=== PATIENT | male | born 1950 | race Caucasian/White ===

== ENCOUNTER 2017-12-26 22:13 | Emergency (ER) | payer MEDICARE, MEDICAID ==
[~2017-12-26] VITALS: Ht 188 cm; Wt 92.1 kg
[2017-12-26 22:31] VITALS: BP 95/52
[2017-12-26 22:44] LABS: HEMATOCRIT 37.2 % (42.0-52.0); HEMOGLOBIN 12.4 G/DL (14.2-18.0); MEAN CORPUSCULAR VOLUME 93 FL (80-99); PLATELET COUNT 95 K/UL (150-450); RED CELL DISTRIBUTION WIDTH 12.3 % (11.6-14.8); WHITE BLOOD COUNT 3.2 K/UL (4.8-10.8)
--- NOTE | 2017-12-26 22:47 | Emergency Room Report ---
History of Present Illness General Chief Complaint: Fever Source: Patient, Medical Record Present Illness HPI 67-year-old male sent from halfway for episode of fever today, was given Tylenol prior to arrival. Patient himself denies complaints Endorses 2 days of diarrhea, twice a day, last episode was 5 hours ago. no Blood in diarrhea, no recent antibiotic use No history of diverticulitis or colitis. No prior surgical history. Also endorses dry cough intermittent for one week, no history of asthma or COPD. Allergies: Coded Allergies: No Known Allergies (Unverified , 12/26/17) Patient History Past Medical History: DM, HTN Past Surgical History: none Pertinent Family History: none Social History: Denies: smoking, alcohol use, drug use Immunizations: UTD Reviewed Nursing Documentation: PMH: Agreed, PSxH: Agreed Nursing Documentation-PMH Past Medical History: No History, Except For Hx Hypertension: Yes Hx COPD: Yes Hx Diabetes: Yes - dm2 Hx Seizures: Yes - epilepsy Review of Systems All Other Systems: negative except mentioned in HPI Physical Exam Vital Signs Date Time Temp Pulse Resp B/P (MAP) Pulse Ox O2 Delivery O2 Flow Rate FiO2 12/26/17 22:04 99.3 90 16 84/50 96 Room Air Sp02 EP Interpretation: reviewed, normal General Appearance: normal inspection, well appearing, no apparent distress, alert, GCS 15, non-toxic, other - Very well-appearing, reading Bible in stretcher Head: normocephalic, atraumatic Eyes: bilateral eye PERRL, bilateral eye EOMI ENT: normal ENT inspection, hearing grossly normal, normal pharynx, no angioedema, normal voice, TMs + canals normal, uvula midline, moist mucus membranes Neck: normal inspection, full range of motion, supple, thyroid normal, no meningismus, no bony tend Respiratory: normal inspection, lungs clear, normal breath sounds, no rhonchi, no respiratory distress, no retraction, no accessory muscle use, no wheezing, speaking full sentences Cardiovascular #1: regular rate, rhythm, no edema, no JVD, normal capillary refill Gastrointestinal: normal inspection, normal bowel sounds, non tender, soft, no mass, no peritonitis, non-distended, no guarding, no hernia, no pulsatile mass Genitourinary: no CVA tenderness Musculoskeletal: normal inspection, back normal, normal range of motion, no calf tenderness, pelvis stable, Starla's Sign negative Neurologic: normal inspection, alert, oriented x3, responsive, armhole sewer III-XII nml as tested, motor strength/tone normal, cerebellar normal, normal gait, speech normal Psychiatric: normal inspection, judgement/insight normal, mood/affect normal, no suicidal/homicidal ideation, no delusions Skin: normal inspection, normal color, no rash Lymphatic: normal inspection, no adenopathy Medical Decision Making ER Course VSS, very well appearing Influenza negative Chest x-ray negative for pneumonia labs unremarkable No additional episodes of diarrhea in the ER No abdominal pain, nonfocal abdomen on serial exam urinalysis also negative for infection Will discharge back to [facility] ER course: Patient has remained stable during ED stay. Disposition: Patient is to be discharged to home. Patient is instructed to follow up with their primary care doctor within 1-2 days. Strict return precautions discussed with patient such as fever, chills, worsening/severe pain, nausea, vomiting, which may indicate severe illness. Patient verbalizes understanding and agrees with plan. Please note that this Emergency Department Report was dictated using [employer] technology software, occasionally this can lead to erroneous entry secondary to interpretation by the dictation equipment Rhythm Strip Diag. Results EP Interpretation: yes Rate: 77 Rhythm: NSR, no PVC's, no ectopy Chest X-Ray Diagnostic Results Chest X-Ray Diagnostic Results : Chest X-Ray Ordered: Yes # of Views/Limited/Complete: 1 View Indication: Other - cough EP Interpretation: Yes Interpretation: no consolidation, no effusion, no pneumothorax, no acute cardiopulmonary disease Impression: No acute disease Electronically Signed by: Dr Yesenia Brand MD Last Vital Signs Date Time Temp Pulse Resp B/P (MAP) Pulse Ox O2 Delivery O2 Flow Rate FiO2 12/26/17 22:31 98.4 78 16 95/52 96 Room Air Status: improved Disposition: [facility] YESENIA BRAND M.D. Dec 26, 2017 22:46
[2017-12-26 22:55] LABS: ANION GAP 7 mmol/L (5-15); BLOOD UREA NITROGEN 29 mg/dL (7-18); CARBON DIOXIDE 28 MMOL/L (21-32); CHLORIDE 106 MMOL/L (98-107); CREATININE 1.3 MG/DL (0.55-1.30); POTASSIUM 3.5 MMOL/L (3.5-5.1); SODIUM 141 MMOL/L (136-145)
[2017-12-26 22:59] LABS: ALANINE AMINOTRANSFERASE 27 U/L (12-78); ALBUMIN 3.1 G/DL (3.4-5.0); ALKALINE PHOSPHATASE 49 U/L (46-116); ASPARTATE AMINO TRANSFERASE 26 U/L (15-37); BILIRUBIN,TOTAL 0.5 MG/DL (0.2-1.0)
[2017-12-26 23:20] LABS: APPEARANCE,URINE CLEAR; BILIRUBIN, URINE NEGATIVE (NEGATIVE); GLUCOSE, URINE (UA) NEGATIVE (NEGATIVE); KETONES,URINE 1+ (NEGATIVE); LEUKOCYTE ESTERASE ,URINE 1+ (NEGATIVE); NITRITE,URINE NEGATIVE (NEGATIVE); PH,URINE 5 (4.5-8.0); PROTEIN,URINE 1+ (NEGATIVE); UROBILINOGEN,URINE NORMAL MG/DL (0.0-1.0)
[2017-12-26 23:21] LABS: COLOR,URINE YELLOW
[2017-12-26 23:56] VITALS: BP 95/49
[2017-12-27 01:00] VITALS: BP 99/57
--- NOTE | 2017-12-27 10:02 | Diagnostic Imaging Report ---
Indication: Dyspnea Technique: XRAY Chest 1v Comparison: None Findings: Heart size and mediastinal contours are within normal limits given technique. There is no focal consolidation, pneumothorax or pleural effusion. Osseous structures demonstrate no acute abnormality. Impression: No radiographic evidence of acute cardiopulmonary disease.
== END 2017-12-27 01:00 | disposition home or self-care (01) ==
LOC: EDBD 22:13 → EMR 22:23
DX: R50.9 Fever, unspecified (principal); R19.7 Diarrhea, unspecified; E11.9 Type 2 diabetes mellitus without complications; I10 Essential (primary) hypertension; J44.9 Chronic obstructive pulmonary disease, unspecified; G40.909 Epilepsy, unspecified, not intractable, without status epilepticus
CPT/HCPCS: 36415; 71045; 80053; 81003; 85007; 85025; 86710; 99283

== ENCOUNTER 2018-10-04 09:16 | Inpatient (IN) | payer MEDICARE, OTHER ==
[~2018-10-04] VITALS: Ht 188 cm; Wt 92.5 kg
[~2018-10-04 09:16] MED LIST: ACETAMINOPHEN325 M1 ORAL; AMBIEN5 MG ORAL; AMLODIPINE BESYL5 MG ORAL; ASCORBIC ACID500 MG ORAL; ASPIRIN325 MG ORAL; ATIVAN1 MG ORAL; COLACE100 MG ORAL; DEPAKOTE ER500 MG ORAL; ESCITALOPRAM OX20 MG ORAL; GEODON20 MG ORAL; JANUVIA100 MG ORAL; LEVETIRACETAM750 M1 ORAL; LITHIUM CARBON300 MG ORAL; LOSARTAN POTASS50 MG ORAL; METFORMIN HCL500 M1 ORAL; MIRALAX17 G2 ORAL; MYLANTA30 M1 ORAL; NOVOLOG100 UNIT/5; OMEPRAZOLE40 M1 ORAL; PROPRANOLOL HCL10 MG ORAL; PROSCAR5 MG ORAL; QUETIAPINE FUMA50 MG ORAL; SENNA8.6 M2 PO; TAMSULOSIN HCL0.4 MG ORAL
[2018-10-04] MEDS ORDERED: JANUVIA25 MG ORAL (09:24)
[2018-10-04] MEDS ORDERED: QUETIAPINE FUMA50 MG ORAL (09:24)
[2018-10-04] MEDS ORDERED: Isovue-300 100ml vial INJ PRN (10:00)
[2018-10-04] MEDS ORDERED: Morphine Sulfate 4mg/ml Inj (IV/IM USE ONLY) IVP ONE (10:00)
[2018-10-04 10:09] LABS: HEMATOCRIT 41.8 % (42.0-52.0); HEMOGLOBIN 14.8 G/DL (14.2-18.0); MEAN CORPUSCULAR VOLUME 89 FL (80-99); PLATELET COUNT 159 K/UL (150-450); RED BLOOD COUNT 4.69 M/UL (4.70-6.10); WHITE BLOOD COUNT 7.8 K/UL (4.8-10.8)
[2018-10-04 10:13] VITALS: BP 159/70
--- NOTE | 2018-10-04 10:25 | Emergency Room Report ---
History of Present Illness General Chief Complaint: Abdominal Pain Source: Patient, Medical Record, EMS Present Illness HPI Patient presents with vomiting and abdominal pain. This is been worsening over the last 3 days. He now points to his right lower quadrant with pain is worse right now he rates it 7/10 and achy pressure. He's been vomiting dark material also and having difficulty keeping anything down. The patient's been moving his bowels without difficulty. He denies any melena. The patient has a history of either Parkinson's or neuropathy in the back of his brain with atrophy and tremors from taking psychiatric medication. He has chronic weakness. H/O seizures. H/O diabetes. H/O bipolar disorder No cough, sore throat, rashes, joint pain, headache, anxiety. Allergies: Coded Allergies: No Known Allergies (Unverified , 12/26/17) Patient History Past Medical History: see triage record Social History: Denies: smoking - former Social History Narrative assisted living Reviewed Nursing Documentation: PMH: Agreed; PSxH: Agreed Nursing Documentation-PMH Past Medical History: No History, Except For Hx Hypertension: Yes Hx COPD: Yes Hx Diabetes: Yes Hx Cancer: No Hx Gastrointestinal Problems: No - gerd Hx Neurological Problems: Yes - PARKINSONS Hx Seizures: Yes Review of Systems All Other Systems: negative except mentioned in HPI Physical Exam Vital Signs Date Time Temp Pulse Resp B/P (MAP) Pulse Ox O2 Delivery O2 Flow Rate FiO2 10/04/18 09:16 98.2 73 22 162/70 97 Room Air Sp02 EP Interpretation: reviewed, normal General Appearance: well appearing, no apparent distress, GCS 15 Head: normocephalic Eyes: bilateral eye normal inspection, bilateral eye PERRL ENT: moist mucus membranes Neck: supple Respiratory: lungs clear, normal breath sounds Cardiovascular #1: regular rate, rhythm Cardiovascular #2: 2+ radial (R) Gastrointestinal: normal inspection, normal bowel sounds, no mass, non- distended, no guarding, no rebound, tenderness - RLQ Rectal: other - vomit Heme + Musculoskeletal: back normal, gait/station normal, normal range of motion Neurologic: alert, oriented x3, security sergeant III-XII nml as tested, motor strength/tone normal, DTRs symmetric, sensory intact, speech normal, other - tremor, thenar atrophy Skin: normal inspection, warm/dry Medical Decision Making Diagnostic Impression: Primary Impression: Abdominal pain Qualified Codes: R10.31 - Right lower quadrant pain Additional Impressions: UGI bleed Elevated LFTs ER Course Patient presents with 3 days of abdominal pain and vomiting. His vomiting guaiac Positive material. Differential includes gastritis, gastroenteritis appendicitis pancreatitis, peptic ulcer disease amongst others. Evaluation will be with EKG, labs and CT the abdomen. The patient will be treated with IV hydration, Pepcid, Zofran and morphine. EKG with normal sinus rhythm normal EKG rate of 75 normal intervals. WBC normal but L shift. CMP with elevated LFTs. UA with pyuria. Antibiotics begun. CT with possible cholecystitis. Physical exam against cholecystitis at this time. Pain free after analgesia. Still needs admission for further work up. Admit med Dr. Sanabria. Laboratory Tests Test 10/04/18 09:57 10/04/18 10:50 10/05/18 05:55 White Blood Count 7.8 K/UL (4.8-10.8) 7.8 K/UL (4.8-10.8) Red Blood Count 4.69 M/UL (4.70-6.10) L 4.27 M/UL (4.70-6.10) L Hemoglobin 14.8 G/DL (14.2-18.0) 13.2 G/DL (14.2-18.0) L Hematocrit 41.8 % (42.0-52.0) L 38.3 % (42.0-52.0) L Mean Corpuscular Volume 89 FL (80-99) 90 FL (80-99) Mean Corpuscular Hemoglobin 31.5 PG (27.0-31.0) H 30.9 PG (27.0-31.0) Mean Corpuscular Hemoglobin Concent 35.4 G/DL (32.0-36.0) 34.3 G/DL (32.0-36.0) Red Cell Distribution Width 11.0 % (11.6-14.8) L 11.4 % (11.6-14.8) L Platelet Count 159 K/UL (150-450) 129 K/UL (150-450) L Mean Platelet Volume 6.5 FL (6.5-10.1) 5.8 FL (6.5-10.1) L Neutrophils (%) (Auto) % (45.0-75.0) 76.7 % (45.0-75.0) H Lymphocytes (%) (Auto) % (20.0-45.0) 9.9 % (20.0-45.0) L Monocytes (%) (Auto) % (1.0-10.0) 12.1 % (1.0-10.0) H Eosinophils (%) (Auto) % (0.0-3.0) 0.6 % (0.0-3.0) Basophils (%) (Auto) % (0.0-2.0) 0.7 % (0.0-2.0) Differential Total Cells Counted 100 Neutrophils % (Manual) 92 % (45-75) H Lymphocytes % (Manual) 2 % (20-45) L Monocytes % (Manual) 6 % (1-10) Eosinophils % (Manual) 0 % (0-3) Basophils % (Manual) 0 % (0-2) Band Neutrophils 0 % (0-8) Platelet Estimate Adequate Platelet Morphology Normal Anisocytosis 1+ Prothrombin Time 10.1 SEC (9.30-11.50) 10.1 SEC (9.30-11.50) Prothrombin Time INR 1.0 (0.9-1.1) 1.0 (0.9-1.1) PTT 25 SEC (23-33) 26 SEC (23-33) Sodium Level 141 MMOL/L (136-145) 140 MMOL/L (136-145) Potassium Level 4.1 MMOL/L (3.5-5.1) 4.1 MMOL/L (3.5-5.1) Chloride Level 103 MMOL/L (98-107) 108 MMOL/L (98-107) H Carbon Dioxide Level 26 MMOL/L (21-32) 29 MMOL/L (21-32) Anion Gap 13 mmol/L (5-15) 3 mmol/L (5-15) L Blood Urea Nitrogen 21 mg/dL (7-18) H 16 mg/dL (7-18) Creatinine 1.2 MG/DL (0.55-1.30) 0.9 MG/DL (0.55-1.30) Estimate Glomerular Filtration Rate > 60 mL/min (>60) > 60 mL/min (>60) Glucose Level 189 MG/DL (74-106) H 161 MG/DL (74-106) H Calcium Level 9.6 MG/DL (8.5-10.1) 8.4 MG/DL (8.5-10.1) L Total Bilirubin 0.6 MG/DL (0.2-1.0) 0.5 MG/DL (0.2-1.0) Aspartate Amino Transferase (AST) 202 U/L (15-37) H 68 U/L (15-37) H Alanine Aminotransferase (ALT) 465 U/L (12-78) H 248 U/L (12-78) H Alkaline Phosphatase 159 U/L (46-116) H 112 U/L (46-116) Total Creatine Kinase 142 U/L (26-308) Troponin I 0.003 ng/mL (0.000-0.056) Total Protein 8.0 G/DL (6.4-8.2) 6.9 G/DL (6.4-8.2) Albumin 3.9 G/DL (3.4-5.0) 3.1 G/DL (3.4-5.0) L Globulin 4.1 g/dL 3.8 g/dL Albumin/Globulin Ratio 1.0 (1.0-2.7) 0.8 (1.0-2.7) L Lipase 109 U/L (73-393) 75 U/L (73-393) Urine Color Pale yellow Urine Appearance Clear Urine pH 9 (4.5-8.0) Urine Specific [place] 1.015 (1.005-1.035) Urine Protein 2+ (NEGATIVE) H Urine Glucose (UA) 1+ (NEGATIVE) H Urine Ketones 3+ (NEGATIVE) H Urine Blood 1+ (NEGATIVE) H Urine Nitrite Negative (NEGATIVE) Urine Bilirubin Negative (NEGATIVE) Urine Urobilinogen Normal MG/DL (0.0-1.0) Urine Leukocyte Esterase Negative (NEGATIVE) Urine RBC 2-4 /HPF (0 - 0) H Urine WBC 0-2 /HPF (0 - 0) Urine Squamous Epithelial Cells Occasional /LPF Urine Amorphous Sediment Few /LPF (NONE) H Urine Bacteria Occasional /HPF (NONE) Amylase Level 45 U/L (25-115) Hepatitis A IgM Antibody Pending Hepatitis B Surface Antigen Pending Hepatitis B Core IgM Antibody Pending Hepatitis C Antibody Pending EKG Diagnostic Results Rate: normal Rhythm: NSR ST Segments: no acute changes Rhythm Strip Diag. Results EP Interpretation: yes Rhythm: NSR, no PVC's, no ectopy Chest X-Ray Diagnostic Results Chest X-Ray Diagnostic Results : Chest X-Ray Ordered: Yes Indication: Other EP Interpretation: Yes Interpretation: no consolidation, no effusion, no pneumothorax Impression: No acute disease Electronically Signed by: Marco Shepard MD CT/MRI/US Diagnostic Results CT/MRI/US Diagnostic Results : Imaging Test Ordered: abd pelvis Impression Cholelithiasis. Cholecystitis not excluded. Correlate clinically Mild perinephric stranding nonspecific. Atherosclerotic disease. Calcification within the liver near the dome nonspecific in nature. Small right inguinal hernia containing fat. L4 spondylolysis. Grade 1 spondylolisthesis L4 on 5. Last Vital Signs Date Time Temp Pulse Resp B/P (MAP) Pulse Ox O2 Delivery O2 Flow Rate FiO2 10/04/18 10:13 98.0 72 15 159/70 100 Room Air Status: improved Disposition: ADMITTED INPATIENT Condition: Serious Referrals: Sharif Sanabria DO (PCP) Marco Shepard MD Oct 04, 2018 10:25
[2018-10-04 10:33] LABS: ANION GAP 13 mmol/L (5-15); BLOOD UREA NITROGEN 21 mg/dL (7-18); CALCIUM 9.6 MG/DL (8.5-10.1); CARBON DIOXIDE 26 MMOL/L (21-32); CHLORIDE 103 MMOL/L (98-107); CREATININE 1.2 MG/DL (0.55-1.30); POTASSIUM 4.1 MMOL/L (3.5-5.1); SODIUM 141 MMOL/L (136-145)
[2018-10-04 10:43] LABS: ALANINE AMINOTRANSFERASE 465 U/L (12-78); ALBUMIN 3.9 G/DL (3.4-5.0); ALKALINE PHOSPHATASE 159 U/L (46-116); ASPARTATE AMINO TRANSFERASE 202 U/L (15-37); BILIRUBIN,TOTAL 0.6 MG/DL (0.2-1.0); CREATINE KINASE 142 U/L (26-308)
--- NOTE | 2018-10-04 10:54 | Diagnostic Imaging Report ---
Indication: Dyspnea Comparison: 12/26/2017 A single view chest radiograph was obtained. Findings: Cardiomediastinal appearance is within normal limits for age. The lungs are clear. Pulmonary vascularity is appropriate. The diaphragmatic contour is smooth and costophrenic angles are sharp. No pleural effusions are identified. Degenerative changes of the thoracic spine noted. Impression: No acute findings
[2018-10-04 11:22] LABS: APPEARANCE,URINE CLEAR; BILIRUBIN, URINE NEGATIVE (NEGATIVE); COLOR,URINE PALE YELLOW; GLUCOSE, URINE (UA) 1+ (NEGATIVE); KETONES,URINE 3+ (NEGATIVE); LEUKOCYTE ESTERASE ,URINE NEGATIVE (NEGATIVE); NITRITE,URINE NEGATIVE (NEGATIVE); PH,URINE 9 (4.5-8.0); PROTEIN,URINE 2+ (NEGATIVE); UROBILINOGEN,URINE NORMAL MG/DL (0.0-1.0)
[2018-10-04 12:05] VITALS: BP 147/57
--- NOTE | 2018-10-04 12:50 | Diagnostic Imaging Report ---
Indication: Abdominal pain Technique: Continuous helical transaxial imaging of the abdomen and pelvis was obtained from the lung bases to the pubic symphysis during intravenous contrast administration. Coronal 2-D reformats were also obtained. Study obtained in a Siemens sensation [address] Automatic Exposure Control was utilized. Total Dose length Product (DLP): 920.[address] Dose Index Volume (CTDIvol): 16.14 mGy Comparison: None Findings: Lung bases are clear. Prominent gallstone demonstrated. There may be mild gallbladder wall thickening. Correlate clinically for cholecystitis. Biliary ducts are unremarkable. The pancreas, spleen and adrenal glands are unremarkable. There is a peripheral focus of calcification within the liver which is otherwise unremarkable. Perinephric stranding noted mild in degree nonspecific. Moderate aortoiliac calcifications are present. No free fluid or free air identified. Urinary bladder is mildly distended. There is a small right inguinal hernia containing fat. There is narrowing of intervertebral discs and accompanying endplate osteophyte formation. Hypertrophied facet joints also demonstrated.. Mild anterolisthesis demonstrated at L4-5. Bilateral pars interarticularis defects are demonstrated at L4. IMPRESSION: Cholelithiasis. Cholecystitis not excluded. Correlate clinically Mild perinephric stranding nonspecific. Atherosclerotic disease. Calcification within the liver near the dome nonspecific in nature. Small right inguinal hernia containing fat. L4 spondylolysis. Grade 1 spondylolisthesis L4 on 5. The CT scanner at [facility] is accredited by the [employer] and the scans are performed using dose optimization techniques as appropriate to a performed exam including Automatic Exposure control.
[2018-10-04] MEDS ORDERED: Morphine Sulfate 2mg/ml Inj IVP PRN (13:00)
[2018-10-04] MEDS ORDERED: Miralax 17gm pkt ORAL PRN (13:00)
[2018-10-04] MEDS ORDERED: Mylanta II UD 30ml ORAL PRN (13:00)
[2018-10-04] MEDS ORDERED: Nitroglycerin Subl 0.4mg tab SL PRN (13:00)
--- NOTE | 2018-10-04 13:08 | Consultation ---
History of Present Illness General Date patient seen: Oct 04, 2018 Chief Complaint: Abdominal Pain Present Illness HPI 68 year old male with history of CAD, COPD Parkinson's, neuropathy, DM and psychosis presented to ER with vomiting and abdominal pain over the last 3 days. He's been vomiting dark material also and having difficulty keeping anything down. Allergies: Coded Allergies: No Known Allergies (Unverified , 12/26/17) Medication History Scheduled Amlodipine Besylate* (Amlodipine Besylate*), 5 MG ORAL DAILY, (Reported) Divalproex Sodium* (Depakote Er*), 500 MG ORAL EVERY 12 HOURS, (Reported) Finasteride* (Proscar*), 5 MG ORAL DAILY, (Reported) Losartan Potassium* (Losartan Potassium*), 50 MG ORAL DAILY, (Reported) Quetiapine Fumarate* (Quetiapine Fumarate*), 50 MG ORAL BID, (Reported) Sitagliptin* (Januvia*), 100 MG ORAL DAILY, (Reported) Tamsulosin Hcl (Tamsulosin Hcl*), 0.4 MG ORAL BEDTIME, (Reported) Ziprasidone Hcl* (Geodon*), 20 MG ORAL TWICE A DAY, (Reported) Scheduled PRN Al Hydroxide/mg Hydroxide (Mag-Al Liquid), 30 ML ORAL Q6HR PRN for INDIGESTION, (Reported) Discontinued Medications Acetaminophen* (Acetaminophen 325MG Tablet*), 650 MG ORAL Q4H PRN for Mild Pain/ Temp > 100.5, (Reported) Discontinued Reason: Therapy completed Ascorbic Acid* (Ascorbic Acid*), 500 MG ORAL DAILY, (Reported) Discontinued Reason: Therapy completed Aspirin* (Aspirin*), 325 MG ORAL DAILY, (Reported) Discontinued Reason: Therapy completed Docusate Sodium* (Colace*), 250 MG ORAL BEDTIME, (Reported) Discontinued Reason: Therapy completed Escitalopram Oxalate (Escitalopram Oxalate*), 20 MG ORAL DAILY, (Reported) Discontinued Reason: Therapy completed Insulin Aspart (Novolog), AC+HS, (Reported) Discontinued Reason: Therapy completed Levetiracetam (Levetiracetam), 750 MG ORAL BID, (Reported) Discontinued Reason: Therapy completed Riverbend Carbonate* (Riverbend*), 300 MG ORAL EVERY 8 HOURS, (Reported) Discontinued Reason: Therapy completed Lorazepam* (Ativan*), 1 MG ORAL BID PRN for For Anxiety, (Reported) Discontinued Reason: Therapy completed Metformin Hcl* (Metformin Hcl*), 500 MG ORAL TWICE A DAY, (Reported) Discontinued Reason: Therapy completed Omeprazole (Omeprazole), 40 MG ORAL DAILY, (Reported) Discontinued Reason: Therapy completed Polyethylene Glycol 3350* (Miralax*), 17 GM ORAL HS PRN for Constipation, ( Reported) Discontinued Reason: Therapy completed Propranolol Hcl* (Inderal*), 10 MG ORAL THREE TIMES A DAY, (Reported) Discontinued Reason: Therapy completed Quetiapine Fumarate* (Quetiapine Fumarate*), 50 MG ORAL BID, (Reported) Discontinued Reason: Therapy completed Sennosides (Senna), 8.6 MG PO BEDTIME, (Reported) Discontinued Reason: Therapy completed Sitagliptin (Januvia), 100 MG ORAL DAILY, (Reported) Discontinued Reason: Therapy completed Zolpidem Tartrate* (Ambien*), 5 MG ORAL BEDTIME PRN for Insomnia, (Reported) Discontinued Reason: Therapy completed Patient History Healthcare decision maker Resuscitation status Advanced Directive on File Past Medical/Surgical History Past Medical/Surgical History: (1) Parkinson disease (2) Psychiatric disorder (3) CAD (coronary artery disease) (4) COPD (chronic obstructive pulmonary disease) Review of Systems All Other Systems: negative except mentioned in HPI Physical Exam General Appearance: WD/WN Lines, tubes and drains: peripheral HEENT: normocephalic, atraumatic Neck: non-tender, normal alignment Respiratory/Chest: chest wall non-tender, lungs clear Breasts: no masses Cardiovascular/Chest: normal peripheral pulses Abdomen: normal bowel sounds, non tender Genitourinary/Rectal: normal genital exam, normal rectal exam Extremities: normal range of motion Skin Exam: normal pigmentation Neurologic: clarity developer II-XII grossly normal Last 24 Hour Vital Signs Date Time Temp Pulse Resp B/P (MAP) Pulse Ox O2 Delivery O2 Flow Rate FiO2 10/04/18 12:05 98.2 75 17 147/57 98 Room Air 10/04/18 10:13 98.0 72 15 159/70 100 Room Air 10/04/18 10:13 72 15 Room Air 10/04/18 09:16 98.2 73 22 162/70 97 Room Air Laboratory Tests Test 10/04/18 09:57 10/04/18 10:50 White Blood Count 7.8 K/UL (4.8-10.8) Red Blood Count 4.69 M/UL (4.70-6.10) L Hemoglobin 14.8 G/DL (14.2-18.0) Hematocrit 41.8 % (42.0-52.0) L Mean Corpuscular Volume 89 FL (80-99) Mean Corpuscular Hemoglobin 31.5 PG (27.0-31.0) H Mean Corpuscular Hemoglobin Concent 35.4 G/DL (32.0-36.0) Red Cell Distribution Width 11.0 % (11.6-14.8) L Platelet Count 159 K/UL (150-450) Mean Platelet Volume 6.5 FL (6.5-10.1) Neutrophils (%) (Auto) % (45.0-75.0) Lymphocytes (%) (Auto) % (20.0-45.0) Monocytes (%) (Auto) % (1.0-10.0) Eosinophils (%) (Auto) % (0.0-3.0) Basophils (%) (Auto) % (0.0-2.0) Differential Total Cells Counted 100 Neutrophils % (Manual) 92 % (45-75) H Lymphocytes % (Manual) 2 % (20-45) L Monocytes % (Manual) 6 % (1-10) Eosinophils % (Manual) 0 % (0-3) Basophils % (Manual) 0 % (0-2) Band Neutrophils 0 % (0-8) Platelet Estimate Adequate Platelet Morphology Normal Anisocytosis 1+ Prothrombin Time 10.1 SEC (9.30-11.50) Prothromb Time International Ratio 1.0 (0.9-1.1) Activated Partial Thromboplast Time 25 SEC (23-33) Sodium Level 141 MMOL/L (136-145) Potassium Level 4.1 MMOL/L (3.5-5.1) Chloride Level 103 MMOL/L (98-107) Carbon Dioxide Level 26 MMOL/L (21-32) Anion Gap 13 mmol/L (5-15) Blood Urea Nitrogen 21 mg/dL (7-18) H Creatinine 1.2 MG/DL (0.55-1.30) Estimat Glomerular Filtration Rate > 60 mL/min (>60) Glucose Level 189 MG/DL (74-106) H Calcium Level 9.6 MG/DL (8.5-10.1) Total Bilirubin 0.6 MG/DL (0.2-1.0) Aspartate Amino Transf (AST/SGOT) 202 U/L (15-37) H Alanine Aminotransferase (ALT/SGPT) 465 U/L (12-78) H Alkaline Phosphatase 159 U/L (46-116) H Total Creatine Kinase 142 U/L (26-308) Troponin I 0.003 ng/mL (0.000-0.056) Total Protein 8.0 G/DL (6.4-8.2) Albumin 3.9 G/DL (3.4-5.0) Globulin 4.1 g/dL Albumin/Globulin Ratio 1.0 (1.0-2.7) Lipase 109 U/L (73-393) Urine Color Pale yellow Urine Appearance Clear Urine pH 9 (4.5-8.0) Urine Specific [place] 1.015 (1.005-1.035) Urine Protein 2+ (NEGATIVE) H Urine Glucose (UA) 1+ (NEGATIVE) H Urine Ketones 3+ (NEGATIVE) H Urine Blood 1+ (NEGATIVE) H Urine Nitrite Negative (NEGATIVE) Urine Bilirubin Negative (NEGATIVE) Urine Urobilinogen Normal MG/DL (0.0-1.0) Urine Leukocyte Esterase Negative (NEGATIVE) Urine RBC 2-4 /HPF (0 - 0) H Urine WBC 0-2 /HPF (0 - 0) Urine Squamous Epithelial Cells Occasional /LPF Urine Amorphous Sediment Few /LPF (NONE) H Urine Bacteria Occasional /HPF (NONE) Microbiology Date/Time Source Procedure Growth Status 10/04/18 10:52 Rectum Received Height (Feet): 6 Height (Inches): 2.00 Weight (Pounds): 192 Medications Current Medications Medications (Trade) Dose Ordered Sig/Deon Route PRN Reason Start Time Stop Time Status Last Admin Dose Admin Barium Sulfate (Readi-Cat 2) 450 ml NOW PRN ORAL Radiology Procedure 10/04/18 10:00 10/06/18 09:47 Iopamidol (Isovue-300 100ml) 100 ml NOW PRN INJ Radiology Procedure 10/04/18 10:00 Sodium Chloride 1,000 ml @ 300 mls/hr Q3H20M IV 10/04/18 10:00 11/03/18 09:59 10/04/18 10:00 Assessment/Plan Problem List: (1) UGI bleed ICD Codes: K92.2 - Gastrointestinal hemorrhage, unspecified SNOMED: 45372258 (2) Abdominal pain ICD Codes: R10.9 - Unspecified abdominal pain SNOMED: 23023796 (3) COPD (chronic obstructive pulmonary disease) ICD Codes: J44.9 - Chronic obstructive pulmonary disease, unspecified SNOMED: 18792048 (4) CAD (coronary artery disease) ICD Codes: I25.10 - Atherosclerotic heart disease of [place] coronary artery without angina pectoris SNOMED: 70471314 (5) Psychiatric disorder ICD Codes: F99 - Mental disorder, not otherwise specified SNOMED: 80618590, 839277998 (6) Parkinson disease ICD Codes: G20 - Parkinson's disease SNOMED: 09306434 (7) Failure to thrive SNOMED: 05550072 Assessment/Plan NPO iv fluids check h/h prbc prn GI evaluation sliding scale diabetic diet dvt prophylaxis Ivone Mojica MD Oct 04, 2018 13:08
[2018-10-04] MEDS: D5 1/2NS 1,000 ML IV SCH (15:19)
--- NOTE | 2018-10-04 15:49 | GI Initial Consult Note ---
History of Present Illness General Date patient seen: Oct 04, 2018 Time patient seen: 15:58 Reason for Hospitalization: Abdominal Pain Referring physician: NINA VINSON Reason for Consultation: UGIB Present Illness HPI Patient presents with vomiting and abdominal pain. This is been worsening over the last 3 days. He now points to his right lower quadrant with pain is worse right now he rates it 7/10 and achy pressure. He's been vomiting dark material also and having difficulty keeping anything down. The patient's been moving his bowels without difficulty. He denies any melena. The patient has a history of either Parkinson's or neuropathy in the back of his brain with atrophy and tremors from taking psychiatric medication. GI consulted for reported of UGIB. Pt seen, awake A&Ox4 NAD with no active s/ sx of N/V/D or constipation at this time. Pt reported severe vomiting and nausea last night reported dark contents. The patient has no history of endoscopy nor colonoscopy. He has been a diabetic for over 20 years. Presents today with no anemia, however noted with transaminitis with elevated alkaline phosphatase. Home Meds Reported Medications Quetiapine Fumarate* (QUETIAPINE FUMARATE*) 50 Mg Tablet, 50 MG ORAL BID, TAB 10/04/18 Sitagliptin* (JANUVIA*) 25 Mg Tablet, 100 MG ORAL DAILY, TAB 10/04/18 Al Hydroxide/mg Hydroxide (Mag-Al Liquid) 30 Ml Oral.susp, 30 ML ORAL Q6HR PRN for INDIGESTION, ML 06/16/18 Ziprasidone Hcl* (GEODON*) 20 Mg Capsule, 20 MG ORAL TWICE A DAY, CAP 0 Refills 06/13/18 Tamsulosin Hcl (TAMSULOSIN HCL*) 0.4 Mg Cap.er.24h, 0.4 MG ORAL BEDTIME, CAP 06/13/18 Losartan Potassium* (LOSARTAN POTASSIUM*) 50 Mg Tablet, 50 MG ORAL DAILY, TAB 06/13/18 Finasteride* (PROSCAR*) 5 Mg Tablet, 5 MG ORAL DAILY, TAB 0 Refills 06/13/18 Divalproex Sodium* (DEPAKOTE ER*) 500 Mg Tab.er.24h, 500 MG ORAL EVERY 12 HOURS , TAB 06/13/18 Amlodipine Besylate* (AMLODIPINE BESYLATE*) 5 Mg Tablet, 5 MG ORAL DAILY, TAB 06/13/18 Discontinued Reported Medications Zolpidem Tartrate* (AMBIEN*) 5 Mg Tablet, 5 MG ORAL BEDTIME PRN for Insomnia, TAB 06/16/18 Polyethylene Glycol 3350* (MIRALAX*) 17 Gm Powd.pack, 17 GM ORAL HS PRN for Constipation, PACKET 06/16/18 Lorazepam* (ATIVAN*) 1 Mg Tablet, 1 MG ORAL BID PRN for For Anxiety, TAB 06/16/18 Insulin Aspart (NOVOLOG) 100 Unit/1 Ml Vial, AC+HS 06/16/18 Acetaminophen* (ACETAMINOPHEN 325MG TABLET*) 325 Mg Tablet, 650 MG ORAL Q4H PRN for Mild Pain/Temp > 100.5, TAB 06/16/18 Propranolol Hcl* (INDERAL*) 10 Mg Tablet, 10 MG ORAL THREE TIMES A DAY, TAB 0 Refills 06/13/18 Sennosides (SENNA) 8.6 Mg Tablet, 8.6 MG PO BEDTIME, TAB 06/13/18 Ascorbic Acid* (ASCORBIC ACID*) 500 Mg Tablet, 500 MG ORAL DAILY, TAB 06/13/18 Sitagliptin (Januvia) 100 Mg Tablet, 100 MG ORAL DAILY, TAB 06/13/18 Quetiapine Fumarate* (QUETIAPINE FUMARATE*) 50 Mg Tablet, 50 MG ORAL BID, TAB 06/13/18 Omeprazole (OMEPRAZOLE) 40 Mg Capsule.dr, 40 MG ORAL DAILY, CAP 06/13/18 Metformin Hcl* (METFORMIN HCL*) 500 Mg Tablet, 500 MG ORAL TWICE A DAY, TAB 06/13/18 [place] Carbonate* (LITHIUM*) 300 Mg Capsule, 300 MG ORAL EVERY 8 HOURS, CAP 0 Refills 06/13/18 Levetiracetam (LEVETIRACETAM) 750 Mg Tab.er.24h, 750 MG ORAL BID, TAB 0 Refills 06/13/18 Escitalopram Oxalate (ESCITALOPRAM OXALATE*) 20 Mg Tablet, 20 MG ORAL DAILY, TAB 0 Refills 06/13/18 Docusate Sodium* (COLACE*) 100 Mg Capsule, 250 MG ORAL BEDTIME, CAP 06/13/18 Aspirin* (ASPIRIN*) 325 Mg Tablet, 325 MG ORAL DAILY, TAB 06/13/18 Med list reviewed/reconciled: Yes Allergies: Coded Allergies: No Known Allergies (Unverified , 12/26/17) Patient History History Provided By: Patient, Medical Record PMH Narrative Past Medical History: No History, Except For Hx Hypertension: Yes Hx COPD: Yes Hx Diabetes: Yes Hx Cancer: No Hx Gastrointestinal Problems: No - gerd Hx Neurological Problems: Yes - PARKINSON Hx Seizures: Yes Pertinent Family History: none Social History: Denies: smoking, alcohol use, drug use, other Review of Systems All Other Systems: negative except mentioned in HPI Physical Exam Vital Signs Date Time Temp Pulse Resp B/P (MAP) Pulse Ox O2 Delivery O2 Flow Rate FiO2 10/04/18 09:16 98.2 73 22 162/70 97 Room Air Sp02 EP Interpretation: reviewed, normal Labs Laboratory Tests Test 10/04/18 09:57 10/04/18 10:50 White Blood Count 7.8 K/UL (4.8-10.8) Red Blood Count 4.69 M/UL (4.70-6.10) L Hemoglobin 14.8 G/DL (14.2-18.0) Hematocrit 41.8 % (42.0-52.0) L Mean Corpuscular Volume 89 FL (80-99) Mean Corpuscular Hemoglobin 31.5 PG (27.0-31.0) H Mean Corpuscular Hemoglobin Concent 35.4 G/DL (32.0-36.0) Red Cell Distribution Width 11.0 % (11.6-14.8) L Platelet Count 159 K/UL (150-450) Mean Platelet Volume 6.5 FL (6.5-10.1) Neutrophils (%) (Auto) % (45.0-75.0) Lymphocytes (%) (Auto) % (20.0-45.0) Monocytes (%) (Auto) % (1.0-10.0) Eosinophils (%) (Auto) % (0.0-3.0) Basophils (%) (Auto) % (0.0-2.0) Differential Total Cells Counted 100 Neutrophils % (Manual) 92 % (45-75) H Lymphocytes % (Manual) 2 % (20-45) L Monocytes % (Manual) 6 % (1-10) Eosinophils % (Manual) 0 % (0-3) Basophils % (Manual) 0 % (0-2) Band Neutrophils 0 % (0-8) Platelet Estimate Adequate Platelet Morphology Normal Anisocytosis 1+ Prothrombin Time 10.1 SEC (9.30-11.50) Prothromb Time International Ratio 1.0 (0.9-1.1) Activated Partial Thromboplast Time 25 SEC (23-33) Sodium Level 141 MMOL/L (136-145) Potassium Level 4.1 MMOL/L (3.5-5.1) Chloride Level 103 MMOL/L (98-107) Carbon Dioxide Level 26 MMOL/L (21-32) Anion Gap 13 mmol/L (5-15) Blood Urea Nitrogen 21 mg/dL (7-18) H Creatinine 1.2 MG/DL (0.55-1.30) Estimat Glomerular Filtration Rate > 60 mL/min (>60) Glucose Level 189 MG/DL (74-106) H Calcium Level 9.6 MG/DL (8.5-10.1) Total Bilirubin 0.6 MG/DL (0.2-1.0) Aspartate Amino Transf (AST/SGOT) 202 U/L (15-37) H Alanine Aminotransferase (ALT/SGPT) 465 U/L (12-78) H Alkaline Phosphatase 159 U/L (46-116) H Total Creatine Kinase 142 U/L (26-308) Troponin I 0.003 ng/mL (0.000-0.056) Total Protein 8.0 G/DL (6.4-8.2) Albumin 3.9 G/DL (3.4-5.0) Globulin 4.1 g/dL Albumin/Globulin Ratio 1.0 (1.0-2.7) Lipase 109 U/L (73-393) Urine Color Pale yellow Urine Appearance Clear Urine pH 9 (4.5-8.0) Urine Specific [place] 1.015 (1.005-1.035) Urine Protein 2+ (NEGATIVE) H Urine Glucose (UA) 1+ (NEGATIVE) H Urine Ketones 3+ (NEGATIVE) H Urine Blood 1+ (NEGATIVE) H Urine Nitrite Negative (NEGATIVE) Urine Bilirubin Negative (NEGATIVE) Urine Urobilinogen Normal MG/DL (0.0-1.0) Urine Leukocyte Esterase Negative (NEGATIVE) Urine RBC 2-4 /HPF (0 - 0) H Urine WBC 0-2 /HPF (0 - 0) Urine Squamous Epithelial Cells Occasional /LPF Urine Amorphous Sediment Few /LPF (NONE) H Urine Bacteria Occasional /HPF (NONE) General Appearance: well appearing, no apparent distress, alert Head: normocephalic EENT: PERRL/EOMI, normal ENT inspection Neck: supple Respiratory: normal breath sounds, no respiratory distress Cardiovascular: normal rate Gastrointestinal: normal inspection, non tender, soft, normal bowel sounds, non -distended Rectal: deferred Genitourinary: deferred Musculoskeletal: normal inspection, back normal Neurologic: normal inspection, alert, oriented x3, responsive Psychiatric: normal inspection, judgement/insight normal, memory normal Skin: normal inspection, normal color, no rash, warm/dry, palpation normal, well hydrated Lymphatic: normal inspection, no adenopathy Current Medications Current Medications Medications (Trade) Dose Ordered Sig/Deon Route PRN Reason Start Time Stop Time Status Last Admin Dose Admin Acetaminophen (Tylenol) 650 mg Q4H PRN ORAL fever 10/04/18 13:00 11/03/18 12:59 Al Hydroxide/Mg Hydroxide (Mylanta II) 30 ml Q6H PRN ORAL dyspepsia 10/04/18 13:00 11/03/18 12:59 Amlodipine Besylate (Norvasc) 5 mg DAILY ORAL 10/05/18 09:00 11/04/18 08:59 Barium Sulfate (Readi-Cat 2) 450 ml NOW PRN ORAL Radiology Procedure 10/04/18 10:00 10/06/18 09:47 Dextrose (Dextrose 50%) 25 ml Q30M PRN IV Hypoglycemia 10/04/18 13:15 11/03/18 13:06 Dextrose (Dextrose 50%) 50 ml Q30M PRN IV hypoglycemia 10/04/18 13:15 11/03/18 13:14 Dextrose/Sodium Chloride 1,000 ml @ 75 mls/hr [id number] IV 10/04/18 13:04 11/03/18 13:03 10/04/18 15:19 Diphenhydramine HCl (Benadryl) 25 mg Q6H PRN ORAL Itching/Pruritis 10/04/18 13:00 11/03/18 12:59 Divalproex Sodium (Depakote ER) 500 mg EVERY 12 HOURS ORAL 10/04/18 21:00 11/03/18 20:59 Finasteride (Proscar) 5 mg DAILY ORAL 10/05/18 09:00 11/04/18 08:59 Insulin Aspart (NovoLOG) BEFORE MEALS AND HS SUBQ 10/04/18 16:30 11/03/18 16:29 Iopamidol (Isovue-300 100ml) 100 ml NOW PRN INJ Radiology Procedure 10/04/18 10:00 Losartan Potassium (Cozaar) 50 mg DAILY ORAL 10/05/18 09:00 11/04/18 08:59 Morphine Sulfate (Morphine Sulfate) 2 mg Q4H PRN IVP severe Pain (Pain Scale 7-10) 10/04/18 13:00 10/11/18 12:59 Nitroglycerin (Ntg) 0.4 mg Q5M X 3 DOSES PRN SL Prn Chest Pain 10/04/18 13:00 11/03/18 12:59 Ondansetron HCl (Zofran) 4 mg Q6H PRN IVP Nausea & Vomiting 10/04/18 13:00 11/03/18 12:59 Polyethylene Glycol (Miralax) 17 gm HSPRN PRN ORAL Constipation 10/04/18 13:00 11/03/18 12:59 Quetiapine Fumarate (SEROquel) 50 mg BID ORAL 10/04/18 18:00 11/03/18 17:59 Sitagliptin Phosphate (Januvia) 100 mg DAILY ORAL 10/05/18 09:00 11/04/18 08:59 Temazepam (Restoril) 15 mg HSPRN PRN ORAL Insomnia 10/04/18 13:00 10/11/18 12:59 Ziprasidone (Geodon) 20 mg TWICE A DAY ORAL 10/04/18 18:00 11/03/18 17:59 GI: Plan Problems: (1) UGI bleed (2) Abdominal pain (3) Failure to thrive (4) Weak Plan EGD scheduled tomorrow. - NPO @ SD. - hold all blood thinners prn transfusions ppi will follow with additional recs post procedure. fu labs needs outpatient colonoscopy Discussed with Dr. Valdez. Thank you for this patient referral, we will follow. The patient was seen and examined at bedside and all new and available data was reviewed in the patients chart. I agree with the above findings, impression and plan. (Patient seen earlier today. Signature stamp does not reflect patient encounter time.). - MD Ada MurphyCaromont [facility] Centeroi NURSE HEALTHCARE MANAGER Oct 04, 2018 15:49
[2018-10-04 16:00] VITALS: BP 139/75
--- NOTE | 2018-10-04 16:01 | Diagnostic Imaging Report ---
Indication:Abdominal pain Technique: Grayscale and duplex Doppler imaging of the abdomen performed. Comparison: None Findings: The liver is unremarkable. Shadowing focus calcification noted in the dome of the liver. The gallbladder stone demonstrated. Sonographic Bonilla's sign is negative per technologist. CBD measures approximately 7 mm. The demonstrated part of the pancreas, aorta and IVC show no abnormalities. Both kidneys appear unremarkable. The spleen is normal in size. There is no biliary ductal dilatation identified. Doppler evaluation of the main portal vein shows patency. There is no ascites. No hydronephrosis seen. Impression: Cholelithiasis. Liver calcification. Left renal cyst
[2018-10-04] MEDS: Ziprasidone 20mg cap ORAL SCH (17:10)
[2018-10-04] MEDS: NovoLOG Insulin Flexpen SUBQ SCH ×2 (17:15→20:29)
[2018-10-04 20:00] VITALS: BP 124/62
[2018-10-04] MEDS: Tamsulosin 0.4mg cap ORAL SCH (20:27)
[2018-10-04] MEDS: Depakote ER 500mg tab ORAL SCH (20:27)
--- NOTE | 2018-10-04 21:00 | History and Physical Report ---
DATE OF ADMISSION: 10/04/2018 TIME SEEN: On 10/04/2018 at 1 p.m. CONSULTANTS: 1. Ivone Mojica M.D. 2. Goran Valdez M.D. 3. Shiraz Angel M.D. CHIEF COMPLAINT: Abdominal pain and GI bleed. BRIEF HISTORY: This is a 68-year-old male from [place], who presents with abdominal pain and vomiting blood. He came to [facility], diagnosed with GI bleed, admitted to medical floor for further treatment. Currently, calm in bed, slightly confused, no complaint. REVIEW OF SYSTEMS: No chest pain. No shortness of breath. Slight nausea. Slight vomiting. No diarrhea. PAST MEDICAL HISTORY: Diabetes, schizoaffective disorder, COPD, weakness, Parkinson's, failure to thrive. PAST SURGICAL HISTORY: Left arm. ALLERGIES: Denies. MEDICATIONS: Include Norvasc, Proscar, Cozaar, Januvia, Seroquel, Geodon, NovoLog, morphine, temazepam, and diphenhydramine. SOCIAL HISTORY: No smoking. No alcohol. No intravenous drug abuse. FAMILY HISTORY: Noncontributory. PHYSICAL EXAMINATION: GENERAL: Calm in bed, oriented x2, in no acute distress. VITAL SIGNS: Temperature is 98 degrees, pulse 75, respirations 17, blood pressure 147/57. CARDIOVASCULAR: No murmur. LUNGS: Distant and clear. ABDOMEN: Bowel sounds positive. Nontender. Nondistended. EXTREMITIES: No cyanosis or edema. NEUROLOGIC: The patient moves all extremities, slightly weak. LABORATORY AND DIAGNOSTIC DATA: Labs at this time show CBC is normal. BMP shows BUN 21, glucose 189, AST 202, ALT 465, alkaline phosphatase 159. Troponin 0.003. INR is 1.0, PTT is 25. Urinalysis, 1+ blood, 3+ ketone, otherwise normal. ASSESSMENT: GI bleed, abdominal pain, hypertension, diabetes, COPD, weakness, Parkinson's, schizoaffective, and failure to thrive. PLAN: NPO. IV fluid. OT, PT, dietary evaluation. Resume home medications. CBC and BMP in the morning. Blood pressure and blood sugar control. Sharif Sanabria D.O. DR: [place] JOB#: [id number] CC:
[2018-10-05] VITALS (13 sets, daily range): BP systolic 125–152; BP diastolic 58–80
[2018-10-05] MEDS: D5 1/2NS 1,000 ML IV SCH ×2 (05:51→15:44)
[2018-10-05] MEDS: NovoLOG Insulin Flexpen SUBQ SCH ×4 (05:53→20:24)
[2018-10-05 06:41] LABS: BASOPHILS % (AUTO) 0.7 % (0.0-2.0); EOSINOPHILS % (AUTO) 0.6 % (0.0-3.0); HEMATOCRIT 38.3 % (42.0-52.0); HEMOGLOBIN 13.2 G/DL (14.2-18.0); LYMPHOCYTES % (AUTO) 9.9 % (20.0-45.0); MEAN CORPUSCULAR VOLUME 90 FL (80-99); MONOCYTES % (AUTO) 12.1 % (1.0-10.0); NEUTROPHILS % (AUTO) 76.7 % (45.0-75.0); PLATELET COUNT 129 K/UL (150-450); RED BLOOD COUNT 4.27 M/UL (4.70-6.10); RED CELL DISTRIBUTION WIDTH 11.4 % (11.6-14.8); WHITE BLOOD COUNT 7.8 K/UL (4.8-10.8)
[2018-10-05 06:56] LABS: ALANINE AMINOTRANSFERASE 248 U/L (12-78); ALBUMIN 3.1 G/DL (3.4-5.0); ALBUMIN/GLOBULIN RATIO 0.8 (1.0-2.7); ALKALINE PHOSPHATASE 112 U/L (46-116); AMYLASE 45 U/L (25-115); ANION GAP 3 mmol/L (5-15); ASPARTATE AMINO TRANSFERASE 68 U/L (15-37); BILIRUBIN,TOTAL 0.5 MG/DL (0.2-1.0); BLOOD UREA NITROGEN 16 mg/dL (7-18); CALCIUM 8.4 MG/DL (8.5-10.1); CARBON DIOXIDE 29 MMOL/L (21-32); CHLORIDE 108 MMOL/L (98-107); CREATININE 0.9 MG/DL (0.55-1.30); POTASSIUM 4.1 MMOL/L (3.5-5.1); SODIUM 140 MMOL/L (136-145)
[2018-10-05] MEDS: Depakote ER 500mg tab ORAL SCH ×2 (08:50→20:23)
[2018-10-05] MEDS: Losartan 50mg tab ORAL SCH (08:50)
[2018-10-05] MEDS: Ziprasidone 20mg cap ORAL SCH ×2 (08:50→17:42)
--- NOTE | 2018-10-05 10:31 | Pulmonology Progress Note ---
Assessment/Plan Problems: (1) UGI bleed (2) Abdominal pain (3) COPD (chronic obstructive pulmonary disease) (4) CAD (coronary artery disease) (5) Psychiatric disorder (6) Parkinson disease (7) Failure to thrive Assessment/Plan NPO endoscopy scheduled iv fluids check electrolytes symptomatic treatment respiratory treatment Subjective ROS Limited/Unobtainable: No Interval Events: no new complains Constitutional: Reports: no symptoms HEENT: Repors: no symptoms Respiratory: Reports: no symptoms Allergies: Coded Allergies: No Known Allergies (Unverified , 12/26/17) Objective Last 24 Hour Vital Signs Date Time Temp Pulse Resp B/P (MAP) Pulse Ox O2 Delivery O2 Flow Rate FiO2 10/05/18 09:00 Room Air 10/05/18 08:00 97.9 83 18 147/80 (102) 98 10/05/18 04:00 98.4 72 21 131/68 (89) 95 10/05/18 00:00 98.6 75 20 143/70 (94) 98 10/04/18 21:00 Room Air 10/04/18 20:00 98.7 85 19 124/62 (82) 96 10/04/18 16:00 99.7 75 20 139/75 (96) 97 10/04/18 13:11 Room Air 10/04/18 12:20 98.2 75 17 147/57 98 Room Air 10/04/18 12:05 98.2 75 17 147/57 98 Room Air Intake and Output 10/04/18 10/05/18 19:00 07:00 Intake Total 900 ml Output Total 0 ml Balance 0 ml 900 ml Intake IV Total 900 ml Output Urine Total 0 ml General Appearance: WD/WN HEENT: normocephalic, atraumatic Respiratory/Chest: chest wall non-tender, lungs clear Abdomen: normal bowel sounds, no organomegaly Extremities: no cyanosis Skin: no lesions, no ulcers Microbiology Date/Time Source Procedure Growth Status 10/04/18 10:52 Rectum - Preliminary Resulted 10/04/18 10:52 Rectum Received Laboratory Tests 10/04/18 10:50: Urine Color Pale yellow, Urine Appearance Clear, Urine pH 9, Urine Specific [place] 1.015, Urine Protein 2+H, Urine Glucose (UA) 1+H, Urine Ketones 3+H, Urine Blood 1+H, Urine Nitrite Negative, Urine Bilirubin Negative, Urine Urobilinogen Normal, Urine Leukocyte Esterase Negative, Urine RBC 2-4H, Urine WBC 0-2, Urine Squamous Epithelial Cells Occasional, Urine Amorphous Sediment FewH, Urine Bacteria Occasional 10/05/18 05:55: White Blood Count 7.8, Red Blood Count 4.27L, Hemoglobin 13.2L, Hematocrit 38.3L , Mean Corpuscular Volume 90, Mean Corpuscular Hemoglobin 30.9, Mean Corpuscular Hemoglobin Concent 34.3, Red Cell Distribution Width 11.4L, Platelet Count 129L, Mean Platelet Volume 5.8L, Neutrophils (%) (Auto) 76.7H, Lymphocytes (%) (Auto) 9.9L, Monocytes (%) (Auto) 12.1H, Eosinophils (%) (Auto) 0.6, Basophils (%) (Auto) 0.7, Prothrombin Time 10.1, Prothromb Time International Ratio 1.0, Activated Partial Thromboplast Time 26, Sodium Level 140, Potassium Level 4.1, Chloride Level 108H, Carbon Dioxide Level 29, Anion Gap 3L, Blood Urea Nitrogen 16, Creatinine 0.9, Estimat Glomerular Filtration Rate > 60, Glucose Level 161H, Calcium Level 8.4L, Total Bilirubin 0.5, Aspartate Amino Transf (AST/SGOT) 68H, Alanine Aminotransferase (ALT/SGPT) 248H , Alkaline Phosphatase 112, Total Protein 6.9, Albumin 3.1L, Globulin 3.8, Albumin/Globulin Ratio 0.8L, Amylase Level 45, Lipase 75, Hepatitis A IgM Antibody [Pending], Hepatitis B Surface Antigen [Pending], Hepatitis B Core IgM Antibody [Pending], Hepatitis C Antibody [Pending] Current Medications Medications (Trade) Dose Ordered Sig/Deon Route PRN Reason Start Time Stop Time Status Last Admin Dose Admin Acetaminophen (Tylenol) 650 mg Q4H PRN ORAL fever 10/04/18 13:00 11/03/18 12:59 Al Hydroxide/Mg Hydroxide (Mylanta II) 30 ml Q6H PRN ORAL dyspepsia 10/04/18 13:00 11/03/18 12:59 Amlodipine Besylate (Norvasc) 5 mg DAILY ORAL 10/05/18 09:00 11/04/18 08:59 Dextrose (Dextrose 50%) 25 ml Q30M PRN IV Hypoglycemia 10/04/18 13:15 11/03/18 13:06 Dextrose (Dextrose 50%) 50 ml Q30M PRN IV hypoglycemia 10/04/18 13:15 11/03/18 13:14 Dextrose/Sodium Chloride 1,000 ml @ 75 mls/hr [id number] IV 10/04/18 13:04 11/03/18 13:03 10/05/18 05:51 Diphenhydramine HCl (Benadryl) 25 mg Q6H PRN ORAL Itching/Pruritis 10/04/18 13:00 11/03/18 12:59 Divalproex Sodium (Depakote ER) 500 mg EVERY 12 HOURS ORAL 10/04/18 21:00 11/03/18 20:59 10/04/18 20:27 Finasteride (Proscar) 5 mg DAILY ORAL 10/05/18 09:00 11/04/18 08:59 Insulin Aspart (NovoLOG) BEFORE MEALS AND HS SUBQ 10/04/18 16:30 11/03/18 16:29 10/05/18 05:53 Losartan Potassium (Cozaar) 50 mg DAILY ORAL 10/05/18 09:00 11/04/18 08:59 Morphine Sulfate (Morphine Sulfate) 2 mg Q4H PRN IVP severe Pain (Pain Scale 7-10) 10/04/18 13:00 10/11/18 12:59 Nitroglycerin (Ntg) 0.4 mg Q5M X 3 DOSES PRN SL Prn Chest Pain 10/04/18 13:00 11/03/18 12:59 Ondansetron HCl (Zofran) 4 mg Q6H PRN IVP Nausea & Vomiting 10/04/18 13:00 11/03/18 12:59 Polyethylene Glycol (Miralax) 17 gm HSPRN PRN ORAL Constipation 10/04/18 13:00 11/03/18 12:59 Quetiapine Fumarate (SEROquel) 50 mg BID ORAL 10/04/18 18:00 11/03/18 17:59 10/04/18 17:11 Sitagliptin Phosphate (Januvia) 100 mg DAILY ORAL 10/05/18 09:00 11/04/18 08:59 Tamsulosin HCl (Flomax) 0.4 mg BEDTIME ORAL 10/04/18 21:00 11/03/18 20:59 10/04/18 20:27 Temazepam (Restoril) 15 mg HSPRN PRN ORAL Insomnia 10/04/18 13:00 10/11/18 12:59 Ziprasidone (Geodon) 20 mg TWICE A DAY ORAL 10/04/18 18:00 11/03/18 17:59 10/04/18 17:10 Ivone Mojica MD Oct 05, 2018 10:31
[2018-10-05] MEDS ORDERED: NS 500ML IVPB ONE (12:05)
--- NOTE | 2018-10-05 12:10 | Pre-Procedure Note/Attestation ---
Pre-Procedure Note/Attestation Complete Prior to Procedure Planned Procedure: not applicable Procedure Narrative: egd Indications for Procedure Pre-Operative Diagnosis: gib Attestation I attest that I discussed the nature of the procedure; its benefits; risks and complications; and alternatives (and the risks and benefits of such alternatives ), prior to the procedure, with the patient (or the patient's legal employer relations representative). I attest that, if there was a reasonable possibility of needing a blood transfusion, the patient (or the patient's legal employer relations representative) was given the [facility] standardized written summary, pursuant to the Maximilian Liz Blood Safety Act ([place] Health and Safety Code # 1645, as amended). I attest that I re-evaluated the patient just prior to the surgery and that there has been no change in the patient's H&P, except as documented below: Goran Valdez MD Oct 05, 2018 12:10
[2018-10-05] MEDS ORDERED: Midazolam 2mg/2ml Inj ONE (12:23)
--- NOTE | 2018-10-05 12:29 | Endoscopy Procedure Note ---
Endoscopy Procedure Note General Indication for Procedure: gib Procedures Performed: EGD Operative Findings/Diagnosis: gastritis Specimen: yes Pt Tolerated Procedure Well: Yes Estimated Blood Loss: none Anesthesia Anesthesiologist: brannon Anesthesia: MAC Inserted Devices Implant(s) used?: No GI Core Measures 50 yrs or older w/o bx or poly: Not Applicable 10yrs. F/U not recommended: Not Applicable Goran Valdez MD Oct 05, 2018 12:29
--- NOTE | 2018-10-05 12:43 | General Progress Note ---
Assessment/Plan Problem List: (1) HTN (hypertension) ICD Codes: I10 - Essential (primary) hypertension SNOMED: 34921314 (2) Diabetes ICD Codes: E11.9 - Type 2 diabetes mellitus without complications SNOMED: 46483126 (3) COPD (chronic obstructive pulmonary disease) ICD Codes: J44.9 - Chronic obstructive pulmonary disease, unspecified SNOMED: 34128478 (4) Psychiatric disorder ICD Codes: F99 - Mental disorder, not otherwise specified SNOMED: 26379849, 553335063 (5) Parkinson disease ICD Codes: G20 - Parkinson's disease SNOMED: 89287216 (6) UGI bleed ICD Codes: K92.2 - Gastrointestinal hemorrhage, unspecified SNOMED: 35536010 (7) Weak ICD Codes: R53.1 - Weakness SNOMED: 87097143 (8) Abdominal pain ICD Codes: R10.9 - Unspecified abdominal pain SNOMED: 65159266 Status: unchanged Assessment/Plan ot pt diet gi f/u cbc bmp am Subjective Constitutional: Reports: weakness Allergies: Coded Allergies: No Known Allergies (Unverified , 12/26/17) All Systems: reviewed and negative except above Subjective calm in bed awating egd Objective Last 24 Hour Vital Signs Date Time Temp Pulse Resp B/P (MAP) Pulse Ox O2 Delivery O2 Flow Rate FiO2 10/05/18 09:00 Room Air 10/05/18 08:00 97.9 83 18 147/80 (102) 98 10/05/18 04:00 98.4 72 21 131/68 (89) 95 10/05/18 00:00 98.6 75 20 143/70 (94) 98 10/04/18 21:00 Room Air 10/04/18 20:00 98.7 85 19 124/62 (82) 96 10/04/18 16:00 99.7 75 20 139/75 (96) 97 10/04/18 13:11 Room Air Intake and Output 10/04/18 10/05/18 19:00 07:00 Intake Total 900 ml Output Total 0 ml Balance 0 ml 900 ml Intake IV Total 900 ml Output Urine Total 0 ml Laboratory Tests 10/05/18 05:55: White Blood Count 7.8, Red Blood Count 4.27L, Hemoglobin 13.2L, Hematocrit 38.3L , Mean Corpuscular Volume 90, Mean Corpuscular Hemoglobin 30.9, Mean Corpuscular Hemoglobin Concent 34.3, Red Cell Distribution Width 11.4L, Platelet Count 129L, Mean Platelet Volume 5.8L, Neutrophils (%) (Auto) 76.7H, Lymphocytes (%) (Auto) 9.9L, Monocytes (%) (Auto) 12.1H, Eosinophils (%) (Auto) 0.6, Basophils (%) (Auto) 0.7, Prothrombin Time 10.1, Prothromb Time International Ratio 1.0, Activated Partial Thromboplast Time 26, Sodium Level 140, Potassium Level 4.1, Chloride Level 108H, Carbon Dioxide Level 29, Anion Gap 3L, Blood Urea Nitrogen 16, Creatinine 0.9, Estimat Glomerular Filtration Rate > 60, Glucose Level 161H, Calcium Level 8.4L, Total Bilirubin 0.5, Aspartate Amino Transf (AST/SGOT) 68H, Alanine Aminotransferase (ALT/SGPT) 248H , Alkaline Phosphatase 112, Total Protein 6.9, Albumin 3.1L, Globulin 3.8, Albumin/Globulin Ratio 0.8L, Amylase Level 45, Lipase 75, Hepatitis A IgM Antibody [Pending], Hepatitis B Surface Antigen [Pending], Hepatitis B Core IgM Antibody [Pending], Hepatitis C Antibody [Pending] Height (Feet): 6 Height (Inches): 2.00 Weight (Pounds): 192 General Appearance: lethargic EENT: normal ENT inspection Neck: normal alignment Cardiovascular: normal peripheral pulses, normal rate, regular rhythm Respiratory/Chest: chest wall non-tender, lungs clear, normal breath sounds Abdomen: normal bowel sounds, non tender, soft Extremities: normal inspection Edema: no edema noted Arm (L), no edema noted Arm (R), no edema noted Leg (L), no edema noted Leg (R), no edema noted Pedal (L), no edema noted Pedal (R), no edema noted Generalized Neurologic: motor weakness Skin: normal pigmentation, warm/dry Sharif Sanabria DO Oct 05, 2018 12:43
--- NOTE | 2018-10-05 12:52 | Anethesia Preoperative Eval ---
Anesthesia Pre-op PMH/ROS General Date of Evaluation: Oct 05, 2018 Time of Evaluation: 12:14 Anesthesiologist: Whitney ASA Score: ASA 3 Mallampati Score Class I : Soft palate, uvula, fauces, pillars visible Class II: Soft palate, uvula, fauces visible Class III: Soft palate, base of uvula visible Class IV: Only hard plate visible Mallampati Classification: Class II Surgeon: José Miguel Diagnosis: Abdominal pain Surgical Procedure: EGD Anesthesia History: none Family History: no anesthesia problems Allergies: Coded Allergies: No Known Allergies (Unverified , 12/26/17) Patient NPO?: Yes Past Medical History Cardiovascular: Reports: HTN; Denies: CAD, NE, valve dz, arrhythmia, other Pulmonary: Reports: COPD; Denies: asthma, MESSI, other Gastrointestinal/Genitourinary: Reports: GERD; Denies: CRI, ESRD, other Neurologic/Psychiatric: Reports: other - Parkinsons, schizophrenia; Denies: dementia, CVA, depression/anxiety, TIA Endocrine: Reports: DM; Denies: hypothyroidism, steroids, other HEENT: Denies: cataract (L), cataract (R), glaucoma, [facility] (L), [facility] (R), other Hematology/Immune: Denies: anemia, DVT, bleeding disorder, other Musculoskeletal/Integumentary: Denies: OA, RA, DJD, DDD, edema, other PMH Narrative: as above PSxH Narrative: See H&P Anesthesia Pre-op Phys. Exam Physician Exam Last Vital Signs Date Time Temp Pulse Resp B/P (MAP) Pulse Ox O2 Delivery O2 Flow Rate FiO2 10/05/18 09:00 Room Air 10/05/18 08:00 97.9 83 18 147/80 (102) 98 Constitutional: NAD Neurologic: other - unable to obtaine Cardiovascular: RRR, no M/R/G Respiratory: CTA Gastrointestinal: S/NT/ND Airway Exam Mallampati Score: Class II MO: limited Neck: stiff ROM: limited Teeth: missing Dentures: no upper, no lower Anesthesia Pre-op A/P Labs Hematology Test 10/05/18 05:55 White Blood Count 7.8 K/UL (4.8-10.8) Red Blood Count 4.27 M/UL (4.70-6.10) L Hemoglobin 13.2 G/DL (14.2-18.0) L Hematocrit 38.3 % (42.0-52.0) L Mean Corpuscular Volume 90 FL (80-99) Mean Corpuscular Hemoglobin 30.9 PG (27.0-31.0) Mean Corpuscular Hemoglobin Concent 34.3 G/DL (32.0-36.0) Red Cell Distribution Width 11.4 % (11.6-14.8) L Platelet Count 129 K/UL (150-450) L Mean Platelet Volume 5.8 FL (6.5-10.1) L Neutrophils (%) (Auto) 76.7 % (45.0-75.0) H Lymphocytes (%) (Auto) 9.9 % (20.0-45.0) L Monocytes (%) (Auto) 12.1 % (1.0-10.0) H Eosinophils (%) (Auto) 0.6 % (0.0-3.0) Basophils (%) (Auto) 0.7 % (0.0-2.0) Coagulation Test 10/05/18 05:55 Prothrombin Time 10.1 SEC (9.30-11.50) Prothromb Time International Ratio 1.0 (0.9-1.1) Activated Partial Thromboplast Time 26 SEC (23-33) Chemistry Test 10/05/18 05:55 Sodium Level 140 MMOL/L (136-145) Potassium Level 4.1 MMOL/L (3.5-5.1) Chloride Level 108 MMOL/L (98-107) H Carbon Dioxide Level 29 MMOL/L (21-32) Anion Gap 3 mmol/L (5-15) L Blood Urea Nitrogen 16 mg/dL (7-18) Creatinine 0.9 MG/DL (0.55-1.30) Estimat Glomerular Filtration Rate > 60 mL/min (>60) Glucose Level 161 MG/DL (74-106) H Calcium Level 8.4 MG/DL (8.5-10.1) L Total Bilirubin 0.5 MG/DL (0.2-1.0) Aspartate Amino Transf (AST/SGOT) 68 U/L (15-37) H Alanine Aminotransferase (ALT/SGPT) 248 U/L (12-78) H Alkaline Phosphatase 112 U/L (46-116) Total Protein 6.9 G/DL (6.4-8.2) Albumin 3.1 G/DL (3.4-5.0) L Globulin 3.8 g/dL Albumin/Globulin Ratio 0.8 (1.0-2.7) L Amylase Level 45 U/L (25-115) Lipase 75 U/L (73-393) Risk Assessment & Plan Assessment: ASA 3 Plan: MAC Status Change Before Surgery: No Pre-Antibiotics Drug: none Bipin Olson MD Oct 05, 2018 12:52
--- NOTE | 2018-10-05 12:54 | Immediate Post-Op Evaluation ---
Immediate Post-Op Evalulation Immediate Post-Op Evalulation Procedure: EGD with Bx Date of Evaluation: Oct 05, 2018 Time of Evaluation: 12:53 IV Fluids: 200 Blood Products: none Estimated Blood Loss: none Urinary Output: none Blood Pressure Systolic: 140 Blood Pressure Diastolic: 79 Pulse Rate: 76 Respiratory Rate: 20 O2 Sat by Pulse Oximetry: 99 Temperature (Fahrenheit): 98.8 Pain Score (1-10): 1 Nausea: No Vomiting: No Complications none Patient Status: awake, patent, none Hydration Status: adequate Bipin Olson MD Oct 05, 2018 12:53
--- NOTE | 2018-10-05 13:52 | 48 Hour Post Anesthesia Eval ---
Post Anesthesia Evaluation Procedure: EGD with Bx Date of Evaluation: Oct 05, 2018 Time of Evaluation: 13:51 Blood Pressure Systolic: 143 0: 68 Pulse Rate: 74 Respiratory Rate: 20 Temperature (Fahrenheit): 97.6 O2 Sat by Pulse Oximetry: 98 Airway: patent Nausea: No Vomiting: No Pain Intensity: 1 Hydration Status: adequate Cardiopulmonary Status: stable Mental Status/LOC: patient returned to baseline Follow-up Care/Observations: n/a Post-Anesthesia Complications: none Follow-up care needed: N/A Bipin Olson MD Oct 05, 2018 13:52
[2018-10-05] MEDS ORDERED: Morphine Sulfate 2mg/ml Inj IVP SCH (14:00)
[2018-10-05] MEDS ORDERED: D5 1/2NS 1000ml IV ONE (14:10)
--- NOTE | 2018-10-05 15:29 | Consultation ---
History of Present Illness General Date patient seen: Oct 05, 2018 Chief Complaint: Abdominal Pain Referring physician: NINA VINSON Reason for Consultation: Abdominal pain / cholecystitis Present Illness HPI 68 year old male with multiple medical comorbidities presented to ED with complaints of worsening abdominal pain. States 2-3 days ago began to experience upper abdominal discomfort which progressively worsened. Pain associated with nausea and multiple bouts of emesis. Was admitted for care and management. Noted to have elevated LFT's and US with cholelithiasis. concerns for acute cholecystitis. surgery asked to evaluate and assist with care and management. patient seen, chart reviewed, patient examined. states pain resolving now. currently no n/v/f/c. Allergies: Coded Allergies: No Known Allergies (Unverified , 12/26/17) Medication History Scheduled Amlodipine Besylate* (Amlodipine Besylate*), 5 MG ORAL DAILY, (Reported) Divalproex Sodium* (Depakote Er*), 500 MG ORAL EVERY 12 HOURS, (Reported) Finasteride* (Proscar*), 5 MG ORAL DAILY, (Reported) Losartan Potassium* (Losartan Potassium*), 50 MG ORAL DAILY, (Reported) Quetiapine Fumarate* (Quetiapine Fumarate*), 50 MG ORAL BID, (Reported) Sitagliptin* (Januvia*), 100 MG ORAL DAILY, (Reported) Tamsulosin Hcl (Tamsulosin Hcl*), 0.4 MG ORAL BEDTIME, (Reported) Ziprasidone Hcl* (Geodon*), 20 MG ORAL TWICE A DAY, (Reported) Scheduled PRN Al Hydroxide/mg Hydroxide (Mag-Al Liquid), 30 ML ORAL Q6HR PRN for INDIGESTION, (Reported) Discontinued Medications Acetaminophen* (Acetaminophen 325MG Tablet*), 650 MG ORAL Q4H PRN for Mild Pain/ Temp > 100.5, (Reported) Discontinued Reason: Therapy completed Ascorbic Acid* (Ascorbic Acid*), 500 MG ORAL DAILY, (Reported) Discontinued Reason: Therapy completed Aspirin* (Aspirin*), 325 MG ORAL DAILY, (Reported) Discontinued Reason: Therapy completed Docusate Sodium* (Colace*), 250 MG ORAL BEDTIME, (Reported) Discontinued Reason: Therapy completed Escitalopram Oxalate (Escitalopram Oxalate*), 20 MG ORAL DAILY, (Reported) Discontinued Reason: Therapy completed Insulin Aspart (Novolog), AC+HS, (Reported) Discontinued Reason: Therapy completed Levetiracetam (Levetiracetam), 750 MG ORAL BID, (Reported) Discontinued Reason: Therapy completed [place] Carbonate* ([place]*), 300 MG ORAL EVERY 8 HOURS, (Reported) Discontinued Reason: Therapy completed Lorazepam* (Ativan*), 1 MG ORAL BID PRN for For Anxiety, (Reported) Discontinued Reason: Therapy completed Metformin Hcl* (Metformin Hcl*), 500 MG ORAL TWICE A DAY, (Reported) Discontinued Reason: Therapy completed Omeprazole (Omeprazole), 40 MG ORAL DAILY, (Reported) Discontinued Reason: Therapy completed Polyethylene Glycol 3350* (Miralax*), 17 GM ORAL HS PRN for Constipation, ( Reported) Discontinued Reason: Therapy completed Propranolol Hcl* (Inderal*), 10 MG ORAL THREE TIMES A DAY, (Reported) Discontinued Reason: Therapy completed Quetiapine Fumarate* (Quetiapine Fumarate*), 50 MG ORAL BID, (Reported) Discontinued Reason: Therapy completed Sennosides (Senna), 8.6 MG PO BEDTIME, (Reported) Discontinued Reason: Therapy completed Sitagliptin (Januvia), 100 MG ORAL DAILY, (Reported) Discontinued Reason: Therapy completed Zolpidem Tartrate* (Ambien*), 5 MG ORAL BEDTIME PRN for Insomnia, (Reported) Discontinued Reason: Therapy completed Patient History History Provided By: Patient, Medical Record, PMD Healthcare decision maker Resuscitation status Full Code Advanced Directive on File Past Medical/Surgical History Past Medical/Surgical History: (1) Abnormal laboratory test result (2) Pancytopenia (3) COPD (chronic obstructive pulmonary disease) (4) CAD (coronary artery disease) (5) Psychiatric disorder (6) Parkinson disease (7) Failure to thrive (8) Abdominal pain (9) UGI bleed (10) Weak (11) Diabetes (12) HTN (hypertension) Review of Systems All Other Systems: negative except mentioned in HPI Physical Exam General Appearance: no apparent distress, alert Lines, tubes and drains: peripheral HEENT: normocephalic, atraumatic, anicteric, mucous membranes moist Neck: normal inspection Respiratory/Chest: normal breath sounds, no respiratory distress, no accessory muscle use Cardiovascular/Chest: normal rate, regular rhythm Abdomen: normal bowel sounds, non tender, soft, no organomegaly, no mass Extremities: non-tender, normal inspection Skin Exam: warm/dry Neurologic: alert, oriented x 3 Last 24 Hour Vital Signs Date Time Temp Pulse Resp B/P (MAP) Pulse Ox O2 Delivery O2 Flow Rate FiO2 10/05/18 14:10 101.5 10/05/18 13:52 74 20 98 10/05/18 13:30 100.1 80 20 151/79 98 Room Air 10/05/18 13:25 79 20 152/75 99 Room Air 10/05/18 13:10 78 20 149/78 100 Nasal Cannula 1 10/05/18 12:55 77 20 138/80 100 Nasal Cannula 3 10/05/18 12:53 76 20 99 10/05/18 12:50 78 20 140/79 100 Nasal Cannula 3 10/05/18 12:45 99.4 79 20 138/80 99 Nasal Cannula 3 10/05/18 12:00 98.6 75 20 143/70 (94) 98 10/05/18 09:00 Room Air 10/05/18 08:00 97.9 83 18 147/80 (102) 98 10/05/18 04:00 98.4 72 21 131/68 (89) 95 10/05/18 00:00 98.6 75 20 143/70 (94) 98 10/04/18 21:00 Room Air 10/04/18 20:00 98.7 85 19 124/62 (82) 96 10/04/18 16:00 99.7 75 20 139/75 (96) 97 Intake and Output 10/04/18 10/05/18 19:00 07:00 Intake Total 900 ml Output Total 0 ml Balance 0 ml 900 ml Intake IV Total 900 ml Output Urine Total 0 ml Laboratory Tests Test 10/05/18 05:55 White Blood Count 7.8 K/UL (4.8-10.8) Red Blood Count 4.27 M/UL (4.70-6.10) L Hemoglobin 13.2 G/DL (14.2-18.0) L Hematocrit 38.3 % (42.0-52.0) L Mean Corpuscular Volume 90 FL (80-99) Mean Corpuscular Hemoglobin 30.9 PG (27.0-31.0) Mean Corpuscular Hemoglobin Concent 34.3 G/DL (32.0-36.0) Red Cell Distribution Width 11.4 % (11.6-14.8) L Platelet Count 129 K/UL (150-450) L Mean Platelet Volume 5.8 FL (6.5-10.1) L Neutrophils (%) (Auto) 76.7 % (45.0-75.0) H Lymphocytes (%) (Auto) 9.9 % (20.0-45.0) L Monocytes (%) (Auto) 12.1 % (1.0-10.0) H Eosinophils (%) (Auto) 0.6 % (0.0-3.0) Basophils (%) (Auto) 0.7 % (0.0-2.0) Prothrombin Time 10.1 SEC (9.30-11.50) Prothromb Time International Ratio 1.0 (0.9-1.1) Activated Partial Thromboplast Time 26 SEC (23-33) Sodium Level 140 MMOL/L (136-145) Potassium Level 4.1 MMOL/L (3.5-5.1) Chloride Level 108 MMOL/L (98-107) H Carbon Dioxide Level 29 MMOL/L (21-32) Anion Gap 3 mmol/L (5-15) L Blood Urea Nitrogen 16 mg/dL (7-18) Creatinine 0.9 MG/DL (0.55-1.30) Estimat Glomerular Filtration Rate > 60 mL/min (>60) Glucose Level 161 MG/DL (74-106) H Calcium Level 8.4 MG/DL (8.5-10.1) L Total Bilirubin 0.5 MG/DL (0.2-1.0) Aspartate Amino Transf (AST/SGOT) 68 U/L (15-37) H Alanine Aminotransferase (ALT/SGPT) 248 U/L (12-78) H Alkaline Phosphatase 112 U/L (46-116) Total Protein 6.9 G/DL (6.4-8.2) Albumin 3.1 G/DL (3.4-5.0) L Globulin 3.8 g/dL Albumin/Globulin Ratio 0.8 (1.0-2.7) L Amylase Level 45 U/L (25-115) Lipase 75 U/L (73-393) Hepatitis A IgM Antibody Pending Hepatitis B Surface Antigen Pending Hepatitis B Core IgM Antibody Pending Hepatitis C Antibody Pending Height (Feet): 6 Height (Inches): 2.00 Weight (Pounds): 192 Medications Current Medications Medications (Trade) Dose Ordered Sig/Deon Route PRN Reason Start Time Stop Time Status Last Admin Dose Admin Acetaminophen (Tylenol) 650 mg Q4H PRN ORAL fever 10/04/18 13:00 11/03/18 12:59 10/05/18 13:15 Al Hydroxide/Mg Hydroxide (Mylanta II) 30 ml Q6H PRN ORAL dyspepsia 10/04/18 13:00 11/03/18 12:59 Amlodipine Besylate (Norvasc) 5 mg DAILY ORAL 10/05/18 09:00 11/04/18 08:59 Dextrose (Dextrose 50%) 25 ml Q30M PRN IV Hypoglycemia 10/04/18 13:15 11/03/18 13:06 Dextrose (Dextrose 50%) 50 ml Q30M PRN IV hypoglycemia 10/04/18 13:15 11/03/18 13:14 Dextrose/Sodium Chloride 1,000 ml @ 75 mls/hr [id number] IV 10/04/18 13:04 11/03/18 13:03 10/05/18 05:51 Diphenhydramine HCl (Benadryl) 25 mg Q6H PRN ORAL Itching/Pruritis 10/04/18 13:00 11/03/18 12:59 Divalproex Sodium (Depakote ER) 500 mg EVERY 12 HOURS ORAL 10/04/18 21:00 11/03/18 20:59 10/04/18 20:27 Finasteride (Proscar) 5 mg DAILY ORAL 10/05/18 09:00 11/04/18 08:59 Insulin Aspart (NovoLOG) BEFORE MEALS AND HS SUBQ 10/04/18 16:30 11/03/18 16:29 10/05/18 05:53 Losartan Potassium (Cozaar) 50 mg DAILY ORAL 10/05/18 09:00 11/04/18 08:59 Morphine Sulfate (Morphine Sulfate) 2 mg ONCE PRN IVP prior to HIDA 10/06/18 09:00 10/06/18 18:00 Morphine Sulfate (Morphine Sulfate) 2 mg Q4H PRN IVP severe Pain (Pain Scale 7-10) 10/04/18 13:00 10/11/18 12:59 Nitroglycerin (Ntg) 0.4 mg Q5M X 3 DOSES PRN SL Prn Chest Pain 10/04/18 13:00 11/03/18 12:59 Ondansetron HCl (Zofran) 4 mg Q6H PRN IVP Nausea & Vomiting 10/04/18 13:00 11/03/18 12:59 Polyethylene Glycol (Miralax) 17 gm HSPRN PRN ORAL Constipation 10/04/18 13:00 11/03/18 12:59 Quetiapine Fumarate (SEROquel) 50 mg BID ORAL 10/04/18 18:00 11/03/18 17:59 10/04/18 17:11 Sitagliptin Phosphate (Januvia) 100 mg DAILY ORAL 10/05/18 09:00 11/04/18 08:59 Tamsulosin HCl (Flomax) 0.4 mg BEDTIME ORAL 10/04/18 21:00 11/03/18 20:59 10/04/18 20:27 Temazepam (Restoril) 15 mg HSPRN PRN ORAL Insomnia 10/04/18 13:00 10/11/18 12:59 Ziprasidone (Geodon) 20 mg TWICE A DAY ORAL 10/04/18 18:00 11/03/18 17:59 10/04/18 17:10 Assessment/Plan Problem List: (1) Abdominal pain Assessment & Plan: abdominal pain. generalized but mainly upper and to the right. +N/V since resolving now no leukocytosis. abnormal LFT's US with stones CT reviewed -HIDA ordered to ensure patent cystic duct and functional gallbladder as symptoms are that of acute cholecystitis. -okay for diet if tolerating -trend labs -will follow with recs thank you for this consultation ICD Codes: R10.9 - Unspecified abdominal pain SNOMED: 53398672 Qualifiers: Qualified Codes: R10.84 - Generalized abdominal pain Status: stable Shola Alaniz Oct 05, 2018 15:29
[2018-10-05] MEDS ORDERED: metroNIDAZOLE 500mg tab ORAL SCH (15:45)
[2018-10-05] MEDS ORDERED: cefTRIAXone 1 GM in D5W 55 ML IVPB SCH (15:45)
--- NOTE | 2018-10-05 16:42 | Cardiology Report ---
APPROVED REPORT EKG Measurement Heart [id number] ICl140 Normal sinus rhythm Normal ECG
--- NOTE | 2018-10-05 17:00 | Procedure Note ---
DATE OF PROCEDURE: 10/05/2018 SURGEON: Goran Valdez M.D. ANESTHESIOLOGIST: Dr. Olson. PROCEDURE: Upper endoscopy with biopsy. ANESTHESIA: Per Dr. Olson. INSTRUMENT: Olympus adult flexible upper endoscope. INDICATION: Upper GI bleeding. The procedure, risks, benefits, and possible consequences, including hemorrhage, aspiration, perforation and infection, and alternative treatments, were explained to the patient/legal guardian by Dr. Goran Valdez and the patient/legal guardian understood and accepted these risks. DESCRIPTION OF PROCEDURE: After informed consent was obtained and the patient was adequately sedated, Olympus upper endoscope was advanced from the mouth into the second portion of duodenum and retroflexion was performed in the stomach. The patient had some irregular Z-line without any obvious significant esophageal ulceration. There was evidence of a small hiatal hernia. In the stomach, there was diffuse gastritis. Random biopsies from antrum and body was obtained to rule out H. pylori infection. The rest of upper endoscopic examination grossly looked within normal limits. The patient tolerated the procedure very well without any complication. SUMMARY OF FINDINGS: 1. Irregular Z-line. 2. Small hiatal hernia. 3. Gastritis, status post biopsy. RECOMMENDATIONS: 1. Follow up biopsy results and treat accordingly. 2. The patient will need outpatient colonoscopy. Goran Valdez M.D. DR: Donald JOB#: [id number] CC:
[2018-10-05] MEDS: Piperacillin/Tazobactam 3.375 GM in D5W 110 ML IVPB SCH (17:42)
[2018-10-05] MEDS: Tamsulosin 0.4mg cap ORAL SCH (20:23)
[2018-10-06] VITALS: BP 130/69
[2018-10-06] MEDS: D5 1/2NS 1,000 ML IV SCH ×2 (00:27→17:17)
[2018-10-06 04:00] VITALS: BP 110/53
[2018-10-06] MEDS: Piperacillin/Tazobactam 3.375 GM in D5W 110 ML IVPB SCH ×3 (06:23→21:51)
[2018-10-06] MEDS: NovoLOG Insulin Flexpen SUBQ SCH ×4 (06:31→20:30)
[2018-10-06 06:32] LABS: BASOPHILS % (AUTO) 0.9 % (0.0-2.0); EOSINOPHILS % (AUTO) 0.7 % (0.0-3.0); HEMATOCRIT 35.5 % (42.0-52.0); HEMOGLOBIN 12.6 G/DL (14.2-18.0); INR 0.9 (0.9-1.1); LYMPHOCYTES % (AUTO) 12.4 % (20.0-45.0); MEAN CORPUSCULAR VOLUME 90 FL (80-99); MONOCYTES % (AUTO) 12.2 % (1.0-10.0); NEUTROPHILS % (AUTO) 73.8 % (45.0-75.0); PLATELET COUNT 121 K/UL (150-450); RED BLOOD COUNT 3.96 M/UL (4.70-6.10); RED CELL DISTRIBUTION WIDTH 11.2 % (11.6-14.8); WHITE BLOOD COUNT 8.3 K/UL (4.8-10.8)
[2018-10-06 07:13] LABS: ALANINE AMINOTRANSFERASE 162 U/L (12-78); ALBUMIN 2.7 G/DL (3.4-5.0); ALBUMIN/GLOBULIN RATIO 0.7 (1.0-2.7); ALKALINE PHOSPHATASE 94 U/L (46-116); ANION GAP 8 mmol/L (5-15); ASPARTATE AMINO TRANSFERASE 32 U/L (15-37); BILIRUBIN,TOTAL 0.5 MG/DL (0.2-1.0); BLOOD UREA NITROGEN 13 mg/dL (7-18); CALCIUM 8.5 MG/DL (8.5-10.1); CARBON DIOXIDE 27 MMOL/L (21-32); CHLORIDE 107 MMOL/L (98-107); CREATININE 0.9 MG/DL (0.55-1.30); PHOSPHORUS 2.2 MG/DL (2.5-4.9); POTASSIUM 3.9 MMOL/L (3.5-5.1); SODIUM 142 MMOL/L (136-145)
[2018-10-06 08:00] VITALS: BP 135/63
[2018-10-06] MEDS ORDERED: Morphine Sulfate 2mg/ml Inj IVP PRN (09:00)
[2018-10-06] MEDS: Depakote ER 500mg tab ORAL SCH ×2 (09:00→20:28)
[2018-10-06] MEDS: Losartan 50mg tab ORAL SCH (09:00)
[2018-10-06] MEDS: Ziprasidone 20mg cap ORAL SCH ×2 (09:00→17:16)
[2018-10-06 12:00] VITALS: BP 136/66
--- NOTE | 2018-10-06 12:06 | Diagnostic Imaging Report ---
Indication: Dyspnea Comparison: 10/04/2018 A single view chest radiograph was obtained. Findings: Cardiomediastinal appearance is within normal limits for age. The lungs are clear. Pulmonary vascularity is appropriate. The diaphragmatic contour is smooth and costophrenic angles are sharp. No pleural effusions are identified. Impression: No acute findings. No change
--- NOTE | 2018-10-06 12:16 | Diagnostic Imaging Report ---
Indication: Abdominal Pain COMPARISON: Ultrasound 10/04/2018 Technique: 5.5 mCi of technetium 99 m-Choletec was injected intravenously. Planar imaging of the abdomen was then performed every 5 minutes up to 30 minutes and every 10 minutes up to one hour. Oblique views were also obtained. 2 mg morphine given at 60 minutes. Findings: There is prompt uptake within the liver with good washout of radiotracer from the liver on subsequent imaging. There is excretion into the biliary ducts. There is no gallbladder activity during earlier dynamic imaging nor on the delayed images. Findings consistent with cystic duct obstruction and acute cholecystitis given presence of gallstones on recent ultrasound 10/04/2018. Bowel activity is demonstrated in a timely fashion indicating patency of the common bile duct. Impression: Cystic duct obstruction. Findings consistent with acute cholecystitis
--- NOTE | 2018-10-06 12:31 | GI Progress Note ---
Assessment/Plan Problems: (1) Cholecystitis ICD Codes: K81.9 - Cholecystitis, unspecified SNOMED: 77691505 (2) Abdominal pain ICD Codes: R10.9 - Unspecified abdominal pain SNOMED: 72126122 Qualifiers: Qualified Codes: R10.31 - Right lower quadrant pain (3) Elevated LFTs ICD Codes: R94.5 - Abnormal results of liver function studies SNOMED: 912267526, 813685413 (4) Fever ICD Codes: R50.9 - Fever, unspecified SNOMED: 170158492 (5) Pancytopenia ICD Codes: D61.818 - Other pancytopenia SNOMED: 028677785 (6) Failure to thrive SNOMED: 80731181 Status: stable Status Narrative s/p EGD SUMMARY OF FINDINGS: 1. Irregular Z-line. 2. Small hiatal hernia. 3. Gastritis, status post biopsy. HIDA reviewed >> findings consistent with acute cholecystitis RECOMMENDATIONS: follow up surgical recommendations Follow up biopsy results and treat accordingly. The patient will need outpatient colonoscopy. The patient was seen and examined at bedside and all new and available data was reviewed in the patients chart. I agree with the above findings, impression and plan. (Patient seen earlier today. Signature stamp does not reflect patient encounter time.). - Goran Valdez MD Subjective Gastrointestinal/Abdominal: Reports: abdominal pain Objective Last 24 Hour Vital Signs Date Time Temp Pulse Resp B/P (MAP) Pulse Ox O2 Delivery O2 Flow Rate FiO2 10/06/18 09:56 100.3 10/06/18 09:00 Room Air 10/06/18 08:00 100.3 78 20 135/63 (87) 10/06/18 04:00 99.2 76 18 110/53 (72) 10/06/18 00:00 98.0 79 19 130/69 (89) 98 10/05/18 21:00 Room Air 10/05/18 20:00 97.8 69 18 128/72 (90) 97 10/05/18 18:13 98.8 10/05/18 16:00 100.2 84 18 128/58 (81) 99 10/05/18 14:10 101.5 10/05/18 14:00 101.5 78 18 125/70 (88) 96 10/05/18 13:52 74 20 98 10/05/18 13:30 100.1 80 20 151/79 98 Room Air 10/05/18 13:25 79 20 152/75 99 Room Air 10/05/18 13:10 78 20 149/78 100 Nasal Cannula 1 10/05/18 12:55 77 20 138/80 100 Nasal Cannula 3 10/05/18 12:53 76 20 99 10/05/18 12:50 78 20 140/79 100 Nasal Cannula 3 10/05/18 12:45 99.4 79 20 138/80 99 Nasal Cannula 3 Intake and Output 10/05/18 10/06/18 19:00 07:00 Intake Total 1212.5 ml Output Total 300 ml 800 ml Balance 912.5 ml -800 ml Intake Oral 360 ml IV Total 852.5 ml Output Urine Total 300 ml 800 ml # Voids 1 Laboratory Tests Test 10/06/18 05:30 White Blood Count 8.3 K/UL (4.8-10.8) Red Blood Count 3.96 M/UL (4.70-6.10) L Hemoglobin 12.6 G/DL (14.2-18.0) L Hematocrit 35.5 % (42.0-52.0) L Mean Corpuscular Volume 90 FL (80-99) Mean Corpuscular Hemoglobin 31.8 PG (27.0-31.0) H Mean Corpuscular Hemoglobin Concent 35.4 G/DL (32.0-36.0) Red Cell Distribution Width 11.2 % (11.6-14.8) L Platelet Count 121 K/UL (150-450) L Mean Platelet Volume 6.1 FL (6.5-10.1) L Neutrophils (%) (Auto) 73.8 % (45.0-75.0) Lymphocytes (%) (Auto) 12.4 % (20.0-45.0) L Monocytes (%) (Auto) 12.2 % (1.0-10.0) H Eosinophils (%) (Auto) 0.7 % (0.0-3.0) Basophils (%) (Auto) 0.9 % (0.0-2.0) Prothrombin Time 10.0 SEC (9.30-11.50) Prothromb Time International Ratio 0.9 (0.9-1.1) Activated Partial Thromboplast Time 28 SEC (23-33) Sodium Level 142 MMOL/L (136-145) Potassium Level 3.9 MMOL/L (3.5-5.1) Chloride Level 107 MMOL/L (98-107) Carbon Dioxide Level 27 MMOL/L (21-32) Anion Gap 8 mmol/L (5-15) Blood Urea Nitrogen 13 mg/dL (7-18) Creatinine 0.9 MG/DL (0.55-1.30) Estimat Glomerular Filtration Rate > 60 mL/min (>60) Glucose Level 164 MG/DL (74-106) H Calcium Level 8.5 MG/DL (8.5-10.1) Phosphorus Level 2.2 MG/DL (2.5-4.9) L Magnesium Level 1.9 MG/DL (1.8-2.4) Total Bilirubin 0.5 MG/DL (0.2-1.0) Aspartate Amino Transf (AST/SGOT) 32 U/L (15-37) Alanine Aminotransferase (ALT/SGPT) 162 U/L (12-78) H Alkaline Phosphatase 94 U/L (46-116) Total Protein 6.7 G/DL (6.4-8.2) Albumin 2.7 G/DL (3.4-5.0) L Globulin 4.0 g/dL Albumin/Globulin Ratio 0.7 (1.0-2.7) L Microbiology Date/Time Source Procedure Growth Status 10/05/18 17:30 Urine,Clean Catch Urine Culture - Preliminary NO GROWTH Resulted Height (Feet): 6 Height (Inches): 2.00 Weight (Pounds): 204 General Appearance: WD/WN, no apparent distress, alert Cardiovascular: normal rate Respiratory/Chest: normal breath sounds, no respiratory distress Abdominal Exam: normal bowel sounds, non tender, soft Extremities: normal range of motion, non-tender Luis Caballero SEQUENCING MACHINE OPERATOR Oct 06, 2018 12:31
--- NOTE | 2018-10-06 12:33 | Diagnostic Imaging Report ---
APPROVED REPORT CPT Code: 25705 Present Symptoms Comments: Pain BILATERAL: Imaging reveals a patent deep venous system bilaterally. There is no evidence of thrombus within the femoral, popliteal or tibial segments. The greater saphenous veins are also within normal limits. Doppler indicates normal spontaneous flow within these segments.
--- NOTE | 2018-10-06 13:28 | General Progress Note ---
Assessment/Plan Problem List: (1) HTN (hypertension) ICD Codes: I10 - Essential (primary) hypertension SNOMED: 01403485 (2) Diabetes ICD Codes: E11.9 - Type 2 diabetes mellitus without complications SNOMED: 92529473 (3) COPD (chronic obstructive pulmonary disease) ICD Codes: J44.9 - Chronic obstructive pulmonary disease, unspecified SNOMED: 02743338 (4) Psychiatric disorder ICD Codes: F99 - Mental disorder, not otherwise specified SNOMED: 45741370, 383967696 (5) Parkinson disease ICD Codes: G20 - Parkinson's disease SNOMED: 11110623 (6) UGI bleed ICD Codes: K92.2 - Gastrointestinal hemorrhage, unspecified SNOMED: 46456611 (7) Weak ICD Codes: R53.1 - Weakness SNOMED: 16160451 (8) Abdominal pain ICD Codes: R10.9 - Unspecified abdominal pain SNOMED: 82106230 Qualifiers: Qualified Codes: R10.31 - Right lower quadrant pain Status: stable, progressing Assessment/Plan ot pt diet gi f/u dc if clear Subjective Constitutional: Reports: weakness Allergies: Coded Allergies: No Known Allergies (Unverified , 12/26/17) All Systems: reviewed and negative except above Subjective calm in bed eating Objective Last 24 Hour Vital Signs Date Time Temp Pulse Resp B/P (MAP) Pulse Ox O2 Delivery O2 Flow Rate FiO2 10/06/18 12:00 97.9 72 20 136/66 (89) 10/06/18 09:56 100.3 10/06/18 09:00 Room Air 10/06/18 08:00 100.3 78 20 135/63 (87) 10/06/18 04:00 99.2 76 18 110/53 (72) 10/06/18 00:00 98.0 79 19 130/69 (89) 98 10/05/18 21:00 Room Air 10/05/18 20:00 97.8 69 18 128/72 (90) 97 10/05/18 18:13 98.8 10/05/18 16:00 100.2 84 18 128/58 (81) 99 10/05/18 14:10 101.5 10/05/18 14:00 101.5 78 18 125/70 (88) 96 10/05/18 13:52 74 20 98 10/05/18 13:30 100.1 80 20 151/79 98 Room Air Intake and Output 10/05/18 10/06/18 19:00 07:00 Intake Total 1212.5 ml Output Total 300 ml 800 ml Balance 912.5 ml -800 ml Intake Oral 360 ml IV Total 852.5 ml Output Urine Total 300 ml 800 ml # Voids 1 Laboratory Tests 10/06/18 05:30: White Blood Count 8.3, Red Blood Count 3.96L, Hemoglobin 12.6L, Hematocrit 35.5L , Mean Corpuscular Volume 90, Mean Corpuscular Hemoglobin 31.8H, Mean Corpuscular Hemoglobin Concent 35.4, Red Cell Distribution Width 11.2L, Platelet Count 121L, Mean Platelet Volume 6.1L, Neutrophils (%) (Auto) 73.8, Lymphocytes (%) (Auto) 12.4L, Monocytes (%) (Auto) 12.2H, Eosinophils (%) (Auto ) 0.7, Basophils (%) (Auto) 0.9, Prothrombin Time 10.0, Prothromb Time International Ratio 0.9, Activated Partial Thromboplast Time 28, Sodium Level 142, Potassium Level 3.9, Chloride Level 107, Carbon Dioxide Level 27, Anion Gap 8, Blood Urea Nitrogen 13, Creatinine 0.9, Estimat Glomerular Filtration Rate > 60, Glucose Level 164H, Calcium Level 8.5, Phosphorus Level 2.2L, Magnesium Level 1.9, Total Bilirubin 0.5, Aspartate Amino Transf (AST/SGOT) 32, Alanine Aminotransferase (ALT/SGPT) 162H, Alkaline Phosphatase 94, Total Protein 6.7, Albumin 2.7L, Globulin 4.0, Albumin/Globulin Ratio 0.7L Height (Feet): 6 Height (Inches): 2.00 Weight (Pounds): 204 General Appearance: lethargic EENT: normal ENT inspection Neck: normal alignment Cardiovascular: normal peripheral pulses, normal rate, regular rhythm Respiratory/Chest: chest wall non-tender, lungs clear, normal breath sounds Abdomen: normal bowel sounds, non tender, soft Extremities: normal inspection Edema: no edema noted Arm (L), no edema noted Arm (R), no edema noted Leg (L), no edema noted Leg (R), no edema noted Pedal (L), no edema noted Pedal (R), no edema noted Generalized Neurologic: responsive, motor weakness Skin: normal pigmentation, warm/dry Sharif Sanabria DO Oct 06, 2018 13:28
--- NOTE | 2018-10-06 14:29 | Pulmonology Progress Note ---
Assessment/Plan Problems: (1) UGI bleed (2) Abdominal pain (3) COPD (chronic obstructive pulmonary disease) (4) CAD (coronary artery disease) (5) Psychiatric disorder (6) Parkinson disease (7) Failure to thrive Assessment/Plan no new complains all reviewed iv fluids check electrolytes symptomatic treatment respiratory treatment dc planning Subjective ROS Limited/Unobtainable: No Constitutional: Reports: no symptoms HEENT: Repors: no symptoms Respiratory: Reports: no symptoms Allergies: Coded Allergies: No Known Allergies (Unverified , 12/26/17) Objective Last 24 Hour Vital Signs Date Time Temp Pulse Resp B/P (MAP) Pulse Ox O2 Delivery O2 Flow Rate FiO2 10/06/18 12:00 97.9 72 20 136/66 (89) 10/06/18 09:56 100.3 10/06/18 09:00 Room Air 10/06/18 08:00 100.3 78 20 135/63 (87) 10/06/18 04:00 99.2 76 18 110/53 (72) 10/06/18 00:00 98.0 79 19 130/69 (89) 98 10/05/18 21:00 Room Air 10/05/18 20:00 97.8 69 18 128/72 (90) 97 10/05/18 18:13 98.8 10/05/18 16:00 100.2 84 18 128/58 (81) 99 Intake and Output 10/05/18 10/06/18 19:00 07:00 Intake Total 1212.5 ml Output Total 300 ml 800 ml Balance 912.5 ml -800 ml Intake Oral 360 ml IV Total 852.5 ml Output Urine Total 300 ml 800 ml # Voids 1 General Appearance: WD/WN HEENT: normocephalic, atraumatic Respiratory/Chest: chest wall non-tender, lungs clear Cardiovascular: normal peripheral pulses, normal rate Abdomen: normal bowel sounds, soft, non tender Genitourinary: normal external genitalia Extremities: no clubbing 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 Complete 10/05/18 17:30 Urine,Clean Catch Urine Culture - Preliminary NO GROWTH Resulted 10/04/18 10:52 Rectum - Final NO CARBAPENEM-RESISTANT ENTEROBACTERI... Complete 10/04/18 10:52 Rectum VRE Culture - Final NO VANCOMYCIN RESISTANT ENTEROCOCCUS ... Complete Laboratory Tests 10/06/18 05:30: White Blood Count 8.3, Red Blood Count 3.96L, Hemoglobin 12.6L, Hematocrit 35.5L , Mean Corpuscular Volume 90, Mean Corpuscular Hemoglobin 31.8H, Mean Corpuscular Hemoglobin Concent 35.4, Red Cell Distribution Width 11.2L, Platelet Count 121L, Mean Platelet Volume 6.1L, Neutrophils (%) (Auto) 73.8, Lymphocytes (%) (Auto) 12.4L, Monocytes (%) (Auto) 12.2H, Eosinophils (%) (Auto ) 0.7, Basophils (%) (Auto) 0.9, Prothrombin Time 10.0, Prothromb Time International Ratio 0.9, Activated Partial Thromboplast Time 28, Sodium Level 142, Potassium Level 3.9, Chloride Level 107, Carbon Dioxide Level 27, Anion Gap 8, Blood Urea Nitrogen 13, Creatinine 0.9, Estimat Glomerular Filtration Rate > 60, Glucose Level 164H, Calcium Level 8.5, Phosphorus Level 2.2L, Magnesium Level 1.9, Total Bilirubin 0.5, Aspartate Amino Transf (AST/SGOT) 32, Alanine Aminotransferase (ALT/SGPT) 162H, Alkaline Phosphatase 94, Total Protein 6.7, Albumin 2.7L, Globulin 4.0, Albumin/Globulin Ratio 0.7L Current Medications Medications (Trade) Dose Ordered Sig/Deon Route PRN Reason Start Time Stop Time Status Last Admin Dose Admin Acetaminophen (Tylenol) 650 mg Q4H PRN ORAL fever 10/04/18 13:00 11/03/18 12:59 10/05/18 13:15 Al Hydroxide/Mg Hydroxide (Mylanta II) 30 ml Q6H PRN ORAL dyspepsia 10/04/18 13:00 11/03/18 12:59 Amlodipine Besylate (Norvasc) 5 mg DAILY ORAL 10/05/18 09:00 11/04/18 08:59 Dextrose (Dextrose 50%) 25 ml Q30M PRN IV Hypoglycemia 10/04/18 13:15 11/03/18 13:06 Dextrose (Dextrose 50%) 50 ml Q30M PRN IV hypoglycemia 10/04/18 13:15 11/03/18 13:14 Dextrose/Sodium Chloride 1,000 ml @ 75 mls/hr [id number] IV 10/04/18 13:04 11/03/18 13:03 10/06/18 00:27 Diphenhydramine HCl (Benadryl) 25 mg Q6H PRN ORAL Itching/Pruritis 10/04/18 13:00 11/03/18 12:59 Divalproex Sodium (Depakote ER) 500 mg EVERY 12 HOURS ORAL 10/04/18 21:00 11/03/18 20:59 10/05/18 20:23 Finasteride (Proscar) 5 mg DAILY ORAL 10/05/18 09:00 11/04/18 08:59 Insulin Aspart (NovoLOG) BEFORE MEALS AND HS SUBQ 10/04/18 16:30 11/03/18 16:29 10/06/18 12:38 Losartan Potassium (Cozaar) 50 mg DAILY ORAL 10/05/18 09:00 11/04/18 08:59 Morphine Sulfate (Morphine Sulfate) 2 mg ONCE PRN IVP prior to HIDA 10/06/18 09:00 10/06/18 18:00 10/06/18 09:26 Morphine Sulfate (Morphine Sulfate) 2 mg Q4H PRN IVP severe Pain (Pain Scale 7-10) 10/04/18 13:00 10/11/18 12:59 Nitroglycerin (Ntg) 0.4 mg Q5M X 3 DOSES PRN SL Prn Chest Pain 10/04/18 13:00 11/03/18 12:59 Ondansetron HCl (Zofran) 4 mg Q6H PRN IVP Nausea & Vomiting 10/04/18 13:00 11/03/18 12:59 Piperacillin Sod/ Tazobactam Sod 3.375 gm/Dextrose 110 ml @ 27.5 mls/hr EVERY 8 HOURS IVPB 10/05/18 17:00 10/10/18 16:59 10/06/18 06:23 Polyethylene Glycol (Miralax) 17 gm HSPRN PRN ORAL Constipation 10/04/18 13:00 11/03/18 12:59 Quetiapine Fumarate (SEROquel) 50 mg BID ORAL 10/04/18 18:00 11/03/18 17:59 10/05/18 17:42 Sitagliptin Phosphate (Januvia) 100 mg DAILY ORAL 10/05/18 09:00 11/04/18 08:59 Tamsulosin HCl (Flomax) 0.4 mg BEDTIME ORAL 10/04/18 21:00 11/03/18 20:59 10/05/18 20:23 Temazepam (Restoril) 15 mg HSPRN PRN ORAL Insomnia 10/04/18 13:00 10/11/18 12:59 Ziprasidone (Geodon) 20 mg TWICE A DAY ORAL 10/04/18 18:00 11/03/18 17:59 10/05/18 17:42 Ivone Mojica MD Oct 06, 2018 14:29
[2018-10-06] MEDS ORDERED: MIRALAX17 GM ORAL (14:30)
[2018-10-06] MEDS ORDERED: D5 1/2NS 1000ml IV ONE (15:38)
[2018-10-06 16:00] VITALS: BP 136/66
--- NOTE | 2018-10-06 16:15 | Consultation ---
Vern Vaughn MD Oct 06, 2018 16:15
--- NOTE | 2018-10-06 17:10 | General Surgery Progress Note ---
General Surgery-Progress Note Subjective Additional Comments doing well. HIDA positive Objective Last 24 Hour Vital Signs Date Time Temp Pulse Resp B/P (MAP) Pulse Ox O2 Delivery O2 Flow Rate FiO2 10/06/18 16:00 98.8 77 20 136/66 (89) 96 10/06/18 12:00 97.9 72 20 136/66 (89) 97 10/06/18 09:56 100.3 10/06/18 09:00 Room Air 10/06/18 08:00 100.3 78 20 135/63 (87) 10/06/18 04:00 99.2 76 18 110/53 (72) 10/06/18 00:00 98.0 79 19 130/69 (89) 98 10/05/18 21:00 Room Air 10/05/18 20:00 97.8 69 18 128/72 (90) 97 10/05/18 18:13 98.8 I&O Intake and Output 10/05/18 10/06/18 19:00 07:00 Intake Total 1212.5 ml Output Total 300 ml 800 ml Balance 912.5 ml -800 ml Intake Oral 360 ml IV Total 852.5 ml Output Urine Total 300 ml 800 ml # Voids 1 Drains: none Cardiovascular: RSR Respiratory: clear Abdomen: soft, flat, non-tender, present bowel sounds Extremities: no cyanosis Laboratory Tests Test 10/06/18 05:30 White Blood Count 8.3 K/UL (4.8-10.8) Red Blood Count 3.96 M/UL (4.70-6.10) L Hemoglobin 12.6 G/DL (14.2-18.0) L Hematocrit 35.5 % (42.0-52.0) L Mean Corpuscular Volume 90 FL (80-99) Mean Corpuscular Hemoglobin 31.8 PG (27.0-31.0) H Mean Corpuscular Hemoglobin Concent 35.4 G/DL (32.0-36.0) Red Cell Distribution Width 11.2 % (11.6-14.8) L Platelet Count 121 K/UL (150-450) L Mean Platelet Volume 6.1 FL (6.5-10.1) L Neutrophils (%) (Auto) 73.8 % (45.0-75.0) Lymphocytes (%) (Auto) 12.4 % (20.0-45.0) L Monocytes (%) (Auto) 12.2 % (1.0-10.0) H Eosinophils (%) (Auto) 0.7 % (0.0-3.0) Basophils (%) (Auto) 0.9 % (0.0-2.0) Prothrombin Time 10.0 SEC (9.30-11.50) Prothromb Time International Ratio 0.9 (0.9-1.1) Activated Partial Thromboplast Time 28 SEC (23-33) Sodium Level 142 MMOL/L (136-145) Potassium Level 3.9 MMOL/L (3.5-5.1) Chloride Level 107 MMOL/L (98-107) Carbon Dioxide Level 27 MMOL/L (21-32) Anion Gap 8 mmol/L (5-15) Blood Urea Nitrogen 13 mg/dL (7-18) Creatinine 0.9 MG/DL (0.55-1.30) Estimat Glomerular Filtration Rate > 60 mL/min (>60) Glucose Level 164 MG/DL (74-106) H Calcium Level 8.5 MG/DL (8.5-10.1) Phosphorus Level 2.2 MG/DL (2.5-4.9) L Magnesium Level 1.9 MG/DL (1.8-2.4) Total Bilirubin 0.5 MG/DL (0.2-1.0) Aspartate Amino Transf (AST/SGOT) 32 U/L (15-37) Alanine Aminotransferase (ALT/SGPT) 162 U/L (12-78) H Alkaline Phosphatase 94 U/L (46-116) Total Protein 6.7 G/DL (6.4-8.2) Albumin 2.7 G/DL (3.4-5.0) L Globulin 4.0 g/dL Albumin/Globulin Ratio 0.7 (1.0-2.7) L Plan Problems: (1) Abdominal pain Assessment & Plan: abdominal pain. generalized but mainly upper and to the right. +N/V since resolving now no leukocytosis. abnormal LFT's US with stones CT reviewed HIDA positive discussed findings with patient. offered lap melissa vs non surgical management. patient expressed that he would prefer surgery after all risks, benefits, and alternatives discussed npo p mn iv fluids iv abx consent OR tomorrow for lap vs open melissa -will follow with recs thank you for this consultation Shola Alaniz Oct 06, 2018 17:10
--- NOTE | 2018-10-06 17:11 | Pre-Procedure Note/Attestation ---
Pre-Procedure Note/Attestation Complete Prior to Procedure Planned Procedure: not applicable Procedure Narrative: laparoscopic cholecystectomy; possible open Indications for Procedure Pre-Operative Diagnosis: acute cholecystitis Attestation I attest that I discussed the nature of the procedure; its benefits; risks and complications; and alternatives (and the risks and benefits of such alternatives ), prior to the procedure, with the patient (or the patient's legal technical support representative). I attest that, if there was a reasonable possibility of needing a blood transfusion, the patient (or the patient's legal technical support representative) was given the [facility] standardized written summary, pursuant to the Maximilian Norton Blood Safety Act ([place] Health and Safety Code # 1645, as amended). I attest that I re-evaluated the patient just prior to the surgery and that there has been no change in the patient's H&P, except as documented below: Shola Alaniz Oct 06, 2018 17:11
--- NOTE | 2018-10-06 17:25 | Consultation ---
Consult Note Consult Note [id number] Vern Vaughn MD Oct 06, 2018 17:25
[2018-10-06 20:00] VITALS: BP 114/50
[2018-10-06] MEDS: Tamsulosin 0.4mg cap ORAL SCH (20:28)
[2018-10-07] VITALS (14 sets, daily range): BP systolic 123–167; BP diastolic 54–92
--- NOTE | 2018-10-07 01:17 | Consultation ---
DATE OF CONSULTATION: 10/06/2018 INFECTIOUS DISEASE CONSULTATION CONSULTING PHYSICIAN: Vern Vaughn M.D. REQUESTING PHYSICIAN: Ivone Mojica M.D. REASON FOR CONSULTATION: Evaluation of the patient for cholecystitis. HISTORY OF PRESENT ILLNESS: The patient is a 68-year-old male, who was transferred from [facility] to this medical center with a chief complaint of abdominal pain and vomiting. The patient's workup included HIDA scan suggestive of cholecystitis. Infectious Disease consultation has been requested for further evaluation of the patient and antibiotic management. PAST MEDICAL HISTORY: 1. Diabetes. 2. Schizoaffective disorder. 3. COPD. 4. Parkinson disease. 5. Failure to thrive. 6. History of left arm surgery. ALLERGIES: No known drug allergies. SOCIAL HISTORY: As mentioned above. No history of alcohol or drug abuse. FAMILY HISTORY: Not contributing. REVIEW OF SYSTEMS: HEENT: No recent change in vision or hearing. PULMONARY: No cough. CARDIOVASCULAR: No chest pain or palpitation. GASTROINTESTINAL/ABDOMEN: As mentioned above, no diarrhea. GENITOURINARY: No dysuria. NEUROLOGIC: No seizure. PHYSICAL EXAMINATION: VITAL SIGNS: Temperature 100.3 degrees, T-max 101 degrees, and blood pressure 136/66. HEENT: No pale conjunctivae. No icterus. NECK: No lymphadenopathy. CHEST: Clear. HEART: S1 and S2. ABDOMEN: Soft. At the time of exam, no tenderness. EXTREMITIES: No cyanosis at this time. NEUROLOGIC: Awake. LABORATORY AND DIAGNOSTIC DATA: Labs, white blood cells 8.3, hemoglobin 12, and platelets 121,000. UA is unremarkable. BUN 13 and creatinine 0.9. AST 32, ALT is 162, and alkaline phosphatase is 94. At the time of admission, the patient had elevated AST, ALT, and alkaline phosphatase. Hepatitis panel unremarkable. HIDA scan suggestive of cystic duct obstruction, suggestive of acute cholecystitis. Ultrasound of the abdomen showed cholelithiasis and calcification. ASSESSMENT: The patient is a 68-year-old male with: 1. Acute cholecystitis. 2. Transaminitis, improving. 3. Fever. 4. Abnormal white blood cells. 5. Rule out probable bacteremia. PLAN: 1. We will continue the patient on IV Zosyn day #2. 2. Monitor CBC. 3. Monitor BMP. 4. Monitor liver function tests. 5. Monitor cultures (blood, urine). 6. Surgical followup for cholecystectomy. 7. GI followup for recent gastritis endoscopy 10/05/2018. Vern Vaughn M.D. DR: LONG JOB#: [id number] CC:
[2018-10-07] MEDS ORDERED: LORazepam 1mg tab ORAL PRN (03:45)
[2018-10-07] MEDS: Piperacillin/Tazobactam 3.375 GM in D5W 110 ML IVPB SCH ×3 (05:59→21:59)
[2018-10-07] MEDS: NovoLOG Insulin Flexpen SUBQ SCH ×4 (06:00→20:53)
[2018-10-07] MEDS: D5 1/2NS 1,000 ML IV SCH ×2 (06:10→23:15)
[2018-10-07 06:30] LABS: BASOPHILS % (AUTO) 0.9 % (0.0-2.0); EOSINOPHILS % (AUTO) 1.3 % (0.0-3.0); HEMATOCRIT 35.7 % (42.0-52.0); HEMOGLOBIN 12.3 G/DL (14.2-18.0); LYMPHOCYTES % (AUTO) 12.3 % (20.0-45.0); MEAN CORPUSCULAR VOLUME 90 FL (80-99); MONOCYTES % (AUTO) 12.3 % (1.0-10.0); NEUTROPHILS % (AUTO) 73.2 % (45.0-75.0); PLATELET COUNT 125 K/UL (150-450); RED BLOOD COUNT 3.95 M/UL (4.70-6.10); RED CELL DISTRIBUTION WIDTH 11.3 % (11.6-14.8)
--- NOTE | 2018-10-07 06:37 | Anethesia Preoperative Eval ---
Anesthesia Pre-op PMH/ROS General Date of Evaluation: Oct 07, 2018 Time of Evaluation: 05:56 Anesthesiologist: Sugar ASA Score: ASA 3 Mallampati Score Class I : Soft palate, uvula, fauces, pillars visible Class II: Soft palate, uvula, fauces visible Class III: Soft palate, base of uvula visible Class IV: Only hard plate visible Mallampati Classification: Class II Surgeon: Katty Diagnosis: Abd Pain Surgical Procedure: Laparoscopic Cholecystectomy Anesthesia History: none Social History: smoking Family History: no anesthesia problems Allergies: Coded Allergies: No Known Allergies (Unverified , 12/26/17) Medications: see eMAR Patient NPO?: Yes Past Medical History Cardiovascular: Reports: HTN Pulmonary: Reports: COPD Gastrointestinal/Genitourinary: Reports: GERD Neurologic/Psychiatric: Reports: other - Seizures, Parkinsons Endocrine: Reports: DM Anesthesia Pre-op Phys. Exam Physician Exam Last Vital Signs Date Time Temp Pulse Resp B/P (MAP) Pulse Ox O2 Delivery O2 Flow Rate FiO2 10/07/18 04:00 97.7 66 19 123/62 (82) 95 10/06/18 21:00 Room Air 10/05/18 13:10 1 Constitutional: NAD Neurologic: CN 2-12 intact Cardiovascular: RRR Respiratory: CTA Gastrointestinal: S/NT/ND Airway Exam Mallampati Score: Class II MO: limited ROM: limited Teeth: missing, intact Anesthesia Pre-op A/P Labs Hematology Test 10/07/18 05:50 White Blood Count Pending Red Blood Count Pending Hemoglobin Pending Hematocrit Pending Mean Corpuscular Volume Pending Mean Corpuscular Hemoglobin Pending Mean Corpuscular Hemoglobin Concent Pending Red Cell Distribution Width Pending Platelet Count Pending Mean Platelet Volume Pending Neutrophils (%) (Auto) Pending Lymphocytes (%) (Auto) Pending Monocytes (%) (Auto) Pending Eosinophils (%) (Auto) Pending Basophils (%) (Auto) Pending Coagulation Test 10/07/18 05:50 Prothrombin Time Pending Prothromb Time International Ratio Pending Activated Partial Thromboplast Time Pending Chemistry Test 10/07/18 05:50 Sodium Level Pending Potassium Level Pending Chloride Level Pending Carbon Dioxide Level Pending Blood Urea Nitrogen Pending Creatinine Pending Estimat Glomerular Filtration Rate Pending Glucose Level Pending Calcium Level Pending Risk Assessment & Plan Assessment: ASA 3 Plan: GA Status Change Before Surgery: No Pre-Antibiotics Drug: Earl Pierce MD Oct 07, 2018 06:37
[2018-10-07 07:02] LABS: ANION GAP 6 mmol/L (5-15); BLOOD UREA NITROGEN 14 mg/dL (7-18); CALCIUM 8.2 MG/DL (8.5-10.1); CARBON DIOXIDE 29 MMOL/L (21-32); CHLORIDE 108 MMOL/L (98-107); CREATININE 1.1 MG/DL (0.55-1.30); POTASSIUM 4.3 MMOL/L (3.5-5.1); SODIUM 143 MMOL/L (136-145)
[2018-10-07] MEDS: Losartan 50mg tab ORAL SCH (09:00)
[2018-10-07] MEDS: Depakote ER 500mg tab ORAL SCH ×2 (09:00→20:42)
[2018-10-07] MEDS: Ziprasidone 20mg cap ORAL SCH ×2 (09:00→17:26)
--- NOTE | 2018-10-07 10:17 | Anethesia Preoperative Eval ---
Anesthesia Pre-op PMH/ROS General Date of Evaluation: Oct 07, 2018 Time of Evaluation: 10:14 Anesthesiologist: Anne-Marie Holbrook CRNA ASA Score: ASA 3 Mallampati Score Class I : Soft palate, uvula, fauces, pillars visible Class II: Soft palate, uvula, fauces visible Class III: Soft palate, base of uvula visible Class IV: Only hard plate visible Mallampati Classification: Class II Surgeon: Fausto Diagnosis: Acute cholecystitis Surgical Procedure: Laparoscopic cholecystectomy Anesthesia History: none Social History: smoking Family History: no anesthesia problems Allergies: Coded Allergies: No Known Allergies (Unverified , 12/26/17) Medications: see eMAR Patient NPO?: Yes NPO Date: Oct 07, 2018 NPO Time: 00:00 Past Medical History Cardiovascular: Reports: HTN, CAD; Denies: NE, valve dz, arrhythmia, other Pulmonary: Reports: COPD; Denies: asthma, MESSI, other Gastrointestinal/Genitourinary: Reports: GERD, other - BPH; Denies: CRI, ESRD Neurologic/Psychiatric: Reports: dementia, other - Schizoaffective disorder, Parkinsons; Denies: CVA, depression/anxiety, TIA Endocrine: Reports: DM; Denies: hypothyroidism, steroids, other HEENT: Reports: cataract (L), cataract (R); Denies: glaucoma, [place] (L), [place] (R), other Hematology/Immune: Reports: anemia, other - Pancytopenia; Denies: DVT, bleeding disorder Musculoskeletal/Integumentary: Denies: OA, RA, DJD, DDD, edema, other PMH Narrative: as above PSxH Narrative: LEFT arm surgery Anesthesia Pre-op Phys. Exam Physician Exam Last Vital Signs Date Time Temp Pulse Resp B/P (MAP) Pulse Ox O2 Delivery O2 Flow Rate FiO2 10/07/18 08:00 97.7 74 19 123/91 (102) 97 10/06/18 21:00 Room Air 10/05/18 13:10 1 Constitutional: NAD, other - Alert & oriented x 3 Neurologic: CN 2-12 intact Cardiovascular: RRR Respiratory: CTA Gastrointestinal: S/NT/ND Airway Exam Mallampati Score: Class II MO: full Neck: FROM TMD: > 3 FB ROM: full Teeth: missing, intact, broken Dentures: no upper, no lower Anesthesia Pre-op A/P Labs Hematology Test 10/07/18 05:50 White Blood Count 7.0 K/UL (4.8-10.8) Red Blood Count 3.95 M/UL (4.70-6.10) L Hemoglobin 12.3 G/DL (14.2-18.0) L Hematocrit 35.7 % (42.0-52.0) L Mean Corpuscular Volume 90 FL (80-99) Mean Corpuscular Hemoglobin 31.1 PG (27.0-31.0) H Mean Corpuscular Hemoglobin Concent 34.4 G/DL (32.0-36.0) Red Cell Distribution Width 11.3 % (11.6-14.8) L Platelet Count 125 K/UL (150-450) L Mean Platelet Volume 6.7 FL (6.5-10.1) Neutrophils (%) (Auto) 73.2 % (45.0-75.0) Lymphocytes (%) (Auto) 12.3 % (20.0-45.0) L Monocytes (%) (Auto) 12.3 % (1.0-10.0) H Eosinophils (%) (Auto) 1.3 % (0.0-3.0) Basophils (%) (Auto) 0.9 % (0.0-2.0) Coagulation Test 10/07/18 05:50 Prothrombin Time 10.1 SEC (9.30-11.50) Prothromb Time International Ratio 1.0 (0.9-1.1) Activated Partial Thromboplast Time 27 SEC (23-33) Chemistry Test 10/07/18 05:50 Sodium Level 143 MMOL/L (136-145) Potassium Level 4.3 MMOL/L (3.5-5.1) Chloride Level 108 MMOL/L (98-107) H Carbon Dioxide Level 29 MMOL/L (21-32) Anion Gap 6 mmol/L (5-15) Blood Urea Nitrogen 14 mg/dL (7-18) Creatinine 1.1 MG/DL (0.55-1.30) Estimat Glomerular Filtration Rate > 60 mL/min (>60) Glucose Level 158 MG/DL (74-106) H Calcium Level 8.2 MG/DL (8.5-10.1) L Accucheck 142 @ 0630 Studies Pre-op Studies: EKG - NS HR 75, CXR - no acute changes Risk Assessment & Plan Assessment: ASA 3, ok to proceed Plan: GETA Status Change Before Surgery: No Pre-Antibiotics Drug: TBA Anne-Marie Holbrook CRNA Oct 07, 2018 10:17
[2018-10-07] MEDS ORDERED: Iothalamate Meglumine 60% 30ML INJ ONE (10:18)
[2018-10-07] MEDS ORDERED: Bupivacaine w/Epi 0.25% 30ml Vial INJ ONE (10:18)
[2018-10-07] MEDS ORDERED: Propofol 200mg/20ml IV ONE (10:22)
[2018-10-07] MEDS ORDERED: fentaNYL 100 mcg/2 mL IV ONE ×2 (10:22→10:31)
[2018-10-07] MEDS ORDERED: Midazolam 2mg/2ml Inj ONE (10:22)
[2018-10-07] MEDS ORDERED: Lidocaine 1% MPF 10mg/ml 5ml ONE (10:23)
[2018-10-07] MEDS ORDERED: ePHEDrine 50mg/ml Inj ONE (10:35)
[2018-10-07] MEDS ORDERED: Succinylcholine 20mg/ml 10ml vial ONE (10:35)
[2018-10-07] MEDS ORDERED: Zemuron 50mg/5ml Inj IV ONE (10:35)
--- NOTE | 2018-10-07 11:09 | GI Progress Note ---
Assessment/Plan Problems: (1) Cholecystitis ICD Codes: K81.9 - Cholecystitis, unspecified SNOMED: 47310788 (2) Abdominal pain ICD Codes: R10.9 - Unspecified abdominal pain SNOMED: 19136751 Qualifiers: Qualified Codes: R10.31 - Right lower quadrant pain (3) Elevated LFTs ICD Codes: R94.5 - Abnormal results of liver function studies SNOMED: 383187362, 035701075 (4) Fever ICD Codes: R50.9 - Fever, unspecified SNOMED: 727673321 (5) Pancytopenia ICD Codes: D61.818 - Other pancytopenia SNOMED: 153822675 (6) Failure to thrive SNOMED: 99977550 Status: unchanged Status Narrative Discussed with Dr. Valdez. Assessment/Plan patient for cholecystectomy today fu surgical recs pain mgmt zofran prn will follow with addition recs post procedure. The patient was seen and examined at bedside and all new and available data was reviewed in the patients chart. I agree with the above findings, impression and plan. (Patient seen earlier today. Signature stamp does not reflect patient encounter time.). - Goran Valdez MD Subjective Gastrointestinal/Abdominal: Reports: abdominal pain Objective Last 24 Hour Vital Signs Date Time Temp Pulse Resp B/P (MAP) Pulse Ox O2 Delivery O2 Flow Rate FiO2 10/07/18 08:00 97.7 74 19 123/91 (102) 97 10/07/18 04:00 97.7 66 19 123/62 (82) 95 10/07/18 00:00 99.1 68 19 129/62 (84) 96 10/06/18 21:00 Room Air 10/06/18 20:00 98.8 75 19 114/50 (71) 96 10/06/18 16:00 98.8 77 20 136/66 (89) 96 10/06/18 12:00 97.9 72 20 136/66 (89) 97 Intake and Output 10/06/18 10/07/18 19:00 07:00 Intake Total 1275 ml Output Total 700 ml 600 ml Balance 575 ml -600 ml Intake Oral 600 ml IV Total 675 ml Output Urine Total 700 ml 600 ml Laboratory Tests Test 10/07/18 05:50 White Blood Count 7.0 K/UL (4.8-10.8) Red Blood Count 3.95 M/UL (4.70-6.10) L Hemoglobin 12.3 G/DL (14.2-18.0) L Hematocrit 35.7 % (42.0-52.0) L Mean Corpuscular Volume 90 FL (80-99) Mean Corpuscular Hemoglobin 31.1 PG (27.0-31.0) H Mean Corpuscular Hemoglobin Concent 34.4 G/DL (32.0-36.0) Red Cell Distribution Width 11.3 % (11.6-14.8) L Platelet Count 125 K/UL (150-450) L Mean Platelet Volume 6.7 FL (6.5-10.1) Neutrophils (%) (Auto) 73.2 % (45.0-75.0) Lymphocytes (%) (Auto) 12.3 % (20.0-45.0) L Monocytes (%) (Auto) 12.3 % (1.0-10.0) H Eosinophils (%) (Auto) 1.3 % (0.0-3.0) Basophils (%) (Auto) 0.9 % (0.0-2.0) Prothrombin Time 10.1 SEC (9.30-11.50) Prothromb Time International Ratio 1.0 (0.9-1.1) Activated Partial Thromboplast Time 27 SEC (23-33) Sodium Level 143 MMOL/L (136-145) Potassium Level 4.3 MMOL/L (3.5-5.1) Chloride Level 108 MMOL/L (98-107) H Carbon Dioxide Level 29 MMOL/L (21-32) Anion Gap 6 mmol/L (5-15) Blood Urea Nitrogen 14 mg/dL (7-18) Creatinine 1.1 MG/DL (0.55-1.30) Estimat Glomerular Filtration Rate > 60 mL/min (>60) Glucose Level 158 MG/DL (74-106) H Calcium Level 8.2 MG/DL (8.5-10.1) L Height (Feet): 6 Height (Inches): 2.00 Weight (Pounds): 204 General Appearance: WD/WN, no apparent distress, alert Cardiovascular: normal rate Respiratory/Chest: normal breath sounds, no respiratory distress Abdominal Exam: normal bowel sounds, non tender, soft Extremities: normal range of motion, non-tender Luis Caballero NP Oct 07, 2018 11:09
[2018-10-07] MEDS ORDERED: Hydromorphone 0.5mg/0.5ml inj IVP PRN (11:15)
[2018-10-07] MEDS ORDERED: DiphenhydrAMINE 50mg/ml Inj IVP PRN (11:15)
--- NOTE | 2018-10-07 12:02 | Pulmonology Progress Note ---
Assessment/Plan Problems: (1) Abdominal pain (2) COPD (chronic obstructive pulmonary disease) (3) CAD (coronary artery disease) (4) Psychiatric disorder (5) Parkinson disease (6) Failure to thrive Assessment/Plan ate better no new complains all reviewed iv fluids check electrolytes symptomatic treatment respiratory treatment Subjective ROS Limited/Unobtainable: No Constitutional: Reports: no symptoms HEENT: Repors: no symptoms Respiratory: Reports: no symptoms Allergies: Coded Allergies: No Known Allergies (Unverified , 12/26/17) Objective Last 24 Hour Vital Signs Date Time Temp Pulse Resp B/P (MAP) Pulse Ox O2 Delivery O2 Flow Rate FiO2 10/07/18 09:00 Room Air 10/07/18 08:00 97.7 74 19 123/91 (102) 97 10/07/18 04:00 97.7 66 19 123/62 (82) 95 10/07/18 00:00 99.1 68 19 129/62 (84) 96 10/06/18 21:00 Room Air 10/06/18 20:00 98.8 75 19 114/50 (71) 96 10/06/18 16:00 98.8 77 20 136/66 (89) 96 Intake and Output 10/06/18 10/07/18 19:00 07:00 Intake Total 1275 ml Output Total 700 ml 600 ml Balance 575 ml -600 ml Intake Oral 600 ml IV Total 675 ml Output Urine Total 700 ml 600 ml General Appearance: WD/WN HEENT: normocephalic Respiratory/Chest: chest wall non-tender, lungs clear Cardiovascular: normal peripheral pulses, normal rate Genitourinary: normal external genitalia Extremities: no clubbing Skin: no rash Microbiology Date/Time Source Procedure Growth Status 10/05/18 17:25 Blood Blood Culture - Preliminary NO GROWTH AFTER 24 HOURS Resulted 10/05/18 17:10 Blood Blood Culture - Preliminary NO GROWTH AFTER 24 HOURS Resulted 10/05/18 17:30 Urine,Clean Catch Urine Culture - Preliminary Mixed Gram Positive Organism Resulted Laboratory Tests 10/07/18 05:50: White Blood Count 7.0, Red Blood Count 3.95L, Hemoglobin 12.3L, Hematocrit 35.7L , Mean Corpuscular Volume 90, Mean Corpuscular Hemoglobin 31.1H, Mean Corpuscular Hemoglobin Concent 34.4, Red Cell Distribution Width 11.3L, Platelet Count 125L, Mean Platelet Volume 6.7, Neutrophils (%) (Auto) 73.2, Lymphocytes (%) (Auto) 12.3L, Monocytes (%) (Auto) 12.3H, Eosinophils (%) (Auto ) 1.3, Basophils (%) (Auto) 0.9, Prothrombin Time 10.1, Prothromb Time International Ratio 1.0, Activated Partial Thromboplast Time 27, Sodium Level 143, Potassium Level 4.3, Chloride Level 108H, Carbon Dioxide Level 29, Anion Gap 6, Blood Urea Nitrogen 14, Creatinine 1.1, Estimat Glomerular Filtration Rate > 60, Glucose Level 158H, Calcium Level 8.2L Current Medications Medications (Trade) Dose Ordered Sig/Deon Route PRN Reason Start Time Stop Time Status Last Admin Dose Admin Acetaminophen (Tylenol) 650 mg Q4H PRN ORAL fever 10/04/18 13:00 11/03/18 12:59 10/05/18 13:15 Al Hydroxide/Mg Hydroxide (Mylanta II) 30 ml Q6H PRN ORAL dyspepsia 10/04/18 13:00 11/03/18 12:59 Amlodipine Besylate (Norvasc) 5 mg DAILY ORAL 10/05/18 09:00 11/04/18 08:59 Dextrose (Dextrose 50%) 25 ml Q30M PRN IV Hypoglycemia 10/04/18 13:15 11/03/18 13:06 Dextrose (Dextrose 50%) 50 ml Q30M PRN IV hypoglycemia 10/04/18 13:15 11/03/18 13:14 Dextrose/Sodium Chloride 1,000 ml @ 75 mls/hr [id number] IV 10/04/18 13:04 11/03/18 13:03 10/07/18 06:10 Diphenhydramine HCl (Benadryl) 25 mg Q15M PRN IVP Itching 10/07/18 11:15 10/07/18 18:00 Diphenhydramine HCl (Benadryl) 25 mg Q6H PRN ORAL Itching/Pruritis 10/04/18 13:00 11/03/18 12:59 Divalproex Sodium (Depakote ER) 500 mg EVERY 12 HOURS ORAL 10/04/18 21:00 11/03/18 20:59 10/06/18 20:28 Finasteride (Proscar) 5 mg DAILY ORAL 10/05/18 09:00 11/04/18 08:59 Hydralazine HCl (Apresoline) 5 mg Q30M PRN IV SBP>160 OR___/DBP>90 OR___ 10/07/18 11:15 10/07/18 18:00 Hydromorphone HCl (Dilaudid) 0.5 mg Q15M PRN IVP Severe Pain (Pain Scale 7-10) 10/07/18 11:15 10/07/18 18:00 Insulin Aspart (NovoLOG) BEFORE MEALS AND HS SUBQ 10/04/18 16:30 11/03/18 16:29 10/07/18 06:00 Lorazepam (Ativan) 1 mg Q6H PRN ORAL For Anxiety 10/07/18 03:45 10/14/18 03:44 Losartan Potassium (Cozaar) 50 mg DAILY ORAL 10/05/18 09:00 11/04/18 08:59 Morphine Sulfate (Morphine Sulfate) 2 mg Q4H PRN IVP severe Pain (Pain Scale 7-10) 10/04/18 13:00 10/11/18 12:59 Nitroglycerin (Ntg) 0.4 mg Q5M X 3 DOSES PRN SL Prn Chest Pain 10/04/18 13:00 11/03/18 12:59 Ondansetron HCl (Zofran) 4 mg Q6H PRN IVP Nausea & Vomiting 10/04/18 13:00 11/03/18 12:59 Piperacillin Sod/ Tazobactam Sod 3.375 gm/Dextrose 110 ml @ 27.5 mls/hr EVERY 8 HOURS IVPB 10/05/18 17:00 10/10/18 16:59 10/07/18 05:59 Polyethylene Glycol (Miralax) 17 gm HSPRN PRN ORAL Constipation 10/04/18 13:00 11/03/18 12:59 Quetiapine Fumarate (SEROquel) 50 mg BID ORAL 10/04/18 18:00 11/03/18 17:59 10/06/18 17:17 Sitagliptin Phosphate (Januvia) 100 mg DAILY ORAL 10/05/18 09:00 11/04/18 08:59 Tamsulosin HCl (Flomax) 0.4 mg BEDTIME ORAL 10/04/18 21:00 11/03/18 20:59 10/06/18 20:28 Temazepam (Restoril) 15 mg HSPRN PRN ORAL Insomnia 10/04/18 13:00 10/11/18 12:59 Ziprasidone (Geodon) 20 mg TWICE A DAY ORAL 10/04/18 18:00 11/03/18 17:59 10/06/18 17:16 Ivone Mojica MD Oct 07, 2018 12:02
[2018-10-07] MEDS ORDERED: NS Irrig 1000ml IRRIG ONE (12:04)
[2018-10-07] MEDS ORDERED: Glycopyrrolate 0.2mg/ml 1ml Vial ONE (12:12)
[2018-10-07] MEDS ORDERED: Metoclopramide 10mg/2ml Inj ONE (12:12)
[2018-10-07] MEDS ORDERED: Neostigmine 1mg/ml 10ml Inj ONE (12:12)
--- NOTE | 2018-10-07 12:45 | Consultation ---
DATE OF CONSULTATION: 10/07/2018 INITIAL PSYCHIATRIC EVALUATION AND CONSULTATION CONSULTING PHYSICIAN: Shiraz Angel M.D. REFERRING PHYSICIAN: Sharif Sanabria D.O. HISTORY OF PRESENT ILLNESS: This is a 68-year-old male patient who was admitted to the hospital secondary to abnormal labs and GI bleeding and he also has abdominal pain with GI bleeding. He also has overlying diagnosis of schizoaffective, bipolar type. His mood lability has worsened secondary to stress of his medical illness. That is why his attending physician has requested daily psychiatric consultation for this patient. I saw and assessed in his room. He said he still is slightly anxious, but working relatively well to help stabilize his mood, but anxiety has been a main problem for him and he would like to get something for that on as needed basis. MEDICAL HISTORY: He has GI bleeding, he has abdominal pain, he also has a history of diabetes, hypertension. He also has a history of COPD, weakness, Parkinson's, and failure to thrive. ALLERGIES: No known drug allergies. PSYCHOTROPIC MEDICATIONS ON ADMISSION: He is on Geodon 20 mg twice a day, Seroquel 50 twice a day, and Depakote 500 twice a day. SUBSTANCE ABUSE HISTORY: Denies drug and alcohol use. FAMILY PSYCHIATRIC HISTORY: Denies. PAIN ASSESSMENT: 0/10. DEVELOPMENTAL PROBLEMS: Denies. SOCIAL HISTORY: He is currently living in [facility]. He is financially supported by [employer] and Medicare. STRENGTHS: He is motivated to get better and he has a place to live. WEAKNESSES AND LIABILITIES: He is impulsive and has minimal support system for finances. MENTAL STATUS EXAMINATION: A 68-year-old male. His appearance is disheveled. Attitude, irritable and agitated. Affect is guarded and restricted. Intellect is poor because he does not know current events. Does not know . Mood is depressed and anxious. Motor activity, psychomotor agitation. Attention span is poor because he cannot spell world backwards or do serial 7's. Orientation x2, oriented to person and place, not to time or situation. Speech is normal volume, but slightly slurred and low volume. Thought process is disorganized and logical. Thought content, auditory hallucinations and paranoid delusions. Perception is poor because he has perceptual disturbances such as auditory hallucinations. Abstract reasoning is poor because he only has cognitive thinking. He does not understand proverbs. As far as his suicidality, he denies homicidality. Insight is poor because he does not recognize his psychiatric disorder. Judgment is poor because he does not take responsibility for his actions. Short-term memory, 3/3 word recall after 5 minutes delay with good short-term memory. Long-term is intact based on his knowledge of long-term events in his life such as high school that he went to. DIAGNOSES: 1. Schizoaffective, bipolar type. 2. Medical, diabetes, COPD, weakness, Parkinson's, failure to thrive, GI bleeding, and GI abdominal pain. 3. Psychosocial stressors, financial function impairment, severe. PLAN: I am going to add Ativan 1 mg every six hours p.r.n. anxiety and agitation, but also continue Geodon 20 mg twice a day, and Seroquel 50 mg twice a day, Depakote 500 mg twice a day and also provide 20 minutes of cognitive behavior therapy to help this patient identify automatic negative thoughts and help him convert those negative thoughts to more positive thoughts to reduce depression, anxiety, and suicidality. Shiraz Angel M.D. DR: HAYDEE JOB#: [id number] CC:
[2018-10-07] MEDS ORDERED: Ketorolac 30mg Inj ONE (12:47)
--- NOTE | 2018-10-07 12:49 | Infectious Diseases Prog Note ---
Assessment/Plan Assessment/Plan ASSESSMENT: The patient is a 68-year-old male with: Fever, Sp Normal white blood cells. Acute cholecystitis. Transaminitis, improving. Hepatitis panel: unremarkable HIDA scan Cystic duct: obstruction, suggestive of acute cholecystitis Ultrasound of the abdomen : Cholelithiasis EGD : Gastritis 10/05/2018. Diabetes. Schizoaffective disorder. COPD. Parkinson disease. Failure to thrive. History of left arm surgery PLAN: continue the patient on IV Zosyn day #2. Monitor CBC. Monitor BMP. Monitor liver function tests Monitor cultures (blood, urine) Surgical followup for cholecystectomy. GI followup Subjective Constitutional: Denies: no symptoms, fever, chills, fatigue, anorexia, drenching sweats, other Allergies: Coded Allergies: No Known Allergies (Unverified , 12/26/17) Objective Vital Signs Last 24 Hour Vital Signs Date Time Temp Pulse Resp B/P (MAP) Pulse Ox O2 Delivery O2 Flow Rate FiO2 10/07/18 09:00 Room Air 10/07/18 08:00 97.7 74 19 123/91 (102) 97 10/07/18 04:00 97.7 66 19 123/62 (82) 95 10/07/18 00:00 99.1 68 19 129/62 (84) 96 10/06/18 21:00 Room Air 10/06/18 20:00 98.8 75 19 114/50 (71) 96 10/06/18 16:00 98.8 77 20 136/66 (89) 96 Height (Feet): 6 Height (Inches): 2.00 Weight (Pounds): 204 HEENT: anicteric Respiratory/Chest: no respiratory distress Cardiovascular: regularly irregular Abdomen: no organomegaly Microbiology Date/Time Source Procedure Growth Status 10/05/18 17:25 Blood Blood Culture - Preliminary NO GROWTH AFTER 24 HOURS Resulted 10/05/18 17:10 Blood Blood Culture - Preliminary NO GROWTH AFTER 24 HOURS Resulted 10/05/18 17:30 Urine,Clean Catch Urine Culture - Preliminary Mixed Gram Positive Organism Resulted Laboratory Tests Test 10/07/18 05:50 White Blood Count 7.0 K/UL (4.8-10.8) Red Blood Count 3.95 M/UL (4.70-6.10) L Hemoglobin 12.3 G/DL (14.2-18.0) L Hematocrit 35.7 % (42.0-52.0) L Mean Corpuscular Volume 90 FL (80-99) Mean Corpuscular Hemoglobin 31.1 PG (27.0-31.0) H Mean Corpuscular Hemoglobin Concent 34.4 G/DL (32.0-36.0) Red Cell Distribution Width 11.3 % (11.6-14.8) L Platelet Count 125 K/UL (150-450) L Mean Platelet Volume 6.7 FL (6.5-10.1) Neutrophils (%) (Auto) 73.2 % (45.0-75.0) Lymphocytes (%) (Auto) 12.3 % (20.0-45.0) L Monocytes (%) (Auto) 12.3 % (1.0-10.0) H Eosinophils (%) (Auto) 1.3 % (0.0-3.0) Basophils (%) (Auto) 0.9 % (0.0-2.0) Prothrombin Time 10.1 SEC (9.30-11.50) Prothromb Time International Ratio 1.0 (0.9-1.1) Activated Partial Thromboplast Time 27 SEC (23-33) Sodium Level 143 MMOL/L (136-145) Potassium Level 4.3 MMOL/L (3.5-5.1) Chloride Level 108 MMOL/L (98-107) H Carbon Dioxide Level 29 MMOL/L (21-32) Anion Gap 6 mmol/L (5-15) Blood Urea Nitrogen 14 mg/dL (7-18) Creatinine 1.1 MG/DL (0.55-1.30) Estimat Glomerular Filtration Rate > 60 mL/min (>60) Glucose Level 158 MG/DL (74-106) H Calcium Level 8.2 MG/DL (8.5-10.1) L Current Medications Medications (Trade) Dose Ordered Sig/Deon Route PRN Reason Start Time Stop Time Status Last Admin Dose Admin Acetaminophen (Tylenol) 650 mg Q4H PRN ORAL fever 10/04/18 13:00 11/03/18 12:59 10/05/18 13:15 Al Hydroxide/Mg Hydroxide (Mylanta II) 30 ml Q6H PRN ORAL dyspepsia 10/04/18 13:00 11/03/18 12:59 Amlodipine Besylate (Norvasc) 5 mg DAILY ORAL 10/05/18 09:00 11/04/18 08:59 Dextrose (Dextrose 50%) 25 ml Q30M PRN IV Hypoglycemia 10/04/18 13:15 11/03/18 13:06 Dextrose (Dextrose 50%) 50 ml Q30M PRN IV hypoglycemia 10/04/18 13:15 11/03/18 13:14 Dextrose/Sodium Chloride 1,000 ml @ 75 mls/hr [id number] IV 10/04/18 13:04 11/03/18 13:03 10/07/18 06:10 Diphenhydramine HCl (Benadryl) 25 mg Q15M PRN IVP Itching 10/07/18 11:15 10/07/18 18:00 Diphenhydramine HCl (Benadryl) 25 mg Q6H PRN ORAL Itching/Pruritis 10/04/18 13:00 11/03/18 12:59 Divalproex Sodium (Depakote ER) 500 mg EVERY 12 HOURS ORAL 10/04/18 21:00 11/03/18 20:59 10/06/18 20:28 Finasteride (Proscar) 5 mg DAILY ORAL 10/05/18 09:00 11/04/18 08:59 Hydralazine HCl (Apresoline) 5 mg Q30M PRN IV SBP>160 OR___/DBP>90 OR___ 10/07/18 11:15 10/07/18 18:00 Hydromorphone HCl (Dilaudid) 0.5 mg Q15M PRN IVP Severe Pain (Pain Scale 7-10) 10/07/18 11:15 10/07/18 18:00 Insulin Aspart (NovoLOG) BEFORE MEALS AND HS SUBQ 10/04/18 16:30 11/03/18 16:29 10/07/18 06:00 Lorazepam (Ativan) 1 mg Q6H PRN ORAL For Anxiety 10/07/18 03:45 10/14/18 03:44 Losartan Potassium (Cozaar) 50 mg DAILY ORAL 10/05/18 09:00 11/04/18 08:59 Morphine Sulfate (Morphine Sulfate) 2 mg Q4H PRN IVP severe Pain (Pain Scale 7-10) 10/04/18 13:00 10/11/18 12:59 Nitroglycerin (Ntg) 0.4 mg Q5M X 3 DOSES PRN SL Prn Chest Pain 10/04/18 13:00 11/03/18 12:59 Ondansetron HCl (Zofran) 4 mg Q6H PRN IVP Nausea & Vomiting 10/04/18 13:00 11/03/18 12:59 Piperacillin Sod/ Tazobactam Sod 3.375 gm/Dextrose 110 ml @ 27.5 mls/hr EVERY 8 HOURS IVPB 10/05/18 17:00 10/10/18 16:59 10/07/18 05:59 Polyethylene Glycol (Miralax) 17 gm HSPRN PRN ORAL Constipation 10/04/18 13:00 11/03/18 12:59 Quetiapine Fumarate (SEROquel) 50 mg BID ORAL 10/04/18 18:00 11/03/18 17:59 10/06/18 17:17 Sitagliptin Phosphate (Januvia) 100 mg DAILY ORAL 10/05/18 09:00 11/04/18 08:59 Tamsulosin HCl (Flomax) 0.4 mg BEDTIME ORAL 10/04/18 21:00 11/03/18 20:59 10/06/18 20:28 Temazepam (Restoril) 15 mg HSPRN PRN ORAL Insomnia 10/04/18 13:00 10/11/18 12:59 Ziprasidone (Geodon) 20 mg TWICE A DAY ORAL 10/04/18 18:00 11/03/18 17:59 10/06/18 17:16 Vern Vaughn MD Oct 07, 2018 12:49
--- NOTE | 2018-10-07 13:05 | General Progress Note ---
Assessment/Plan Problem List: (1) HTN (hypertension) ICD Codes: I10 - Essential (primary) hypertension SNOMED: 05685341 (2) Diabetes ICD Codes: E11.9 - Type 2 diabetes mellitus without complications SNOMED: 98865172 (3) COPD (chronic obstructive pulmonary disease) ICD Codes: J44.9 - Chronic obstructive pulmonary disease, unspecified SNOMED: 56607132 (4) Psychiatric disorder ICD Codes: F99 - Mental disorder, not otherwise specified SNOMED: 07441999, 698002883 (5) Parkinson disease ICD Codes: G20 - Parkinson's disease SNOMED: 32876691 (6) UGI bleed ICD Codes: K92.2 - Gastrointestinal hemorrhage, unspecified SNOMED: 91892038 (7) Weak ICD Codes: R53.1 - Weakness SNOMED: 22800323 (8) Abdominal pain ICD Codes: R10.9 - Unspecified abdominal pain SNOMED: 83304496 Qualifiers: Qualified Codes: R10.31 - Right lower quadrant pain Status: stable, progressing Assessment/Plan ot pt diet gi f/u sx f/u cbc bmp am Subjective Constitutional: Reports: weakness Allergies: Coded Allergies: No Known Allergies (Unverified , 12/26/17) All Systems: reviewed and negative except above Subjective calm in bed awaitng sx Objective Last 24 Hour Vital Signs Date Time Temp Pulse Resp B/P (MAP) Pulse Ox O2 Delivery O2 Flow Rate FiO2 10/07/18 09:00 Room Air 10/07/18 08:00 97.7 74 19 123/91 (102) 97 10/07/18 04:00 97.7 66 19 123/62 (82) 95 10/07/18 00:00 99.1 68 19 129/62 (84) 96 10/06/18 21:00 Room Air 10/06/18 20:00 98.8 75 19 114/50 (71) 96 10/06/18 16:00 98.8 77 20 136/66 (89) 96 Intake and Output 10/06/18 10/07/18 19:00 07:00 Intake Total 1275 ml Output Total 700 ml 600 ml Balance 575 ml -600 ml Intake Oral 600 ml IV Total 675 ml Output Urine Total 700 ml 600 ml Laboratory Tests 10/07/18 05:50: White Blood Count 7.0, Red Blood Count 3.95L, Hemoglobin 12.3L, Hematocrit 35.7L , Mean Corpuscular Volume 90, Mean Corpuscular Hemoglobin 31.1H, Mean Corpuscular Hemoglobin Concent 34.4, Red Cell Distribution Width 11.3L, Platelet Count 125L, Mean Platelet Volume 6.7, Neutrophils (%) (Auto) 73.2, Lymphocytes (%) (Auto) 12.3L, Monocytes (%) (Auto) 12.3H, Eosinophils (%) (Auto ) 1.3, Basophils (%) (Auto) 0.9, Prothrombin Time 10.1, Prothromb Time International Ratio 1.0, Activated Partial Thromboplast Time 27, Sodium Level 143, Potassium Level 4.3, Chloride Level 108H, Carbon Dioxide Level 29, Anion Gap 6, Blood Urea Nitrogen 14, Creatinine 1.1, Estimat Glomerular Filtration Rate > 60, Glucose Level 158H, Calcium Level 8.2L Height (Feet): 6 Height (Inches): 2.00 Weight (Pounds): 204 General Appearance: lethargic EENT: normal ENT inspection Neck: normal alignment Cardiovascular: normal peripheral pulses, normal rate, regular rhythm Respiratory/Chest: chest wall non-tender, lungs clear, normal breath sounds Abdomen: normal bowel sounds, non tender, soft Extremities: normal inspection Edema: no edema noted Arm (L), no edema noted Arm (R), no edema noted Leg (L), no edema noted Leg (R), no edema noted Pedal (L), no edema noted Pedal (R), no edema noted Generalized Neurologic: motor weakness Skin: normal pigmentation, warm/dry Sharif Sanabria DO Oct 07, 2018 13:05
--- NOTE | 2018-10-07 13:49 | Brief Operative Note ---
Immediate Post Operative Note Operative Note Pre-op Diagnosis: acute cholecystitis Procedure: 1. lap melissa 2. umbilical hernia repair Post-op Diagnosis: same as pre-op Surgeon: ton Anesthesiologist: JIMENA Xie Anesthesia: general Specimen: yes Complications: none Condition: stable Fluids: see records Estimated Blood Loss: minimal Drains: none Implant(s) used?: No Shola Alaniz Oct 07, 2018 13:49
[2018-10-07] MEDS ORDERED: Morphine Sulfate 2mg/ml Inj IVP PRN (14:00)
[2018-10-07] MEDS ORDERED: ceFAZolin sod 2 GM in D5W 110 ML IV SCH (14:00)
[2018-10-07] MEDS ORDERED: HYDROcodone/Acetamin 10/325 tab ORAL PRN (14:00)
[2018-10-07] MEDS ORDERED: Ketorolac 30mg Inj IV PRN (14:00)
[2018-10-07] MEDS: Morphine Sulfate 4mg/ml Inj (IV/IM USE ONLY) IVP PRN ×2 (16:03→20:42)
[2018-10-07] MEDS ORDERED: D5 1/2NS 1000ml IV ONE (17:12)
[2018-10-07] MEDS: Docusate 100mg cap ORAL SCH (17:26)
--- NOTE | 2018-10-07 20:30 | Operative Note - Dictated ---
DATE OF OPERATION: 10/07/2018 PREOPERATIVE DIAGNOSES: 1. Acute cholecystitis. POSTOPERATIVE DIAGNOSES: 1. Acute cholecystitis. 2. Umbilical hernia. OPERATION PERFORMED: 1. Laparoscopic cholecystectomy. 2. Umbilical hernia repair. ATTENDING SURGEON: Shola Alaniz M.D. HELP DESK REPRESENTATIVE: None. ANESTHESIOLOGIST: Anne-Marie Holbrook CRNA. ANESTHESIA: General ACCOUNT EXECUTIVE KEY ACCOUNTS. ESTIMATED BLOOD LOSS: Minimal. IV FLUIDS: Please see anesthesia records. COMPLICATIONS: None. DRAINS: None. WOUND CLASSIFICATION: Class III. COUNTS: Sponge and needle count correct x2. IMPLANTS: None. COMPLICATIONS: None. INDICATIONS FOR PROCEDURE: This is a 68-year-old male who presented to the emergency room to the emergency room at [facility] complaining of acute onset of right upper quadrant abdominal pain with associated nausea and emesis. On admission, he was noted to have right upper quadrant tenderness/McBurney's point tenderness with elevated AST, ALT, and alkaline phosphatase of 202, 465, and 159 respectively. Lipase was normal and otherwise the patient was well. The patient was admitted for care and management at which time had a CT scan, which identified cholelithiasis, followed by an ultrasound, which also identified cholelithiasis and subsequently a HIDA scan, which identified cystic duct obstruction consistent with acute cholecystitis. Fortunately with medical therapy, the patient's symptoms improved, but given the imaging findings, cholecystectomy was indicated and recommended. Risks, benefits, alternatives were discussed with the patient in detail, who expressed understanding and consented for surgery. Of note, the patient was noted to have an umbilical hernia, which likely would need to be repaired depending on surgical technique. OPERATIVE NOTE: The patient taken to the operating room and placed on the operating room table in supine position with bilateral arms tucked. All bony prominences well padded. SCDs were placed. Preoperative time-out was taken identifying the patient, procedure, operative staff, and surgical staff. No Grant was inserted given the patient has voided prior to entering the operating room. A 2 g Ancef IV were given one hour prior to cut time. General anesthesia was induced. The patient was intubated. The abdomen was clipped, prepped, and draped in standard surgical fashion. The umbilical hernia was identified. An umbilical incision was made using a #11 scalpel. Omental contents were noted in the hernia and the defect was identified. The umbilical defect was used to enter the abdomen and a 12 mm Michael trocar was inserted and the abdomen was insufflated to 12 to 15 mmHg. Upon entering the laparoscope, there were significant fatty tissues around and no significant visualization could be noted. The laparoscope was then removed and it was identified that likely with the chronicity of the umbilical hernia omental contents had formed the adhesions circumferentially around the umbilicus at the peritoneal lining. Blunt dissection was carried down until a window was made and the trocar was then re-inserted and the abdomen was insufflated. Secondary trocars were then placed under direct visualization beginning with a 12 mm right epigastric subxiphoid port followed by two 5 mm right subcostal ports. The epigastric port site was used for the laparoscope and the umbilical port site was evaluated. Omental adhesions were noted circumferentially around the umbilical hernia defect. Laparoscopic portia/scissors were then used to sharply dissect down the omentum from its adhesions to the peritoneum. Once this was complete, electrocautery was used for hemostasis as necessary. The remainder of the umbilical hernia was identified and left alone. At this time, the omentum was allowed to fall into the back to its anatomical position. The right and left lower quadrants were identified and noted to be normal. The pelvis was identified and noted to be normal. The patient was then placed in reverse Trendelenburg position with left side down. The liver was identified and noted to be healthy, but with some blunted edges. The gallbladder was identified and noted to be severely diseased with acute cholecystitis and it was very distended and with a significant thickened wall. It could not be grasped with graspers and therefore decompression was necessary. A laparoscopic drainage needle was then inserted and the gallbladder was decompressed. Serous fluid was evacuated. It was not bilious in nature, indicative of hydrops of the gallbladder. Once approximately 100 mL was evacuated, the decompressed gallbladder was able to be grasped using most lateral port and retracted over the liver. At the infundibulum, there was a large stone impacted at the infundibulum completely obstructing the cystic duct. The cystic duct was seen with attachments at the infundibulum were taken down and the cystic artery and duct were then identified, visualized and circumferentially dissected out. Once the critical view was obtained, the cystic artery was doubly clipped and divided. The only remaining structure entering into the gallbladder was the cystic duct. The cystic duct was very short, approximately a centimeter in length and the common duct could be easily identified distally. Care was taken to ensure no injury to the common duct. The cystic duct was then doubly clipped and divided. The gallbladder was then taken off its liver attachments using electrocautery. Of note, there was significant thickening of the circumferential gallbladder wall with significant pericholecystic edema at the liver bed. Once this was completed, the gallbladder was placed in an endoscopic retrieval bag. Hemostasis was achieved with electrocautery. The right upper quadrant was irrigated and suctioned. The cystic duct and artery stumps were identified and noted to be intact without leakage of bile or bleeding. A Surgicel was placed in the liver bed. At this time, the gallbladder was to be removed from the abdomen using the umbilical trocar site. Using the endoscopic shaver, initial attempt was made to remove the gallbladder, but given the size of the stone, which was significantly larger, the fascial incision was extended. The gallbladder and stone were then removed and sent to pathology for review. At this time, we began the conclusion of our procedure. Secondary trocars were removed under direct visualization. Local anesthetic was infiltrated throughout the procedure through all proposed incision sites. The fascia of the subxiphoid 12 mm port was closed using a [id number] Vicryl suture. The edges of the umbilical hernia defect were freshened up and following this, the umbilical hernia defect was closed using multiple 0 Prolene [id number] sutures. Once appropriate repair was identified, all wounds were cleansed and skin incisions were closed using 4-0 Monocryl subcuticular interrupted sutures. Skin glue and dressings were applied. The patient tolerated the procedure well, was taken to postanesthetic care unit in stable condition. No immediate postoperative complications noted. Shola Alaniz M.D. DR: LINCOLN JOB#: [id number] CC: HARMONY
[2018-10-07] MEDS: Tamsulosin 0.4mg cap ORAL SCH (20:42)
[2018-10-08] VITALS (7 sets, daily range): BP systolic 126–162; BP diastolic 69–79
[2018-10-08] MEDS: Morphine Sulfate 4mg/ml Inj (IV/IM USE ONLY) IVP PRN ×3 (00:47→22:33)
[2018-10-08] MEDS: Piperacillin/Tazobactam 3.375 GM in D5W 110 ML IVPB SCH ×2 (05:44→13:54)
[2018-10-08] MEDS: NovoLOG Insulin Flexpen SUBQ SCH ×4 (05:53→20:14)
[2018-10-08 06:33] LABS: ANION GAP 11 mmol/L (5-15); BLOOD UREA NITROGEN 16 mg/dL (7-18); CALCIUM 8.5 MG/DL (8.5-10.1); CARBON DIOXIDE 27 MMOL/L (21-32); CHLORIDE 102 MMOL/L (98-107); CREATININE 1.3 MG/DL (0.55-1.30); POTASSIUM 3.5 MMOL/L (3.5-5.1); SODIUM 140 MMOL/L (136-145)
[2018-10-08 06:36] LABS: BASOPHILS % (AUTO) 0.4 % (0.0-2.0); HEMATOCRIT 41.7 % (42.0-52.0); HEMOGLOBIN 14.1 G/DL (14.2-18.0); LYMPHOCYTES % (AUTO) 9.5 % (20.0-45.0); MEAN CORPUSCULAR VOLUME 91 FL (80-99); MONOCYTES % (AUTO) 10.7 % (1.0-10.0); NEUTROPHILS % (AUTO) 79.4 % (45.0-75.0); PLATELET COUNT 169 K/UL (150-450); RED CELL DISTRIBUTION WIDTH 11.5 % (11.6-14.8); WHITE BLOOD COUNT 9.3 K/UL (4.8-10.8)
[2018-10-08] MEDS ORDERED: Ketorolac 30mg Inj IV PRN (08:00)
[2018-10-08] MEDS: Losartan 50mg tab ORAL SCH (09:37)
[2018-10-08] MEDS: Ziprasidone 20mg cap ORAL SCH ×2 (09:38→17:26)
[2018-10-08] MEDS: Depakote ER 500mg tab ORAL SCH ×2 (09:38→20:13)
[2018-10-08] MEDS: Docusate 100mg cap ORAL SCH ×2 (09:38→17:26)
--- NOTE | 2018-10-08 10:20 | 48 Hour Post Anesthesia Eval ---
Post Anesthesia Evaluation Procedure: Laparoscopic cholecystectomy Date of Evaluation: Oct 08, 2018 Time of Evaluation: 10:19 Blood Pressure Systolic: 148 0: 74 Pulse Rate: 68 Respiratory Rate: 22 Temperature (Fahrenheit): 97.6 O2 Sat by Pulse Oximetry: 98 Airway: patent Nausea: No Vomiting: No Pain Intensity: 2 Hydration Status: adequate Cardiopulmonary Status: stable Mental Status/LOC: patient returned to baseline Follow-up Care/Observations: n/a Post-Anesthesia Complications: none Follow-up care needed: N/A Bipin Olson MD Oct 08, 2018 10:20
--- NOTE | 2018-10-08 11:29 | General Progress Note ---
Progress Note Progress Note Surgery: no acute events. abdominal pain. no n/v/f/c. ambulatory with PT. abd soft, non distended, incisional tenderness, wounds c/d/i. labs okay s/p lap melissa for acute cholecystitis recovering diet as tolerated cont IV Abx - gb hydrops with thickened wall and lots of edema rx as written incentive spirometry pt/ot Shola Alaniz Oct 08, 2018 11:29
--- NOTE | 2018-10-08 11:55 | General Progress Note ---
Assessment/Plan Problem List: (1) HTN (hypertension) ICD Codes: I10 - Essential (primary) hypertension SNOMED: 51436479 (2) Diabetes ICD Codes: E11.9 - Type 2 diabetes mellitus without complications SNOMED: 17283638 (3) COPD (chronic obstructive pulmonary disease) ICD Codes: J44.9 - Chronic obstructive pulmonary disease, unspecified SNOMED: 08319768 (4) Psychiatric disorder ICD Codes: F99 - Mental disorder, not otherwise specified SNOMED: 15288915, 270448233 (5) Parkinson disease ICD Codes: G20 - Parkinson's disease SNOMED: 77541154 (6) UGI bleed ICD Codes: K92.2 - Gastrointestinal hemorrhage, unspecified SNOMED: 61619361 (7) Weak ICD Codes: R53.1 - Weakness SNOMED: 83229429 (8) Abdominal pain ICD Codes: R10.9 - Unspecified abdominal pain SNOMED: 94731003 Qualifiers: Qualified Codes: R10.31 - Right lower quadrant pain (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0 82 20 150/73 (98) 98 10/08/18 06:24 98.6 10/08/18 04:00 100.0 83 19 146/77 (100) 100 10/08/18 01:00 143/72 (95) 10/08/18 00:00 99.6 82 19 162/79 (106) 98 10/07/18 21:00 Nasal Cannula 3.0 10/07/18 20:00 98.1 79 19 151/71 (97) 97 10/07/18 18:43 100.6 85 19 129/80 (96) 99 10/07/18 17:15 100.6 85 19 123/92 (102) 99 10/07/18 16:00 97.8 76 19 156/83 (107) 96 10/07/18 14:10 99.0 80 19 167/82 (110) 100 10/07/18 13:45 98.2 77 20 152/67 98 Nasal Cannula 3 10/07/18 13:30 79 20 155/67 98 Nasal Cannula 3 10/07/18 13:19 83 20 154/54 98 Nasal Cannula 3 10/07/18 13:11 72 20 148/70 98 Simple Mask 8 10/07/18 13:06 75 20 148/72 98 Simple Mask 8 10/07/18 13:01 98.2 75 20 148/73 98 Simple Mask 8 Intake and Output 10/07/18 10/08/18 19:00 07:00 Intake Total 2065 ml 75 ml Output Total 200 ml Balance 2065 ml -125 ml Intake Oral 240 ml IV Total 1825 ml 75 ml Output Urine Total 200 ml # Voids 1 1 Laboratory Tests 10/08/18 05:00: White Blood Count 9.3, Red Blood Count 4.60L, Hemoglobin 14.1L, Hematocrit 41.7L , Mean Corpuscular Volume 91, Mean Corpuscular Hemoglobin 30.7, Mean Corpuscular Hemoglobin Concent 33.9, Red Cell Distribution Width 11.5L, Platelet Count 169, Mean Platelet Volume 5.4L, Neutrophils (%) (Auto) 79.4H, Lymphocytes (%) (Auto) 9.5L, Monocytes (%) (Auto) 10.7H, Eosinophils (%) (Auto) 0.0, Basophils (%) (Auto) 0.4, Sodium Level 140, Potassium Level 3.5, Chloride Level 102, Carbon Dioxide Level 27, Anion Gap 11, Blood Urea Nitrogen 16, Creatinine 1.3, Estimat Glomerular Filtration Rate 55.2, Glucose Level 167H, Calcium Level 8.5 Height (Feet): 6 Height (Inches): 2.00 Weight (Pounds): 204 General Appearance: lethargic EENT: normal ENT inspection Neck: normal alignment Cardiovascular: normal peripheral pulses, normal rate, regular rhythm Respiratory/Chest: chest wall non-tender, lungs clear, normal breath sounds Abdomen: non tender, soft, hypoactive bowel sounds Extremities: normal inspection Edema: no edema noted Arm (L), no edema noted Arm (R), no edema noted Leg (L), no edema noted Leg (R), no edema noted Pedal (L), no edema noted Pedal (R), no edema noted Generalized Neurologic: responsive, motor weakness Skin: normal pigmentation, warm/dry Sharif Sanabria DO Oct 08, 2018 11:55
--- NOTE | 2018-10-08 12:13 | GI Progress Note ---
Assessment/Plan Problems: (1) Cholecystitis ICD Codes: K81.9 - Cholecystitis, unspecified SNOMED: 32615054 (2) Abdominal pain ICD Codes: R10.9 - Unspecified abdominal pain SNOMED: 81988653 Qualifiers: Qualified Codes: R10.31 - Right lower quadrant pain (3) Elevated LFTs ICD Codes: R94.5 - Abnormal results of liver function studies SNOMED: 940693914, 456674008 (4) Fever ICD Codes: R50.9 - Fever, unspecified SNOMED: 783823118 (5) Pancytopenia ICD Codes: D61.818 - Other pancytopenia SNOMED: 432354331 (6) Failure to thrive SNOMED: 49064016 Status: stable Status Narrative Discussed with Dr. Valdez. Assessment/Plan s/p EGD >> gastritis, bx negative for H. Pylori s/p lap melissa, fu surgical recs pain mgmt zofran prn fu labs The patient was seen and examined at bedside and all new and available data was reviewed in the patients chart. I agree with the above findings, impression and plan. (Patient seen earlier today. Signature stamp does not reflect patient encounter time.). - Goran Valdez MD Subjective Gastrointestinal/Abdominal: Reports: abdominal pain Objective Last 24 Hour Vital Signs Date Time Temp Pulse Resp B/P (MAP) Pulse Ox O2 Delivery O2 Flow Rate FiO2 10/08/18 10:20 68 22 98 10/08/18 10:15 97.6 10/08/18 09:38 82 150/73 10/08/18 09:37 150/73 10/08/18 09:00 Nasal Cannula 3.0 10/08/18 08:00 99.0 82 20 150/73 (98) 98 10/08/18 06:24 98.6 10/08/18 04:00 100.0 83 19 146/77 (100) 100 10/08/18 01:00 143/72 (95) 10/08/18 00:00 99.6 82 19 162/79 (106) 98 10/07/18 21:00 Nasal Cannula 3.0 10/07/18 20:00 98.1 79 19 151/71 (97) 97 10/07/18 18:43 100.6 85 19 129/80 (96) 99 10/07/18 17:15 100.6 85 19 123/92 (102) 99 10/07/18 16:00 97.8 76 19 156/83 (107) 96 10/07/18 14:10 99.0 80 19 167/82 (110) 100 10/07/18 13:45 98.2 77 20 152/67 98 Nasal Cannula 3 10/07/18 13:30 79 20 155/67 98 Nasal Cannula 3 10/07/18 13:19 83 20 154/54 98 Nasal Cannula 3 10/07/18 13:11 72 20 148/70 98 Simple Mask 8 10/07/18 13:06 75 20 148/72 98 Simple Mask 8 10/07/18 13:01 98.2 75 20 148/73 98 Simple Mask 8 Intake and Output 10/07/18 10/08/18 19:00 07:00 Intake Total 2065 ml 75 ml Output Total 200 ml Balance 2065 ml -125 ml Intake Oral 240 ml IV Total 1825 ml 75 ml Output Urine Total 200 ml # Voids 1 1 Laboratory Tests Test 10/08/18 05:00 White Blood Count 9.3 K/UL (4.8-10.8) Red Blood Count 4.60 M/UL (4.70-6.10) L Hemoglobin 14.1 G/DL (14.2-18.0) L Hematocrit 41.7 % (42.0-52.0) L Mean Corpuscular Volume 91 FL (80-99) Mean Corpuscular Hemoglobin 30.7 PG (27.0-31.0) Mean Corpuscular Hemoglobin Concent 33.9 G/DL (32.0-36.0) Red Cell Distribution Width 11.5 % (11.6-14.8) L Platelet Count 169 K/UL (150-450) Mean Platelet Volume 5.4 FL (6.5-10.1) L Neutrophils (%) (Auto) 79.4 % (45.0-75.0) H Lymphocytes (%) (Auto) 9.5 % (20.0-45.0) L Monocytes (%) (Auto) 10.7 % (1.0-10.0) H Eosinophils (%) (Auto) 0.0 % (0.0-3.0) Basophils (%) (Auto) 0.4 % (0.0-2.0) Sodium Level 140 MMOL/L (136-145) Potassium Level 3.5 MMOL/L (3.5-5.1) Chloride Level 102 MMOL/L (98-107) Carbon Dioxide Level 27 MMOL/L (21-32) Anion Gap 11 mmol/L (5-15) Blood Urea Nitrogen 16 mg/dL (7-18) Creatinine 1.3 MG/DL (0.55-1.30) Estimat Glomerular Filtration Rate 55.2 mL/min (>60) Glucose Level 167 MG/DL (74-106) H Calcium Level 8.5 MG/DL (8.5-10.1) Height (Feet): 6 Height (Inches): 2.00 Weight (Pounds): 204 General Appearance: WD/WN, no apparent distress, alert Cardiovascular: normal rate Respiratory/Chest: normal breath sounds, no respiratory distress Abdominal Exam: normal bowel sounds, non tender, soft, other - surgical Extremities: normal range of motion, non-tender Luis Caballero [employer]OR Oct 08, 2018 12:13
--- NOTE | 2018-10-08 15:55 | Infectious Diseases Prog Note ---
Assessment/Plan Assessment/Plan ASSESSMENT: The patient is a 68-year-old male with: Fever, low grade ( post op) Normal white blood cells. Acute cholecystitis 10/07 SP cholecystectomy ( Hydrops, no perforation) Transaminitis, improving Hepatitis panel: unremarkable HIDA scan Cystic duct: obstruction, suggestive of acute cholecystitis Ultrasound of the abdomen : Cholelithiasis EGD : Gastritis 10/05/2018. Diabetes. Schizoaffective disorder. COPD. Parkinson disease. Failure to thrive. History of left arm surgery PLAN: DC V Zosyn day # 3 and monitor pt off of AB Rx Monitor CBC. Monitor BMP. Monitor liver function tests Monitor cultures (blood, urine) Subjective Allergies: Coded Allergies: No Known Allergies (Unverified , 12/26/17) Subjective Comfortable Objective Vital Signs Last 24 Hour Vital Signs Date Time Temp Pulse Resp B/P (MAP) Pulse Ox O2 Delivery O2 Flow Rate FiO2 10/08/18 12:00 99.0 62 134/71 (92) 62 10/08/18 10:20 68 22 98 10/08/18 10:15 97.6 10/08/18 09:38 82 150/73 10/08/18 09:37 150/73 10/08/18 09:00 Nasal Cannula 3.0 10/08/18 08:00 99.0 82 20 150/73 (98) 98 10/08/18 06:24 98.6 10/08/18 04:00 100.0 83 19 146/77 (100) 100 10/08/18 01:00 143/72 (95) 10/08/18 00:00 99.6 82 19 162/79 (106) 98 10/07/18 21:00 Nasal Cannula 3.0 10/07/18 20:00 98.1 79 19 151/71 (97) 97 10/07/18 18:43 100.6 85 19 129/80 (96) 99 10/07/18 17:15 100.6 85 19 123/92 (102) 99 10/07/18 16:00 97.8 76 19 156/83 (107) 96 Height (Feet): 6 Height (Inches): 2.00 Weight (Pounds): 204 HEENT: anicteric Respiratory/Chest: no accessory muscle use Cardiovascular: regular rhythm Microbiology Date/Time Source Procedure Growth Status 10/05/18 17:25 Blood Blood Culture - Preliminary NO GROWTH AFTER 48 HOURS Resulted 10/05/18 17:10 Blood Blood Culture - Preliminary NO GROWTH AFTER 48 HOURS Resulted 10/05/18 17:30 Urine,Clean Catch Urine Culture - Final Mixed Gram Positive Organism Complete Laboratory Tests Test 10/08/18 05:00 White Blood Count 9.3 K/UL (4.8-10.8) Red Blood Count 4.60 M/UL (4.70-6.10) L Hemoglobin 14.1 G/DL (14.2-18.0) L Hematocrit 41.7 % (42.0-52.0) L Mean Corpuscular Volume 91 FL (80-99) Mean Corpuscular Hemoglobin 30.7 PG (27.0-31.0) Mean Corpuscular Hemoglobin Concent 33.9 G/DL (32.0-36.0) Red Cell Distribution Width 11.5 % (11.6-14.8) L Platelet Count 169 K/UL (150-450) Mean Platelet Volume 5.4 FL (6.5-10.1) L Neutrophils (%) (Auto) 79.4 % (45.0-75.0) H Lymphocytes (%) (Auto) 9.5 % (20.0-45.0) L Monocytes (%) (Auto) 10.7 % (1.0-10.0) H Eosinophils (%) (Auto) 0.0 % (0.0-3.0) Basophils (%) (Auto) 0.4 % (0.0-2.0) Sodium Level 140 MMOL/L (136-145) Potassium Level 3.5 MMOL/L (3.5-5.1) Chloride Level 102 MMOL/L (98-107) Carbon Dioxide Level 27 MMOL/L (21-32) Anion Gap 11 mmol/L (5-15) Blood Urea Nitrogen 16 mg/dL (7-18) Creatinine 1.3 MG/DL (0.55-1.30) Estimat Glomerular Filtration Rate 55.2 mL/min (>60) Glucose Level 167 MG/DL (74-106) H Calcium Level 8.5 MG/DL (8.5-10.1) Current Medications Medications (Trade) Dose Ordered Sig/Deon Route PRN Reason Start Time Stop Time Status Last Admin Dose Admin Acetaminophen (Tylenol) 650 mg Q4H PRN ORAL fever 10/04/18 13:00 11/03/18 12:59 10/08/18 05:54 Al Hydroxide/Mg Hydroxide (Mylanta) 15 ml Q6H PRN ORAL DYSPEPSIA 10/07/18 14:00 11/06/18 13:59 Amlodipine Besylate (Norvasc) 5 mg DAILY ORAL 10/05/18 09:00 11/04/18 08:59 10/08/18 09:38 Dextrose (Dextrose 50%) 25 ml Q30M PRN IV Hypoglycemia 10/04/18 13:15 11/03/18 13:06 Dextrose (Dextrose 50%) 50 ml Q30M PRN IV hypoglycemia 10/04/18 13:15 11/03/18 13:14 Diphenhydramine HCl (Benadryl) 25 mg Q8H PRN ORAL Itching/Pruritis 10/07/18 14:00 11/06/18 13:59 Divalproex Sodium (Depakote ER) 500 mg EVERY 12 HOURS ORAL 10/04/18 21:00 11/03/18 20:59 10/08/18 09:38 Docusate Sodium (Colace) 100 mg TWICE A DAY ORAL 10/07/18 18:00 11/06/18 17:59 10/08/18 09:38 Finasteride (Proscar) 5 mg DAILY ORAL 10/05/18 09:00 11/04/18 08:59 10/08/18 09:38 Insulin Aspart (NovoLOG) BEFORE MEALS AND HS SUBQ 10/04/18 16:30 11/03/18 16:29 10/08/18 11:56 Ketorolac Tromethamine (Toradol 30mg) 15 mg Q6H PRN IV Breakthrough Pain 10/08/18 08:00 10/12/18 13:59 Lorazepam (Ativan) 1 mg Q6H PRN ORAL For Anxiety 10/07/18 03:45 10/14/18 03:44 Losartan Potassium (Cozaar) 50 mg DAILY ORAL 10/05/18 09:00 11/04/18 08:59 10/08/18 09:37 Morphine Sulfate (Morphine Sulfate) 1 mg Q4H PRN IVP pain scale 1-3 10/07/18 14:00 10/14/18 13:59 Morphine Sulfate (Morphine Sulfate) 2 mg Q4H PRN IVP Moderate Pain (Pain Scale 4-6) 10/08/18 14:00 10/15/18 13:59 Morphine Sulfate (Morphine Sulfate) 4 mg Q4H PRN IVP pain score 7-10 10/07/18 14:00 10/14/18 13:59 10/08/18 09:45 Nitroglycerin (Ntg) 0.4 mg Q5M X 3 DOSES PRN SL Prn Chest Pain 10/04/18 13:00 11/03/18 12:59 Ondansetron HCl (Zofran) 4 mg Q6H PRN IVP Nausea & Vomiting 10/04/18 13:00 11/03/18 12:59 10/07/18 18:39 Piperacillin Sod/ Tazobactam Sod 3.375 gm/Dextrose 110 ml @ 27.5 mls/hr EVERY 8 HOURS IVPB 10/05/18 17:00 10/10/18 16:59 10/08/18 13:54 Polyethylene Glycol (Miralax) 17 gm HSPRN PRN ORAL Constipation 10/04/18 13:00 11/03/18 12:59 Quetiapine Fumarate (SEROquel) 50 mg BID ORAL 10/04/18 18:00 11/03/18 17:59 10/08/18 09:38 Sitagliptin Phosphate (Januvia) 100 mg DAILY ORAL 10/05/18 09:00 11/04/18 08:59 10/08/18 09:37 Tamsulosin HCl (Flomax) 0.4 mg BEDTIME ORAL 10/04/18 21:00 11/03/18 20:59 10/07/18 20:42 Temazepam (Restoril) 7.5 mg HSPRN PRN ORAL Insomnia 10/07/18 14:00 10/14/18 13:59 Ziprasidone (Geodon) 20 mg TWICE A DAY ORAL 10/04/18 18:00 11/03/18 17:59 10/08/18 09:38 Vern Vaughn MD Oct 08, 2018 15:55
[2018-10-08] MEDS ORDERED: D5 1/2NS 1000ml IV ONE ×2 (16:20)
[2018-10-08] MEDS: Tamsulosin 0.4mg cap ORAL SCH (20:13)
--- NOTE | 2018-10-08 22:32 | Progress Note ---
DATE: 10/08/2018 NOTE: "POOR AUDIO QUALITY" SUBJECTIVE: The patient is a 68-year-old male patient. He has abnormal labs and complaints of GI bleeding. He also has altered mental status and confusion, diagnosis of schizoaffective bipolar type with increased mood lability, worsened by the stress of his medical illness. That is why, his attending has requested daily psychiatric consultation with diagnosis of schizoaffective, bipolar type. MENTAL STATUS EXAMINATION: This is a 68-year-old male. Appearance is disheveled. Attitude, irritable and agitated. Affect, guarded and restricted. Intellect poor. Mood, depressed and anxious. Motor activity, psychomotor agitation. Attention span is poor. Orientation x2. Speech is pressured. Thought process, disorganized and illogical. Thought content, auditory hallucinations and paranoid delusions. Insight and judgment is poor. DIAGNOSIS: Schizoaffective, bipolar type. PLAN: Treat him with Geodon 20 mg twice a day, Seroquel 50 mg twice a day, and Depakote 500 twice a day to stabilize his mood. Twenty minutes of cognitive behavioral therapy to provided to help him identify his automatic negative thoughts and to help him convert those negative thoughts to more positive thinking to reduce depression and anxiety. Seen and assessed at bedside. Chart reviewed. Discussed with staff. Seen and assessed in his room. Shiraz Angel M.D. DR: Tung JOB#: [id number] CC:
[2018-10-09 00:10] VITALS: BP 125/60
[2018-10-09] MEDS: Morphine Sulfate 2mg/ml Inj IVP PRN ×3 (03:18→13:46)
[2018-10-09 04:00] VITALS: BP 125/58
[2018-10-09] MEDS: NovoLOG Insulin Flexpen SUBQ SCH ×4 (06:05→20:27)
[2018-10-09 07:26] LABS: BASOPHILS % (AUTO) 0.9 % (0.0-2.0); EOSINOPHILS % (AUTO) 0.6 % (0.0-3.0); HEMATOCRIT 34.8 % (42.0-52.0); HEMOGLOBIN 12.2 G/DL (14.2-18.0); LYMPHOCYTES % (AUTO) 7.5 % (20.0-45.0); MEAN CORPUSCULAR VOLUME 90 FL (80-99); MONOCYTES % (AUTO) 14.1 % (1.0-10.0); NEUTROPHILS % (AUTO) 76.8 % (45.0-75.0); PLATELET COUNT 160 K/UL (150-450); RED BLOOD COUNT 3.88 M/UL (4.70-6.10); RED CELL DISTRIBUTION WIDTH 10.9 % (11.6-14.8); WHITE BLOOD COUNT 8.3 K/UL (4.8-10.8)
[2018-10-09 07:30] LABS: ANION GAP 7 mmol/L (5-15); BLOOD UREA NITROGEN 16 mg/dL (7-18); CALCIUM 8.8 MG/DL (8.5-10.1); CARBON DIOXIDE 28 MMOL/L (21-32); CHLORIDE 106 MMOL/L (98-107); POTASSIUM 4.1 MMOL/L (3.5-5.1); SODIUM 141 MMOL/L (136-145)
[2018-10-09 08:00] VITALS: BP 132/62
--- NOTE | 2018-10-09 08:08 | Pulmonology Progress Note ---
Assessment/Plan Assessment/Plan ASSESSMENT Upper GI bleeding status post EGD with biopsy chronic gastritis acute cholecystitis status post laparoscopic cholecystectomy with umbilical hernia repair COPD hypertension diabetes schizoaffective disorder bipolar type PLAN of CARE [facility] floor IVF HIDA was + acute melissa , s/p lap melissa surgery follows tolerates diet IV abx pain management bowel regimen , had BM PT/OT IS while in the bed O2 HHN prn BP --> ARB BS--> Januvia + SSI prn LFT trending down : AST WNL, ALT with trend down GI follows s/p EGD with biopsy , which revealed mild to moderate chronic gastritis , no evidence of H. pylori GI prophylaxis monitor HH with goal to keep Hgb above 7- latest 12.2/ 24.8 psych follows, fup with psych recs dc planning case discussed and evaluated by supervising physician Subjective Allergies: Coded Allergies: No Known Allergies (Unverified , 12/26/17) Subjective pain controlled tolerated diet no SOB, no CP small BM yesterday Objective Last 24 Hour Vital Signs Date Time Temp Pulse Resp B/P (MAP) Pulse Ox O2 Delivery O2 Flow Rate FiO2 10/09/18 08:00 98.3 88 19 132/62 (85) 97 10/09/18 04:00 99.2 85 18 125/58 (80) 97 10/09/18 03:48 98.9 10/09/18 00:39 98.9 10/09/18 00:10 98.9 86 19 125/60 (81) 94 10/08/18 23:03 97.5 10/08/18 20:58 Nasal Cannula 3.0 10/08/18 20:48 97.5 83 19 126/69 (88) 95 10/08/18 16:00 99.0 83 24 143/69 (93) 97 10/08/18 12:00 99.0 62 134/71 (92) 62 10/08/18 10:20 68 22 98 10/08/18 09:38 82 150/73 10/08/18 09:37 150/73 10/08/18 09:00 Nasal Cannula 3.0 Intake and Output 10/08/18 10/09/18 19:00 07:00 Intake Total 860.0 ml Output Total 300 ml 400 ml Balance 560.0 ml -400 ml Intake Oral 450 ml IV Total 410.0 ml Output Urine Total 300 ml 400 ml General Appearance: no acute distress, other - awake, alert, resposnive HEENT: normocephalic, atraumatic, anicteric Respiratory/Chest: no respiratory distress, no accessory muscle use Cardiovascular: normal rate, no JVD Abdomen: normal bowel sounds, soft, non tender - few lap incisiions clean Extremities: no edema, pedal pulses normal 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, no motor/sensory deficits, alert, oriented x 3, responsive, normal mood/affect Musculoskeletal: normal muscle bulk Laboratory Tests 10/09/18 06:40: White Blood Count 8.3, Red Blood Count 3.88L, Hemoglobin 12.2L, Hematocrit 34.8L , Mean Corpuscular Volume 90, Mean Corpuscular Hemoglobin 31.3H, Mean Corpuscular Hemoglobin Concent 35.0, Red Cell Distribution Width 10.9L, Platelet Count 160, Mean Platelet Volume 5.3L, Neutrophils (%) (Auto) 76.8H, Lymphocytes (%) (Auto) 7.5L, Monocytes (%) (Auto) 14.1H, Eosinophils (%) (Auto) 0.6, Basophils (%) (Auto) 0.9, Sodium Level 141, Potassium Level 4.1, Chloride Level 106, Carbon Dioxide Level 28, Anion Gap 7, Blood Urea Nitrogen 16, Creatinine 1.0, Estimat Glomerular Filtration Rate > 60, Glucose Level 159H, Calcium Level 8.8 Current Medications Medications (Trade) Dose Ordered Sig/Deon Route PRN Reason Start Time Stop Time Status Last Admin Dose Admin Acetaminophen (Tylenol) 650 mg Q4H PRN ORAL fever 10/04/18 13:00 11/03/18 12:59 10/09/18 00:09 Al Hydroxide/Mg Hydroxide (Mylanta) 15 ml Q6H PRN ORAL DYSPEPSIA 10/07/18 14:00 11/06/18 13:59 Amlodipine Besylate (Norvasc) 5 mg DAILY ORAL 10/05/18 09:00 11/04/18 08:59 10/08/18 09:38 Dextrose (Dextrose 50%) 25 ml Q30M PRN IV Hypoglycemia 10/04/18 13:15 11/03/18 13:06 Dextrose (Dextrose 50%) 50 ml Q30M PRN IV hypoglycemia 10/04/18 13:15 11/03/18 13:14 Diphenhydramine HCl (Benadryl) 25 mg Q8H PRN ORAL Itching/Pruritis 10/07/18 14:00 11/06/18 13:59 Divalproex Sodium (Depakote ER) 500 mg EVERY 12 HOURS ORAL 10/04/18 21:00 11/03/18 20:59 10/08/18 20:13 Docusate Sodium (Colace) 100 mg TWICE A DAY ORAL 10/07/18 18:00 11/06/18 17:59 10/08/18 17:26 Finasteride (Proscar) 5 mg DAILY ORAL 10/05/18 09:00 11/04/18 08:59 10/08/18 09:38 Insulin Aspart (NovoLOG) BEFORE MEALS AND HS SUBQ 10/04/18 16:30 11/03/18 16:29 10/09/18 06:05 Ketorolac Tromethamine (Toradol 30mg) 15 mg Q6H PRN IV Breakthrough Pain 10/08/18 08:00 10/12/18 13:59 Lorazepam (Ativan) 1 mg Q6H PRN ORAL For Anxiety 10/07/18 03:45 10/14/18 03:44 Losartan Potassium (Cozaar) 50 mg DAILY ORAL 10/05/18 09:00 11/04/18 08:59 10/08/18 09:37 Morphine Sulfate (Morphine Sulfate) 1 mg Q4H PRN IVP pain scale 1-3 10/07/18 14:00 10/14/18 13:59 Morphine Sulfate (Morphine Sulfate) 2 mg Q4H PRN IVP Moderate Pain (Pain Scale 4-6) 10/08/18 14:00 10/15/18 13:59 10/09/18 03:18 Morphine Sulfate (Morphine Sulfate) 4 mg Q4H PRN IVP pain score 7-10 10/07/18 14:00 10/14/18 13:59 10/08/18 22:33 Nitroglycerin (Ntg) 0.4 mg Q5M X 3 DOSES PRN SL Prn Chest Pain 10/04/18 13:00 11/03/18 12:59 Ondansetron HCl (Zofran) 4 mg Q6H PRN IVP Nausea & Vomiting 10/04/18 13:00 11/03/18 12:59 10/07/18 18:39 Polyethylene Glycol (Miralax) 17 gm HSPRN PRN ORAL Constipation 10/04/18 13:00 11/03/18 12:59 Quetiapine Fumarate (SEROquel) 50 mg BID ORAL 10/04/18 18:00 11/03/18 17:59 10/08/18 17:26 Sitagliptin Phosphate (Januvia) 100 mg DAILY ORAL 10/05/18 09:00 11/04/18 08:59 10/08/18 09:37 Tamsulosin HCl (Flomax) 0.4 mg BEDTIME ORAL 10/04/18 21:00 11/03/18 20:59 10/08/18 20:13 Temazepam (Restoril) 7.5 mg HSPRN PRN ORAL Insomnia 10/07/18 14:00 10/14/18 13:59 Ziprasidone (Geodon) 20 mg TWICE A DAY ORAL 10/04/18 18:00 11/03/18 17:59 10/08/18 17:26 Dara Ojeda [employer] Oct 09, 2018 08:07
[2018-10-09] MEDS: Depakote ER 500mg tab ORAL SCH ×2 (08:26→20:26)
[2018-10-09] MEDS: Losartan 50mg tab ORAL SCH (08:26)
[2018-10-09] MEDS: Ziprasidone 20mg cap ORAL SCH ×2 (08:27→17:32)
[2018-10-09] MEDS: Docusate 100mg cap ORAL SCH ×2 (08:27→17:31)
--- NOTE | 2018-10-09 08:30 | General Progress Note ---
Assessment/Plan Problem List: (1) HTN (hypertension) ICD Codes: I10 - Essential (primary) hypertension SNOMED: 60818959 (2) Diabetes ICD Codes: E11.9 - Type 2 diabetes mellitus without complications SNOMED: 13532295 (3) COPD (chronic obstructive pulmonary disease) ICD Codes: J44.9 - Chronic obstructive pulmonary disease, unspecified SNOMED: 11623112 (4) Psychiatric disorder ICD Codes: F99 - Mental disorder, not otherwise specified SNOMED: 31413397, 105124940 (5) Parkinson disease ICD Codes: G20 - Parkinson's disease SNOMED: 82671564 (6) UGI bleed ICD Codes: K92.2 - Gastrointestinal hemorrhage, unspecified SNOMED: 12157622 (7) Weak ICD Codes: R53.1 - Weakness SNOMED: 20312655 (8) Abdominal pain ICD Codes: R10.9 - Unspecified abdominal pain SNOMED: 85813866 Qualifiers: Qualified Codes: R10.31 - Right lower quadrant pain (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 SNOMED: 00349068 Status: stable, progressing Assessment/Plan adv diet ot pt diet gi f/u sx f/u cbc bmp am dc plan if clear by sx Subjective Constitutional: Reports: weakness Allergies: Coded Allergies: No Known Allergies (Unverified , 12/26/17) All Systems: reviewed and negative except above Subjective o2nc sleeping Objective Last 24 Hour Vital Signs Date Time Temp Pulse Resp B/P (MAP) Pulse Ox O2 Delivery O2 Flow Rate FiO2 10/09/18 08:27 88 132/62 10/09/18 08:26 132/62 10/09/18 08:00 98.3 88 19 132/62 (85) 97 10/09/18 04:00 99.2 85 18 125/58 (80) 97 10/09/18 03:48 98.9 10/09/18 00:39 98.9 10/09/18 00:10 98.9 86 19 125/60 (81) 94 10/08/18 23:03 97.5 10/08/18 20:58 Nasal Cannula 3.0 10/08/18 20:48 97.5 83 19 126/69 (88) 95 10/08/18 16:00 99.0 83 24 143/69 (93) 97 10/08/18 12:00 99.0 62 134/71 (92) 62 10/08/18 10:20 68 22 98 10/08/18 09:38 82 150/73 10/08/18 09:37 150/73 10/08/18 09:00 Nasal Cannula 3.0 Intake and Output 10/08/18 10/09/18 19:00 07:00 Intake Total 860.0 ml Output Total 300 ml 400 ml Balance 560.0 ml -400 ml Intake Oral 450 ml IV Total 410.0 ml Output Urine Total 300 ml 400 ml Laboratory Tests 10/09/18 06:40: White Blood Count 8.3, Red Blood Count 3.88L, Hemoglobin 12.2L, Hematocrit 34.8L , Mean Corpuscular Volume 90, Mean Corpuscular Hemoglobin 31.3H, Mean Corpuscular Hemoglobin Concent 35.0, Red Cell Distribution Width 10.9L, Platelet Count 160, Mean Platelet Volume 5.3L, Neutrophils (%) (Auto) 76.8H, Lymphocytes (%) (Auto) 7.5L, Monocytes (%) (Auto) 14.1H, Eosinophils (%) (Auto) 0.6, Basophils (%) (Auto) 0.9, Sodium Level 141, Potassium Level 4.1, Chloride Level 106, Carbon Dioxide Level 28, Anion Gap 7, Blood Urea Nitrogen 16, Creatinine 1.0, Estimat Glomerular Filtration Rate > 60, Glucose Level 159H, Calcium Level 8.8 Height (Feet): 6 Height (Inches): 2.00 Weight (Pounds): 204 General Appearance: lethargic EENT: normal ENT inspection Neck: normal alignment Cardiovascular: normal peripheral pulses, normal rate, regular rhythm Respiratory/Chest: chest wall non-tender, lungs clear, normal breath sounds Abdomen: normal bowel sounds, non tender, soft Extremities: normal inspection Edema: no edema noted Arm (L), no edema noted Arm (R), no edema noted Leg (L), no edema noted Leg (R), no edema noted Pedal (L), no edema noted Pedal (R), no edema noted Generalized Neurologic: motor weakness Skin: normal pigmentation, warm/dry Sharif Sanabria DO Oct 09, 2018 08:30
--- NOTE | 2018-10-09 10:02 | General Progress Note ---
Assessment/Plan Problem List: (1) Cholecystitis ICD Codes: K81.9 - Cholecystitis, unspecified SNOMED: 66437705 (2) UGI bleed ICD Codes: K92.2 - Gastrointestinal hemorrhage, unspecified SNOMED: 38526218 (3) Abdominal pain ICD Codes: R10.9 - Unspecified abdominal pain SNOMED: 67796931 Qualifiers: Qualified Codes: R10.31 - Right lower quadrant pain (4) HTN (hypertension) ICD Codes: I10 - Essential (primary) hypertension SNOMED: 55238446 (5) Diabetes ICD Codes: E11.9 - Type 2 diabetes mellitus without complications SNOMED: 38382507 (6) Psychiatric disorder ICD Codes: F99 - Mental disorder, not otherwise specified SNOMED: 09383633, 992426999 Assessment/Plan s/p EGD >> gastritis, bx negative for H. Pylori s/p lap melissa, fu surgical recs pain mgmt zofran prn fu labs Subjective ROS Limited/Unobtainable: Yes Allergies: Coded Allergies: No Known Allergies (Unverified , 12/26/17) Objective Last 24 Hour Vital Signs Date Time Temp Pulse Resp B/P (MAP) Pulse Ox O2 Delivery O2 Flow Rate FiO2 10/09/18 08:58 98.3 10/09/18 08:27 88 132/62 10/09/18 08:26 132/62 10/09/18 08:00 98.3 88 19 132/62 (85) 97 10/09/18 04:00 99.2 85 18 125/58 (80) 97 10/09/18 00:39 98.9 10/09/18 00:10 98.9 86 19 125/60 (81) 94 10/08/18 23:03 97.5 10/08/18 20:58 Nasal Cannula 3.0 10/08/18 20:48 97.5 83 19 126/69 (88) 95 10/08/18 16:00 99.0 83 24 143/69 (93) 97 10/08/18 12:00 99.0 62 134/71 (92) 62 10/08/18 10:20 68 22 98 Intake and Output 10/08/18 10/09/18 19:00 07:00 Intake Total 860.0 ml Output Total 300 ml 400 ml Balance 560.0 ml -400 ml Intake Oral 450 ml IV Total 410.0 ml Output Urine Total 300 ml 400 ml Laboratory Tests 10/09/18 06:40: White Blood Count 8.3, Red Blood Count 3.88L, Hemoglobin 12.2L, Hematocrit 34.8L , Mean Corpuscular Volume 90, Mean Corpuscular Hemoglobin 31.3H, Mean Corpuscular Hemoglobin Concent 35.0, Red Cell Distribution Width 10.9L, Platelet Count 160, Mean Platelet Volume 5.3L, Neutrophils (%) (Auto) 76.8H, Lymphocytes (%) (Auto) 7.5L, Monocytes (%) (Auto) 14.1H, Eosinophils (%) (Auto) 0.6, Basophils (%) (Auto) 0.9, Sodium Level 141, Potassium Level 4.1, Chloride Level 106, Carbon Dioxide Level 28, Anion Gap 7, Blood Urea Nitrogen 16, Creatinine 1.0, Estimat Glomerular Filtration Rate > 60, Glucose Level 159H, Calcium Level 8.8 Height (Feet): 6 Height (Inches): 2.00 Weight (Pounds): 204 EENT: normal ENT inspection Neck: non-tender, normal alignment Cardiovascular: normal rate Respiratory/Chest: lungs clear Abdomen: soft, hypoactive bowel sounds Extremities: non-tender Goran Valdez MD Oct 09, 2018 10:02
--- NOTE | 2018-10-09 11:40 | Infectious Diseases Prog Note ---
Assessment/Plan Assessment/Plan ASSESSMENT: The patient is a 68-year-old male with: Fever, low grade ( post op), improving Bcx NTD CXR no acute findings Normal white blood cells. Acute cholecystitis 10/07 SP cholecystectomy ( Hydrops, no perforation) Transaminitis, improving Hepatitis panel: unremarkable HIDA scan Cystic duct: obstruction, suggestive of acute cholecystitis Ultrasound of the abdomen : Cholelithiasis EGD : Gastritis 10/05/2018. Diabetes. Schizoaffective disorder. COPD. Parkinson disease. Failure to thrive. History of left arm surgery PLAN: Monitor pt off of AB Rx -10/08 SP Zosyn day # 3 Monitor CBC. Monitor BMP. Monitor liver function tests; CMP am Monitor cultures (blood) Subjective Allergies: Coded Allergies: No Known Allergies (Unverified , 12/26/17) Subjective afebrile in >24hrs no leukocytosis off abx Bcx NTD Objective Vital Signs Last 24 Hour Vital Signs Date Time Temp Pulse Resp B/P (MAP) Pulse Ox O2 Delivery O2 Flow Rate FiO2 10/09/18 09:00 Nasal Cannula 3.0 10/09/18 08:58 98.3 10/09/18 08:27 88 132/62 10/09/18 08:26 132/62 10/09/18 08:00 98.3 88 19 132/62 (85) 97 10/09/18 04:00 99.2 85 18 125/58 (80) 97 10/09/18 00:39 98.9 10/09/18 00:10 98.9 86 19 125/60 (81) 94 10/08/18 23:03 97.5 10/08/18 20:58 Nasal Cannula 3.0 10/08/18 20:48 97.5 83 19 126/69 (88) 95 10/08/18 16:00 99.0 83 24 143/69 (93) 97 10/08/18 12:00 99.0 62 134/71 (92) 62 Height (Feet): 6 Height (Inches): 2.00 Weight (Pounds): 204 Objective General Appearance: no acute distress, other - awake, alert, resposnive HEENT: normocephalic, atraumatic, anicteric Respiratory/Chest: no respiratory distress, no accessory muscle use Cardiovascular: normal rate, no JVD Abdomen: normal bowel sounds, soft, non tender - few lap incisiions clean Extremities: no edema, pedal pulses normal 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, no motor/sensory deficits, alert, oriented x 3, responsive, normal mood/affect Musculoskeletal: normal muscle bulk Laboratory Tests Test 10/09/18 06:40 White Blood Count 8.3 K/UL (4.8-10.8) Red Blood Count 3.88 M/UL (4.70-6.10) L Hemoglobin 12.2 G/DL (14.2-18.0) L Hematocrit 34.8 % (42.0-52.0) L Mean Corpuscular Volume 90 FL (80-99) Mean Corpuscular Hemoglobin 31.3 PG (27.0-31.0) H Mean Corpuscular Hemoglobin Concent 35.0 G/DL (32.0-36.0) Red Cell Distribution Width 10.9 % (11.6-14.8) L Platelet Count 160 K/UL (150-450) Mean Platelet Volume 5.3 FL (6.5-10.1) L Neutrophils (%) (Auto) 76.8 % (45.0-75.0) H Lymphocytes (%) (Auto) 7.5 % (20.0-45.0) L Monocytes (%) (Auto) 14.1 % (1.0-10.0) H Eosinophils (%) (Auto) 0.6 % (0.0-3.0) Basophils (%) (Auto) 0.9 % (0.0-2.0) Sodium Level 141 MMOL/L (136-145) Potassium Level 4.1 MMOL/L (3.5-5.1) Chloride Level 106 MMOL/L (98-107) Carbon Dioxide Level 28 MMOL/L (21-32) Anion Gap 7 mmol/L (5-15) Blood Urea Nitrogen 16 mg/dL (7-18) Creatinine 1.0 MG/DL (0.55-1.30) Estimat Glomerular Filtration Rate > 60 mL/min (>60) Glucose Level 159 MG/DL (74-106) H Calcium Level 8.8 MG/DL (8.5-10.1) Current Medications Medications (Trade) Dose Ordered Sig/Deon Route PRN Reason Start Time Stop Time Status Last Admin Dose Admin Acetaminophen (Tylenol) 650 mg Q4H PRN ORAL fever 10/04/18 13:00 11/03/18 12:59 10/09/18 00:09 Al Hydroxide/Mg Hydroxide (Mylanta) 15 ml Q6H PRN ORAL DYSPEPSIA 10/07/18 14:00 11/06/18 13:59 Amlodipine Besylate (Norvasc) 5 mg DAILY ORAL 10/05/18 09:00 11/04/18 08:59 10/09/18 08:27 Dextrose (Dextrose 50%) 25 ml Q30M PRN IV Hypoglycemia 10/04/18 13:15 11/03/18 13:06 Dextrose (Dextrose 50%) 50 ml Q30M PRN IV hypoglycemia 10/04/18 13:15 11/03/18 13:14 Diphenhydramine HCl (Benadryl) 25 mg Q8H PRN ORAL Itching/Pruritis 10/07/18 14:00 11/06/18 13:59 Divalproex Sodium (Depakote ER) 500 mg EVERY 12 HOURS ORAL 10/04/18 21:00 11/03/18 20:59 10/09/18 08:26 Docusate Sodium (Colace) 100 mg TWICE A DAY ORAL 10/07/18 18:00 11/06/18 17:59 10/09/18 08:27 Finasteride (Proscar) 5 mg DAILY ORAL 10/05/18 09:00 11/04/18 08:59 10/09/18 08:27 Insulin Aspart (NovoLOG) BEFORE MEALS AND HS SUBQ 10/04/18 16:30 11/03/18 16:29 10/09/18 06:05 Ketorolac Tromethamine (Toradol 30mg) 15 mg Q6H PRN IV Breakthrough Pain 10/08/18 08:00 10/12/18 13:59 Lorazepam (Ativan) 1 mg Q6H PRN ORAL For Anxiety 10/07/18 03:45 10/14/18 03:44 Losartan Potassium (Cozaar) 50 mg DAILY ORAL 10/05/18 09:00 11/04/18 08:59 10/09/18 08:26 Morphine Sulfate (Morphine Sulfate) 1 mg Q4H PRN IVP pain scale 1-3 10/07/18 14:00 10/14/18 13:59 Morphine Sulfate (Morphine Sulfate) 2 mg Q4H PRN IVP Moderate Pain (Pain Scale 4-6) 10/08/18 14:00 10/15/18 13:59 10/09/18 08:28 Morphine Sulfate (Morphine Sulfate) 4 mg Q4H PRN IVP pain score 7-10 10/07/18 14:00 10/14/18 13:59 10/08/18 22:33 Nitroglycerin (Ntg) 0.4 mg Q5M X 3 DOSES PRN SL Prn Chest Pain 10/04/18 13:00 11/03/18 12:59 Ondansetron HCl (Zofran) 4 mg Q6H PRN IVP Nausea & Vomiting 10/04/18 13:00 11/03/18 12:59 10/07/18 18:39 Polyethylene Glycol (Miralax) 17 gm HSPRN PRN ORAL Constipation 10/04/18 13:00 11/03/18 12:59 Quetiapine Fumarate (SEROquel) 50 mg BID ORAL 10/04/18 18:00 11/03/18 17:59 10/09/18 08:26 Sitagliptin Phosphate (Januvia) 100 mg DAILY ORAL 10/05/18 09:00 11/04/18 08:59 10/09/18 08:27 Tamsulosin HCl (Flomax) 0.4 mg BEDTIME ORAL 10/04/18 21:00 11/03/18 20:59 10/08/18 20:13 Temazepam (Restoril) 7.5 mg HSPRN PRN ORAL Insomnia 10/07/18 14:00 10/14/18 13:59 Ziprasidone (Geodon) 20 mg TWICE A DAY ORAL 10/04/18 18:00 11/03/18 17:59 10/09/18 08:27 Eri House M.D. Oct 09, 2018 11:40
[2018-10-09 12:00] VITALS: BP 127/65
--- NOTE | 2018-10-09 13:51 | General Progress Note ---
Progress Note Progress Note Surgery: pain improved. some abdominal cramping. no n/v/f/c. +flatus wounds c/d/i ambulatory labs okay -diet as tolerated -abx d/c planning Shola Alaniz Oct 09, 2018 13:51
[2018-10-09 15:56] VITALS: BP 112/64
[2018-10-09 20:00] VITALS: BP 106/51
[2018-10-09] MEDS: Tamsulosin 0.4mg cap ORAL SCH (20:26)
[2018-10-10] MEDS: Morphine Sulfate 2mg/ml Inj IVP PRN (00:01)
[2018-10-10 00:27] VITALS: BP 112/55
--- NOTE | 2018-10-10 02:32 | Progress Note ---
DATE: 10/09/2018 HISTORY OF PRESENT ILLNESS: This is a 68-year-old patient, seen in my office abdominal pain, possible GI bleed, and abnormal labs, but he is still very confused and disorganized with mood lability, confusion, and disorganized thought process that is why his attending physician has requested daily psychiatric consultation. His cognition has declined below baseline secondary to stress of medical illness. MENTAL STATUS EXAMINATION: This is a 68-year-old male. Appearance is disheveled. Attitude, irritable and agitated. Affect, guarded and restricted. Intellect poor. Mood, depressed and anxious. Motor activity, psychomotor agitation. Attention span is poor. Orientation x2. Speech is pressured. Thought process, disorganized and illogical. Thought content, no auditory hallucinations or paranoid delusions. Insight and judgment is poor. DIAGNOSIS: Schizoaffective, bipolar type. PLAN: Treat him with Geodon 20 mg twice a day, Seroquel 50 mg twice a day, and Depakote 500 mg twice a day . Twenty minutes of cognitive behavioral therapy was provided to help the patient identify his automatic negative thoughts and to help him convert those negative thoughts to more positive thinking to reduce depression and anxiety. Chart reviewed. Discussed with staff. Seen and assessed in his room. Shiraz Angel M.D. DR: Symone JOB#: [id number] CC:
[2018-10-10 04:00] VITALS: BP 117/61
[2018-10-10] MEDS: NovoLOG Insulin Flexpen SUBQ SCH ×4 (05:46→21:02)
[2018-10-10 07:23] LABS: BASOPHILS % (AUTO) 0.6 % (0.0-2.0); EOSINOPHILS % (AUTO) 1.4 % (0.0-3.0); HEMATOCRIT 30.7 % (42.0-52.0); HEMOGLOBIN 10.4 G/DL (14.2-18.0); LYMPHOCYTES % (AUTO) 11.3 % (20.0-45.0); MEAN CORPUSCULAR VOLUME 90 FL (80-99); MONOCYTES % (AUTO) 12.7 % (1.0-10.0); NEUTROPHILS % (AUTO) 74.1 % (45.0-75.0); PLATELET COUNT 168 K/UL (150-450); RED BLOOD COUNT 3.42 M/UL (4.70-6.10); RED CELL DISTRIBUTION WIDTH 10.9 % (11.6-14.8); WHITE BLOOD COUNT 6.9 K/UL (4.8-10.8)
[2018-10-10 07:30] LABS: ALANINE AMINOTRANSFERASE 63 U/L (12-78); ALBUMIN 1.9 G/DL (3.4-5.0); ALBUMIN/GLOBULIN RATIO 0.4 (1.0-2.7); ALKALINE PHOSPHATASE 122 U/L (46-116); ANION GAP 6 mmol/L (5-15); ASPARTATE AMINO TRANSFERASE 17 U/L (15-37); BILIRUBIN,TOTAL 0.8 MG/DL (0.2-1.0); BLOOD UREA NITROGEN 25 mg/dL (7-18); CALCIUM 8.7 MG/DL (8.5-10.1); CARBON DIOXIDE 30 MMOL/L (21-32); CHLORIDE 107 MMOL/L (98-107); CREATININE 1.1 MG/DL (0.55-1.30); POTASSIUM 4.1 MMOL/L (3.5-5.1); SODIUM 143 MMOL/L (136-145)
[2018-10-10 08:00] VITALS: BP 114/63
--- NOTE | 2018-10-10 08:06 | General Progress Note ---
Assessment/Plan Problem List: (1) HTN (hypertension) ICD Codes: I10 - Essential (primary) hypertension SNOMED: 99826596 (2) Diabetes ICD Codes: E11.9 - Type 2 diabetes mellitus without complications SNOMED: 48477822 (3) COPD (chronic obstructive pulmonary disease) ICD Codes: J44.9 - Chronic obstructive pulmonary disease, unspecified SNOMED: 24284552 (4) Psychiatric disorder ICD Codes: F99 - Mental disorder, not otherwise specified SNOMED: 23488439, 419376103 (5) Parkinson disease ICD Codes: G20 - Parkinson's disease SNOMED: 11771916 (6) UGI bleed ICD Codes: K92.2 - Gastrointestinal hemorrhage, unspecified SNOMED: 75979316 (7) Weak ICD Codes: R53.1 - Weakness SNOMED: 81589742 (8) Abdominal pain ICD Codes: R10.9 - Unspecified abdominal pain SNOMED: 47259363 Qualifiers: Qualified Codes: R10.31 - Right lower quadrant pain (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 SNOMED: 74266614 Status: stable, progressing Assessment/Plan adv diet ot pt diet gi f/u sx f/u cbc bmp am dc plan if clear by sx Subjective Constitutional: Reports: weakness Allergies: Coded Allergies: No Known Allergies (Unverified , 12/26/17) All Systems: reviewed and negative except above Subjective o2nc sleeping Objective Last 24 Hour Vital Signs Date Time Temp Pulse Resp B/P (MAP) Pulse Ox O2 Delivery O2 Flow Rate FiO2 10/10/18 04:00 98.9 79 18 117/61 (79) 97 10/10/18 00:33 98.1 10/10/18 00:27 98.1 88 18 112/55 (74) 99 10/09/18 21:14 Nasal Cannula 3.0 10/09/18 20:00 99.2 90 19 106/51 (69) 96 10/09/18 15:56 97.4 89 18 112/64 (80) 99 10/09/18 12:00 99.0 87 22 127/65 (85) 99 10/09/18 09:00 Nasal Cannula 3.0 10/09/18 08:27 88 132/62 10/09/18 08:26 132/62 Intake and Output 10/09/18 10/10/18 18:59 06:59 Intake Total 120 ml 120 ml Output Total 700 ml Balance 120 ml -580 ml Intake Oral 120 ml 120 ml Output Urine Total 700 ml # Voids 1 Laboratory Tests 10/10/18 06:00: White Blood Count 6.9, Red Blood Count 3.42L, Hemoglobin 10.4L, Hematocrit 30.7L , Mean Corpuscular Volume 90, Mean Corpuscular Hemoglobin 30.5, Mean Corpuscular Hemoglobin Concent 34.0, Red Cell Distribution Width 10.9L, Platelet Count 168, Mean Platelet Volume 4.7L, Neutrophils (%) (Auto) 74.1, Lymphocytes (%) (Auto) 11.3L, Monocytes (%) (Auto) 12.7H, Eosinophils (%) (Auto ) 1.4, Basophils (%) (Auto) 0.6, Sodium Level 143, Potassium Level 4.1, Chloride Level 107, Carbon Dioxide Level 30, Anion Gap 6, Blood Urea Nitrogen 25H, Creatinine 1.1, Estimat Glomerular Filtration Rate > 60, Glucose Level 144H , Calcium Level 8.7, Total Bilirubin 0.8, Aspartate Amino Transf (AST/SGOT) 17, Alanine Aminotransferase (ALT/SGPT) 63, Alkaline Phosphatase 122H, Total Protein 6.4, Albumin 1.9L, Globulin 4.5, Albumin/Globulin Ratio 0.4L Height (Feet): 6 Height (Inches): 2.00 Weight (Pounds): 204 General Appearance: lethargic EENT: normal ENT inspection Neck: normal alignment Cardiovascular: normal peripheral pulses, normal rate, regular rhythm Respiratory/Chest: chest wall non-tender, lungs clear, normal breath sounds Abdomen: normal bowel sounds, non tender, soft Extremities: normal inspection Edema: no edema noted Arm (L), no edema noted Arm (R), no edema noted Leg (L), no edema noted Leg (R), no edema noted Pedal (L), no edema noted Pedal (R), no edema noted Generalized Neurologic: responsive, motor weakness Skin: normal pigmentation, warm/dry Sharif Sanabria DO Oct 10, 2018 08:05
[2018-10-10] MEDS: Ziprasidone 20mg cap ORAL SCH ×2 (08:46→17:01)
[2018-10-10] MEDS: Losartan 50mg tab ORAL SCH (08:46)
[2018-10-10] MEDS: Docusate 100mg cap ORAL SCH ×2 (08:46→17:01)
[2018-10-10] MEDS: Depakote ER 500mg tab ORAL SCH ×2 (08:47→21:01)
--- NOTE | 2018-10-10 09:07 | General Progress Note ---
Assessment/Plan Problem List: (1) Cholecystitis ICD Codes: K81.9 - Cholecystitis, unspecified SNOMED: 04827915 (2) UGI bleed ICD Codes: K92.2 - Gastrointestinal hemorrhage, unspecified SNOMED: 48376272 (3) Abdominal pain ICD Codes: R10.9 - Unspecified abdominal pain SNOMED: 57692572 Qualifiers: Qualified Codes: R10.31 - Right lower quadrant pain (4) HTN (hypertension) ICD Codes: I10 - Essential (primary) hypertension SNOMED: 29902796 (5) Diabetes ICD Codes: E11.9 - Type 2 diabetes mellitus without complications SNOMED: 35284985 (6) Psychiatric disorder ICD Codes: F99 - Mental disorder, not otherwise specified SNOMED: 81879991, 469860081 Assessment/Plan s/p EGD >> gastritis, bx negative for H. Pylori s/p lap melissa, fu surgical recs pain mgmt zofran prn fu labs Subjective ROS Limited/Unobtainable: No Allergies: Coded Allergies: No Known Allergies (Unverified , 12/26/17) Objective Last 24 Hour Vital Signs Date Time Temp Pulse Resp B/P (MAP) Pulse Ox O2 Delivery O2 Flow Rate FiO2 10/10/18 08:46 114/63 10/10/18 08:46 87 114/63 10/10/18 08:00 98.2 87 20 114/63 (80) 98 10/10/18 04:00 98.9 79 18 117/61 (79) 97 10/10/18 00:33 98.1 10/10/18 00:27 98.1 88 18 112/55 (74) 99 10/09/18 21:14 Nasal Cannula 3.0 10/09/18 20:00 99.2 90 19 106/51 (69) 96 10/09/18 15:56 97.4 89 18 112/64 (80) 99 10/09/18 12:00 99.0 87 22 127/65 (85) 99 Intake and Output 10/09/18 10/10/18 18:59 06:59 Intake Total 120 ml 120 ml Output Total 700 ml Balance 120 ml -580 ml Intake Oral 120 ml 120 ml Output Urine Total 700 ml # Voids 1 Laboratory Tests 10/10/18 06:00: White Blood Count 6.9, Red Blood Count 3.42L, Hemoglobin 10.4L, Hematocrit 30.7L , Mean Corpuscular Volume 90, Mean Corpuscular Hemoglobin 30.5, Mean Corpuscular Hemoglobin Concent 34.0, Red Cell Distribution Width 10.9L, Platelet Count 168, Mean Platelet Volume 4.7L, Neutrophils (%) (Auto) 74.1, Lymphocytes (%) (Auto) 11.3L, Monocytes (%) (Auto) 12.7H, Eosinophils (%) (Auto ) 1.4, Basophils (%) (Auto) 0.6, Sodium Level 143, Potassium Level 4.1, Chloride Level 107, Carbon Dioxide Level 30, Anion Gap 6, Blood Urea Nitrogen 25H, Creatinine 1.1, Estimat Glomerular Filtration Rate > 60, Glucose Level 144H , Calcium Level 8.7, Total Bilirubin 0.8, Aspartate Amino Transf (AST/SGOT) 17, Alanine Aminotransferase (ALT/SGPT) 63, Alkaline Phosphatase 122H, Total Protein 6.4, Albumin 1.9L, Globulin 4.5, Albumin/Globulin Ratio 0.4L Height (Feet): 6 Height (Inches): 2.00 Weight (Pounds): 204 General Appearance: no apparent distress EENT: normal ENT inspection Neck: supple Cardiovascular: normal rate Respiratory/Chest: decreased breath sounds Abdomen: normal bowel sounds, non tender, soft Extremities: non-tender Goran Valdez MD Oct 10, 2018 09:07
--- NOTE | 2018-10-10 09:13 | Pulmonology Progress Note ---
Assessment/Plan Assessment/Plan ASSESSMENT upper GI bleeding status post EGD with biopsy gastritis anemia acute cholecystitis status post laparoscopic cholecystectomy with umbilical hernia repair COPD hypertension diabetes schizoaffective disorder bipolar type PLAN of CARE [facility] floor IVF HIDA was + acute melissa , s/p lap melissa surgery follows tolerates diet IV abx pain management bowel regimen , had BM drop in HH this am monitor HH with goal to keep Hgb above 7 anemia w/up noted Venofer x 1 PT/OT IS while in the bed O2 HHN prn BP --> ARB BS--> Januvia + SSI prn LFT trending down : AST WNL, ALT with trend down GI follows s/p EGD with biopsy , which revealed mild to moderate chronic gastritis , no evidence of H. pylori GI prophylaxis monitor HH with goal to keep Hgb above 7- latest 12.2/ 24.8 psych follows, fup with psych recs dc planning case discussed and evaluated by supervising physician Subjective Allergies: Coded Allergies: No Known Allergies (Unverified , 12/26/17) Subjective pain controlled tolerated diet no SOB, no CP drop in HH this am had BM yesterday working with PT Objective Last 24 Hour Vital Signs Date Time Temp Pulse Resp B/P (MAP) Pulse Ox O2 Delivery O2 Flow Rate FiO2 10/10/18 08:46 114/63 10/10/18 08:46 87 114/63 10/10/18 08:00 98.2 87 20 114/63 (80) 98 10/10/18 04:00 98.9 79 18 117/61 (79) 97 10/10/18 00:33 98.1 10/10/18 00:27 98.1 88 18 112/55 (74) 99 10/09/18 21:14 Nasal Cannula 3.0 10/09/18 20:00 99.2 90 19 106/51 (69) 96 10/09/18 15:56 97.4 89 18 112/64 (80) 99 10/09/18 12:00 99.0 87 22 127/65 (85) 99 Intake and Output 10/09/18 10/10/18 18:59 06:59 Intake Total 120 ml 120 ml Output Total 700 ml Balance 120 ml -580 ml Intake Oral 120 ml 120 ml Output Urine Total 700 ml # Voids 1 Objective General Appearance: no acute distress, awake, alert, responsive HEENT: normocephalic, atraumatic, anicteric Respiratory/Chest: no respiratory distress, no accessory muscle use Cardiovascular: normal rate, no JVD Abdomen: normal bowel sounds, soft, non tender - few lap incisions clean Extremities: no edema, pedal pulses normal 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, no motor/sensory deficits, alert, oriented x 3, responsive, normal mood/affect Musculoskeletal: normal muscle bulk Laboratory Tests 10/10/18 06:00: White Blood Count 6.9, Red Blood Count 3.42L, Hemoglobin 10.4L, Hematocrit 30.7L , Mean Corpuscular Volume 90, Mean Corpuscular Hemoglobin 30.5, Mean Corpuscular Hemoglobin Concent 34.0, Red Cell Distribution Width 10.9L, Platelet Count 168, Mean Platelet Volume 4.7L, Neutrophils (%) (Auto) 74.1, Lymphocytes (%) (Auto) 11.3L, Monocytes (%) (Auto) 12.7H, Eosinophils (%) (Auto ) 1.4, Basophils (%) (Auto) 0.6, Sodium Level 143, Potassium Level 4.1, Chloride Level 107, Carbon Dioxide Level 30, Anion Gap 6, Blood Urea Nitrogen 25H, Creatinine 1.1, Estimat Glomerular Filtration Rate > 60, Glucose Level 144H , Calcium Level 8.7, Total Bilirubin 0.8, Aspartate Amino Transf (AST/SGOT) 17, Alanine Aminotransferase (ALT/SGPT) 63, Alkaline Phosphatase 122H, Total Protein 6.4, Albumin 1.9L, Globulin 4.5, Albumin/Globulin Ratio 0.4L Current Medications Medications (Trade) Dose Ordered Sig/Deon Route PRN Reason Start Time Stop Time Status Last Admin Dose Admin Acetaminophen (Tylenol) 650 mg Q4H PRN ORAL fever 10/04/18 13:00 11/03/18 12:59 10/09/18 00:09 Al Hydroxide/Mg Hydroxide (Mylanta) 15 ml Q6H PRN ORAL DYSPEPSIA 10/07/18 14:00 11/06/18 13:59 Amlodipine Besylate (Norvasc) 5 mg DAILY ORAL 10/05/18 09:00 11/04/18 08:59 10/10/18 08:46 Dextrose (Dextrose 50%) 25 ml Q30M PRN IV Hypoglycemia 10/04/18 13:15 11/03/18 13:06 Dextrose (Dextrose 50%) 50 ml Q30M PRN IV hypoglycemia 10/04/18 13:15 11/03/18 13:14 Diphenhydramine HCl (Benadryl) 25 mg Q8H PRN ORAL Itching/Pruritis 10/07/18 14:00 11/06/18 13:59 Divalproex Sodium (Depakote ER) 500 mg EVERY 12 HOURS ORAL 10/04/18 21:00 11/03/18 20:59 10/10/18 08:47 Docusate Sodium (Colace) 100 mg TWICE A DAY ORAL 10/07/18 18:00 11/06/18 17:59 10/10/18 08:46 Finasteride (Proscar) 5 mg DAILY ORAL 10/05/18 09:00 11/04/18 08:59 10/10/18 08:46 Insulin Aspart (NovoLOG) BEFORE MEALS AND HS SUBQ 10/04/18 16:30 11/03/18 16:29 10/10/18 05:46 Ketorolac Tromethamine (Toradol 30mg) 15 mg Q6H PRN IV Breakthrough Pain 10/08/18 08:00 10/12/18 13:59 Lorazepam (Ativan) 1 mg Q6H PRN ORAL For Anxiety 10/07/18 03:45 10/14/18 03:44 Losartan Potassium (Cozaar) 50 mg DAILY ORAL 10/05/18 09:00 11/04/18 08:59 10/10/18 08:46 Morphine Sulfate (Morphine Sulfate) 1 mg Q4H PRN IVP pain scale 1-3 10/07/18 14:00 10/14/18 13:59 Morphine Sulfate (Morphine Sulfate) 2 mg Q4H PRN IVP Moderate Pain (Pain Scale 4-6) 10/08/18 14:00 10/15/18 13:59 10/10/18 00:01 Morphine Sulfate (Morphine Sulfate) 4 mg Q4H PRN IVP pain score 7-10 10/07/18 14:00 10/14/18 13:59 10/08/18 22:33 Nitroglycerin (Ntg) 0.4 mg Q5M X 3 DOSES PRN SL Prn Chest Pain 10/04/18 13:00 11/03/18 12:59 Ondansetron HCl (Zofran) 4 mg Q6H PRN IVP Nausea & Vomiting 10/04/18 13:00 11/03/18 12:59 10/07/18 18:39 Polyethylene Glycol (Miralax) 17 gm HSPRN PRN ORAL Constipation 10/04/18 13:00 11/03/18 12:59 Quetiapine Fumarate (SEROquel) 50 mg BID ORAL 10/04/18 18:00 11/03/18 17:59 10/10/18 08:46 Sitagliptin Phosphate (Januvia) 100 mg DAILY ORAL 10/05/18 09:00 11/04/18 08:59 10/10/18 08:46 Tamsulosin HCl (Flomax) 0.4 mg BEDTIME ORAL 10/04/18 21:00 11/03/18 20:59 10/08/18 20:13 Temazepam (Restoril) 7.5 mg HSPRN PRN ORAL Insomnia 10/07/18 14:00 10/14/18 13:59 Ziprasidone (Geodon) 20 mg TWICE A DAY ORAL 10/04/18 18:00 11/03/18 17:59 10/10/18 08:46 Dara Ojeda [employer] Oct 10, 2018 09:13
[2018-10-10 09:58] LABS: FERRITIN 283 NG/ML (8-388)
[2018-10-10 10:15] LABS: % IRON SATURATION 9 % (15-50); IRON 14 ug/dL (50-175); TOTAL IRON BINDING CAPACITY 156 ug/dL (250-450)
[2018-10-10 11:49] VITALS: BP 131/65
[2018-10-10] MEDS ORDERED: Iron Sucrose 100 MG in NS 55 ML IV ONE (12:00)
[2018-10-10 16:00] VITALS: BP 109/77
[2018-10-10 19:48] VITALS: BP 121/64
[2018-10-10] MEDS: Tamsulosin 0.4mg cap ORAL SCH (21:01)
[2018-10-11] VITALS: BP 123/64
--- NOTE | 2018-10-11 02:16 | Consultation ---
DATE OF CONSULTATION: 10/10/2018 CONSULTING PHYSICIAN: Shiraz Angel M.D. HISTORY OF PRESENT ILLNESS: This is a 68-year-old male patient who still has some confusion, disorganized thought process, mood lability that is why he does require acute psychiatric inpatient treatment at this time. As far as his diagnosis is schizoaffective, bipolar type and continued GI bleeding and abnormal labs that is why his attending has requested daily psychiatric consultation. As far as the patient's diagnosis is paranoid schizophrenia, acute exacerbation schizoaffective, bipolar type, plan is to treat this patient with psychotropic medication regimen consisting of Depakote 500 mg twice a day, Seroquel 50 mg twice a day, and Geodon 20 mg twice a day. MENTAL STATUS EXAMINATION: The patient is a 68-year-old male. Appearance is disheveled. Attitude, irritable and agitated. Affect guarded and restricted. Intellect poor. Mood depressed and anxious. Motor activity, psychomotor agitation. Attention span is poor. Orientation x2. Speech is pressured. Thought process, disorganized and illogical. Insight and judgment are poor. DIAGNOSIS: Schizoaffective, bipolar type. PLAN: Plan is to treat him with Geodon 20 mg twice a day, Seroquel 50 mg twice a day, and Depakote 500 mg twice a day to stabilize his mood. Provided 20 minutes of cognitive behavioral therapy to help identify his automatic negative thoughts and to help with negative thoughts to more positive thoughts to reduce depression, anxiety, and suicidality. Chart reviewed and discussed with staff. Seen and assessed in his room. Twenty minutes of cognitive behavioral therapy provided. Shiraz Angel M.D. DR: LAKISHA JOB#: [id number] CC:
[2018-10-11 04:00] VITALS: BP 125/64
[2018-10-11] MEDS: NovoLOG Insulin Flexpen SUBQ SCH ×3 (05:56→17:06)
[2018-10-11 08:00] VITALS: BP 122/66
[2018-10-11 08:35] LABS: BASOPHILS % (AUTO) 1.4 % (0.0-2.0); EOSINOPHILS % (AUTO) 3.6 % (0.0-3.0); HEMATOCRIT 34.6 % (42.0-52.0); HEMOGLOBIN 11.8 G/DL (14.2-18.0); LYMPHOCYTES % (AUTO) 20.7 % (20.0-45.0); MEAN CORPUSCULAR VOLUME 90 FL (80-99); MONOCYTES % (AUTO) 10.9 % (1.0-10.0); NEUTROPHILS % (AUTO) 63.3 % (45.0-75.0); PLATELET COUNT 205 K/UL (150-450); RED BLOOD COUNT 3.86 M/UL (4.70-6.10); RED CELL DISTRIBUTION WIDTH 11.1 % (11.6-14.8); WHITE BLOOD COUNT 3.7 K/UL (4.8-10.8)
[2018-10-11] MEDS: Docusate 100mg cap ORAL SCH ×2 (08:43→17:03)
[2018-10-11] MEDS: Ziprasidone 20mg cap ORAL SCH ×2 (08:43→17:03)
[2018-10-11] MEDS: Losartan 50mg tab ORAL SCH (08:44)
[2018-10-11] MEDS: Depakote ER 500mg tab ORAL SCH (08:44)
[2018-10-11 08:45] LABS: ANION GAP 7 mmol/L (5-15); BLOOD UREA NITROGEN 28 mg/dL (7-18); CARBON DIOXIDE 29 MMOL/L (21-32); CHLORIDE 109 MMOL/L (98-107); CREATININE 1.1 MG/DL (0.55-1.30); SODIUM 144 MMOL/L (136-145)
--- NOTE | 2018-10-11 10:36 | GI Progress Note ---
Assessment/Plan Problems: (1) Cholecystitis ICD Codes: K81.9 - Cholecystitis, unspecified SNOMED: 92213370 (2) Abdominal pain ICD Codes: R10.9 - Unspecified abdominal pain SNOMED: 18989850 Qualifiers: Qualified Codes: R10.31 - Right lower quadrant pain (3) Elevated LFTs ICD Codes: R94.5 - Abnormal results of liver function studies SNOMED: 353613267, 329897524 (4) Fever ICD Codes: R50.9 - Fever, unspecified SNOMED: 350661808 (5) Pancytopenia ICD Codes: D61.818 - Other pancytopenia SNOMED: 862350789 (6) Failure to thrive SNOMED: 05312599 Status: stable Status Narrative Discussed with Dr. Valdez. Assessment/Plan patient reported dark emesis >> s/p EGD >> gastritis, bx negative for H. Pylori Hgb drop over period of 4 days, now stable OB stool still pending s/p lap melissa, fu surgical recs pain mgmt zofran prn fu labs The patient was seen and examined at bedside and all new and available data was reviewed in the patients chart. I agree with the above findings, impression and plan. (Patient seen earlier today. Signature stamp does not reflect patient encounter time.). - Goran Valdez MD Subjective Gastrointestinal/Abdominal: Reports: no symptoms Objective Last 24 Hour Vital Signs Date Time Temp Pulse Resp B/P (MAP) Pulse Ox O2 Delivery O2 Flow Rate FiO2 10/11/18 09:00 Room Air 10/11/18 08:44 122/66 10/11/18 08:44 68 122/66 10/11/18 08:00 98.7 68 20 122/66 (84) 99 10/11/18 04:00 98.2 68 19 125/64 (84) 98 10/11/18 00:00 98.3 72 19 123/64 (83) 95 10/10/18 20:15 Nasal Cannula 3.0 10/10/18 19:48 98.2 84 18 121/64 (83) 97 10/10/18 16:00 97.3 66 21 109/77 (88) 99 10/10/18 11:49 97.9 95 20 131/65 (87) 98 Intake and Output 10/10/18 10/11/18 18:59 06:59 Intake Total 780 ml 240 ml Balance 780 ml 240 ml Intake Oral 720 ml 240 ml IV Total 60 ml # Voids 1 3 # Bowel Movements 1 Laboratory Tests Test 10/11/18 07:20 10/11/18 08:15 Stool Occult Blood Pending White Blood Count 3.7 K/UL (4.8-10.8) L Red Blood Count 3.86 M/UL (4.70-6.10) L Hemoglobin 11.8 G/DL (14.2-18.0) L Hematocrit 34.6 % (42.0-52.0) L Mean Corpuscular Volume 90 FL (80-99) Mean Corpuscular Hemoglobin 30.5 PG (27.0-31.0) Mean Corpuscular Hemoglobin Concent 34.0 G/DL (32.0-36.0) Red Cell Distribution Width 11.1 % (11.6-14.8) L Platelet Count 205 K/UL (150-450) Mean Platelet Volume 5.2 FL (6.5-10.1) L Neutrophils (%) (Auto) 63.3 % (45.0-75.0) Lymphocytes (%) (Auto) 20.7 % (20.0-45.0) Monocytes (%) (Auto) 10.9 % (1.0-10.0) H Eosinophils (%) (Auto) 3.6 % (0.0-3.0) H Basophils (%) (Auto) 1.4 % (0.0-2.0) Sodium Level 144 MMOL/L (136-145) Potassium Level 4.0 MMOL/L (3.5-5.1) Chloride Level 109 MMOL/L (98-107) H Carbon Dioxide Level 29 MMOL/L (21-32) Anion Gap 7 mmol/L (5-15) Blood Urea Nitrogen 28 mg/dL (7-18) H Creatinine 1.1 MG/DL (0.55-1.30) Estimat Glomerular Filtration Rate > 60 mL/min (>60) Glucose Level 148 MG/DL (74-106) H Calcium Level 9.0 MG/DL (8.5-10.1) Height (Feet): 6 Height (Inches): 2.00 Weight (Pounds): 204 General Appearance: WD/WN, no apparent distress, alert Cardiovascular: normal rate Respiratory/Chest: normal breath sounds, no respiratory distress Abdominal Exam: normal bowel sounds, non tender, soft Extremities: normal range of motion, non-tender Luis Caballero NP Oct 11, 2018 10:36
[2018-10-11 12:13] VITALS: BP 127/68
--- NOTE | 2018-10-11 12:58 | General Progress Note ---
Assessment/Plan Problem List: (1) HTN (hypertension) ICD Codes: I10 - Essential (primary) hypertension SNOMED: 60450679 (2) Diabetes ICD Codes: E11.9 - Type 2 diabetes mellitus without complications SNOMED: 21664122 (3) COPD (chronic obstructive pulmonary disease) ICD Codes: J44.9 - Chronic obstructive pulmonary disease, unspecified SNOMED: 27818744 (4) Psychiatric disorder ICD Codes: F99 - Mental disorder, not otherwise specified SNOMED: 77546681, 714495964 (5) Parkinson disease ICD Codes: G20 - Parkinson's disease SNOMED: 80928661 (6) UGI bleed ICD Codes: K92.2 - Gastrointestinal hemorrhage, unspecified SNOMED: 08259870 (7) Weak ICD Codes: R53.1 - Weakness SNOMED: 84374843 (8) Abdominal pain ICD Codes: R10.9 - Unspecified abdominal pain SNOMED: 77561314 Qualifiers: Qualified Codes: R10.31 - Right lower quadrant pain (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 SNOMED: 74506866 Status: stable, progressing Assessment/Plan adv diet ot pt diet gi f/u sx f/u dc if clear Subjective Constitutional: Reports: weakness Allergies: Coded Allergies: No Known Allergies (Unverified , 12/26/17) All Systems: reviewed and negative except above Subjective calm sleepy Objective Last 24 Hour Vital Signs Date Time Temp Pulse Resp B/P (MAP) Pulse Ox O2 Delivery O2 Flow Rate FiO2 10/11/18 12:13 97.9 73 20 127/68 (87) 96 10/11/18 09:00 Room Air 10/11/18 08:44 122/66 10/11/18 08:44 68 122/66 10/11/18 08:00 98.7 68 20 122/66 (84) 99 10/11/18 04:00 98.2 68 19 125/64 (84) 98 10/11/18 00:00 98.3 72 19 123/64 (83) 95 10/10/18 20:15 Nasal Cannula 3.0 10/10/18 19:48 98.2 84 18 121/64 (83) 97 10/10/18 16:00 97.3 66 21 109/77 (88) 99 Intake and Output 10/10/18 10/11/18 18:59 06:59 Intake Total 780 ml 240 ml Balance 780 ml 240 ml Intake Oral 720 ml 240 ml IV Total 60 ml # Voids 1 3 # Bowel Movements 1 Laboratory Tests 10/11/18 07:20: Stool Occult Blood Negative 10/11/18 08:15: White Blood Count 3.7L, Red Blood Count 3.86L, Hemoglobin 11.8L, Hematocrit 34.6L, Mean Corpuscular Volume 90, Mean Corpuscular Hemoglobin 30.5, Mean Corpuscular Hemoglobin Concent 34.0, Red Cell Distribution Width 11.1L, Platelet Count 205, Mean Platelet Volume 5.2L, Neutrophils (%) (Auto) 63.3, Lymphocytes (%) (Auto) 20.7, Monocytes (%) (Auto) 10.9H, Eosinophils (%) (Auto) 3.6H, Basophils (%) (Auto) 1.4, Sodium Level 144, Potassium Level 4.0, Chloride Level 109H, Carbon Dioxide Level 29, Anion Gap 7, Blood Urea Nitrogen 28H, Creatinine 1.1, Estimat Glomerular Filtration Rate > 60, Glucose Level 148H, Calcium Level 9.0 Height (Feet): 6 Height (Inches): 2.00 Weight (Pounds): 204 General Appearance: lethargic EENT: normal ENT inspection Neck: normal alignment Cardiovascular: normal peripheral pulses, normal rate, regular rhythm Respiratory/Chest: chest wall non-tender, lungs clear, normal breath sounds Abdomen: normal bowel sounds, non tender, soft Extremities: normal inspection Edema: no edema noted Arm (L), no edema noted Arm (R), no edema noted Leg (L), no edema noted Leg (R), no edema noted Pedal (L), no edema noted Pedal (R), no edema noted Generalized Neurologic: responsive, motor weakness Skin: normal pigmentation, warm/dry Sharif Sanabria DO Oct 11, 2018 12:58
--- NOTE | 2018-10-11 14:10 | Infectious Diseases Prog Note ---
Assessment/Plan Assessment/Plan ASSESSMENT: The patient is a 68-year-old male with: Fever, low grade ( post op) Normal white blood cells. Acute cholecystitis 10/07 SP cholecystectomy ( Hydrops, no perforation) Transaminitis, improving Hepatitis panel: unremarkable HIDA scan Cystic duct: obstruction, suggestive of acute cholecystitis Ultrasound of the abdomen : Cholelithiasis EGD : Gastritis 10/05/2018. Diabetes. Schizoaffective disorder. COPD. Parkinson disease. Failure to thrive. History of left arm surgery PLAN: monitor pt off of AB Rx 10/08 SP V Zosyn day # 3 Monitor CBC. Monitor BMP. Monitor liver function Subjective Allergies: Coded Allergies: No Known Allergies (Unverified , 12/26/17) Subjective Comfortable Objective Vital Signs Last 24 Hour Vital Signs Date Time Temp Pulse Resp B/P (MAP) Pulse Ox O2 Delivery O2 Flow Rate FiO2 10/11/18 12:13 97.9 73 20 127/68 (87) 96 10/11/18 09:00 Room Air 10/11/18 08:44 122/66 10/11/18 08:44 68 122/66 10/11/18 08:00 98.7 68 20 122/66 (84) 99 10/11/18 04:00 98.2 68 19 125/64 (84) 98 10/11/18 00:00 98.3 72 19 123/64 (83) 95 10/10/18 20:15 Nasal Cannula 3.0 10/10/18 19:48 98.2 84 18 121/64 (83) 97 10/10/18 16:00 97.3 66 21 109/77 (88) 99 Height (Feet): 6 Height (Inches): 2.00 Weight (Pounds): 204 HEENT: anicteric Respiratory/Chest: no respiratory distress Cardiovascular: normal rate Abdomen: soft, non tender Laboratory Tests Test 10/11/18 07:20 10/11/18 08:15 Stool Occult Blood Negative (NEGATIVE) White Blood Count 3.7 K/UL (4.8-10.8) L Red Blood Count 3.86 M/UL (4.70-6.10) L Hemoglobin 11.8 G/DL (14.2-18.0) L Hematocrit 34.6 % (42.0-52.0) L Mean Corpuscular Volume 90 FL (80-99) Mean Corpuscular Hemoglobin 30.5 PG (27.0-31.0) Mean Corpuscular Hemoglobin Concent 34.0 G/DL (32.0-36.0) Red Cell Distribution Width 11.1 % (11.6-14.8) L Platelet Count 205 K/UL (150-450) Mean Platelet Volume 5.2 FL (6.5-10.1) L Neutrophils (%) (Auto) 63.3 % (45.0-75.0) Lymphocytes (%) (Auto) 20.7 % (20.0-45.0) Monocytes (%) (Auto) 10.9 % (1.0-10.0) H Eosinophils (%) (Auto) 3.6 % (0.0-3.0) H Basophils (%) (Auto) 1.4 % (0.0-2.0) Sodium Level 144 MMOL/L (136-145) Potassium Level 4.0 MMOL/L (3.5-5.1) Chloride Level 109 MMOL/L (98-107) H Carbon Dioxide Level 29 MMOL/L (21-32) Anion Gap 7 mmol/L (5-15) Blood Urea Nitrogen 28 mg/dL (7-18) H Creatinine 1.1 MG/DL (0.55-1.30) Estimat Glomerular Filtration Rate > 60 mL/min (>60) Glucose Level 148 MG/DL (74-106) H Calcium Level 9.0 MG/DL (8.5-10.1) Current Medications Medications (Trade) Dose Ordered Sig/Deon Route PRN Reason Start Time Stop Time Status Last Admin Dose Admin Acetaminophen (Tylenol) 650 mg Q4H PRN ORAL fever 10/04/18 13:00 11/03/18 12:59 10/09/18 00:09 Al Hydroxide/Mg Hydroxide (Mylanta) 15 ml Q6H PRN ORAL DYSPEPSIA 10/07/18 14:00 11/06/18 13:59 Amlodipine Besylate (Norvasc) 5 mg DAILY ORAL 10/05/18 09:00 11/04/18 08:59 10/11/18 08:44 Dextrose (Dextrose 50%) 25 ml Q30M PRN IV Hypoglycemia 10/04/18 13:15 11/03/18 13:06 Dextrose (Dextrose 50%) 50 ml Q30M PRN IV hypoglycemia 10/04/18 13:15 11/03/18 13:14 Diphenhydramine HCl (Benadryl) 25 mg Q8H PRN ORAL Itching/Pruritis 10/07/18 14:00 11/06/18 13:59 Divalproex Sodium (Depakote ER) 500 mg EVERY 12 HOURS ORAL 10/04/18 21:00 11/03/18 20:59 10/11/18 08:44 Docusate Sodium (Colace) 100 mg TWICE A DAY ORAL 10/07/18 18:00 11/06/18 17:59 10/11/18 08:43 Finasteride (Proscar) 5 mg DAILY ORAL 10/05/18 09:00 11/04/18 08:59 10/11/18 08:44 Insulin Aspart (NovoLOG) BEFORE MEALS AND HS SUBQ 10/04/18 16:30 11/03/18 16:29 10/11/18 12:11 Ketorolac Tromethamine (Toradol 30mg) 15 mg Q6H PRN IV Breakthrough Pain 10/08/18 08:00 10/12/18 13:59 Lorazepam (Ativan) 1 mg Q6H PRN ORAL For Anxiety 10/07/18 03:45 10/14/18 03:44 Losartan Potassium (Cozaar) 50 mg DAILY ORAL 10/05/18 09:00 11/04/18 08:59 10/11/18 08:44 Morphine Sulfate (Morphine Sulfate) 1 mg Q4H PRN IVP pain scale 1-3 10/07/18 14:00 10/14/18 13:59 Morphine Sulfate (Morphine Sulfate) 2 mg Q4H PRN IVP Moderate Pain (Pain Scale 4-6) 10/08/18 14:00 10/15/18 13:59 10/10/18 00:01 Morphine Sulfate (Morphine Sulfate) 4 mg Q4H PRN IVP pain score 7-10 10/07/18 14:00 10/14/18 13:59 10/08/18 22:33 Nitroglycerin (Ntg) 0.4 mg Q5M X 3 DOSES PRN SL Prn Chest Pain 10/04/18 13:00 11/03/18 12:59 Ondansetron HCl (Zofran) 4 mg Q6H PRN IVP Nausea & Vomiting 10/04/18 13:00 11/03/18 12:59 10/07/18 18:39 Polyethylene Glycol (Miralax) 17 gm HSPRN PRN ORAL Constipation 10/04/18 13:00 11/03/18 12:59 Quetiapine Fumarate (SEROquel) 50 mg BID ORAL 10/04/18 18:00 11/03/18 17:59 10/11/18 08:43 Sitagliptin Phosphate (Januvia) 100 mg DAILY ORAL 10/05/18 09:00 11/04/18 08:59 10/11/18 08:43 Tamsulosin HCl (Flomax) 0.4 mg BEDTIME ORAL 10/04/18 21:00 11/03/18 20:59 10/10/18 21:01 Temazepam (Restoril) 7.5 mg HSPRN PRN ORAL Insomnia 10/07/18 14:00 10/14/18 13:59 Ziprasidone (Geodon) 20 mg TWICE A DAY ORAL 10/04/18 18:00 11/03/18 17:59 10/11/18 08:43 Vern Vaughn MD Oct 11, 2018 14:10
--- NOTE | 2018-10-11 14:19 | Pulmonology Progress Note ---
Assessment/Plan Problems: (1) Abdominal pain (2) COPD (chronic obstructive pulmonary disease) (3) CAD (coronary artery disease) (4) Psychiatric disorder (5) Parkinson disease (6) Failure to thrive Assessment/Plan ate better no new complains all reviewed iv fluids check electrolytes symptomatic treatment respiratory treatment dc planning Subjective ROS Limited/Unobtainable: No Constitutional: Reports: no symptoms Allergies: Coded Allergies: No Known Allergies (Unverified , 12/26/17) Objective Last 24 Hour Vital Signs Date Time Temp Pulse Resp B/P (MAP) Pulse Ox O2 Delivery O2 Flow Rate FiO2 10/11/18 12:13 97.9 73 20 127/68 (87) 96 10/11/18 09:00 Room Air 10/11/18 08:44 122/66 10/11/18 08:44 68 122/66 10/11/18 08:00 98.7 68 20 122/66 (84) 99 10/11/18 04:00 98.2 68 19 125/64 (84) 98 10/11/18 00:00 98.3 72 19 123/64 (83) 95 10/10/18 20:15 Nasal Cannula 3.0 10/10/18 19:48 98.2 84 18 121/64 (83) 97 10/10/18 16:00 97.3 66 21 109/77 (88) 99 Intake and Output 10/10/18 10/11/18 19:00 07:00 Intake Total 780 ml 240 ml Balance 780 ml 240 ml Intake Oral 720 ml 240 ml IV Total 60 ml # Voids 1 3 # Bowel Movements 1 General Appearance: WD/WN HEENT: normocephalic, anicteric Respiratory/Chest: lungs clear, normal breath sounds Cardiovascular: normal peripheral pulses, regular rhythm Abdomen: soft, non tender, non distended Extremities: no cyanosis 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 normal, no motor/sensory deficits Laboratory Tests 10/11/18 07:20: Stool Occult Blood Negative 10/11/18 08:15: White Blood Count 3.7L, Red Blood Count 3.86L, Hemoglobin 11.8L, Hematocrit 34.6L, Mean Corpuscular Volume 90, Mean Corpuscular Hemoglobin 30.5, Mean Corpuscular Hemoglobin Concent 34.0, Red Cell Distribution Width 11.1L, Platelet Count 205, Mean Platelet Volume 5.2L, Neutrophils (%) (Auto) 63.3, Lymphocytes (%) (Auto) 20.7, Monocytes (%) (Auto) 10.9H, Eosinophils (%) (Auto) 3.6H, Basophils (%) (Auto) 1.4, Sodium Level 144, Potassium Level 4.0, Chloride Level 109H, Carbon Dioxide Level 29, Anion Gap 7, Blood Urea Nitrogen 28H, Creatinine 1.1, Estimat Glomerular Filtration Rate > 60, Glucose Level 148H, Calcium Level 9.0 Current Medications Medications (Trade) Dose Ordered Sig/Deon Route PRN Reason Start Time Stop Time Status Last Admin Dose Admin Acetaminophen (Tylenol) 650 mg Q4H PRN ORAL fever 10/04/18 13:00 11/03/18 12:59 10/09/18 00:09 Al Hydroxide/Mg Hydroxide (Mylanta) 15 ml Q6H PRN ORAL DYSPEPSIA 10/07/18 14:00 11/06/18 13:59 Amlodipine Besylate (Norvasc) 5 mg DAILY ORAL 10/05/18 09:00 11/04/18 08:59 10/11/18 08:44 Dextrose (Dextrose 50%) 25 ml Q30M PRN IV Hypoglycemia 10/04/18 13:15 11/03/18 13:06 Dextrose (Dextrose 50%) 50 ml Q30M PRN IV hypoglycemia 10/04/18 13:15 11/03/18 13:14 Diphenhydramine HCl (Benadryl) 25 mg Q8H PRN ORAL Itching/Pruritis 10/07/18 14:00 11/06/18 13:59 Divalproex Sodium (Depakote ER) 500 mg EVERY 12 HOURS ORAL 10/04/18 21:00 11/03/18 20:59 10/11/18 08:44 Docusate Sodium (Colace) 100 mg TWICE A DAY ORAL 10/07/18 18:00 11/06/18 17:59 10/11/18 08:43 Finasteride (Proscar) 5 mg DAILY ORAL 10/05/18 09:00 11/04/18 08:59 10/11/18 08:44 Insulin Aspart (NovoLOG) BEFORE MEALS AND HS SUBQ 10/04/18 16:30 11/03/18 16:29 10/11/18 12:11 Ketorolac Tromethamine (Toradol 30mg) 15 mg Q6H PRN IV Breakthrough Pain 10/08/18 08:00 10/12/18 13:59 Lorazepam (Ativan) 1 mg Q6H PRN ORAL For Anxiety 10/07/18 03:45 10/14/18 03:44 Losartan Potassium (Cozaar) 50 mg DAILY ORAL 10/05/18 09:00 11/04/18 08:59 10/11/18 08:44 Morphine Sulfate (Morphine Sulfate) 1 mg Q4H PRN IVP pain scale 1-3 10/07/18 14:00 10/14/18 13:59 Morphine Sulfate (Morphine Sulfate) 2 mg Q4H PRN IVP Moderate Pain (Pain Scale 4-6) 10/08/18 14:00 10/15/18 13:59 10/10/18 00:01 Morphine Sulfate (Morphine Sulfate) 4 mg Q4H PRN IVP pain score 7-10 10/07/18 14:00 10/14/18 13:59 10/08/18 22:33 Nitroglycerin (Ntg) 0.4 mg Q5M X 3 DOSES PRN SL Prn Chest Pain 10/04/18 13:00 11/03/18 12:59 Ondansetron HCl (Zofran) 4 mg Q6H PRN IVP Nausea & Vomiting 10/04/18 13:00 11/03/18 12:59 10/07/18 18:39 Polyethylene Glycol (Miralax) 17 gm HSPRN PRN ORAL Constipation 10/04/18 13:00 11/03/18 12:59 Quetiapine Fumarate (SEROquel) 50 mg BID ORAL 10/04/18 18:00 11/03/18 17:59 10/11/18 08:43 Sitagliptin Phosphate (Januvia) 100 mg DAILY ORAL 10/05/18 09:00 11/04/18 08:59 10/11/18 08:43 Tamsulosin HCl (Flomax) 0.4 mg BEDTIME ORAL 10/04/18 21:00 11/03/18 20:59 10/10/18 21:01 Temazepam (Restoril) 7.5 mg HSPRN PRN ORAL Insomnia 10/07/18 14:00 10/14/18 13:59 Ziprasidone (Geodon) 20 mg TWICE A DAY ORAL 10/04/18 18:00 11/03/18 17:59 10/11/18 08:43 Ivone Mojica MD Oct 11, 2018 14:19
[2018-10-11 15:47] VITALS: BP 109/53
--- NOTE | 2018-10-11 17:46 | Progress Note ---
DATE: 10/11/2018 NOTE: POOR AUDIO SUBJECTIVE: This is a male patient, 68-year-old, who developed pain status post GI bleeding. Denies nausea, vomiting, or diarrhea. . MENTAL STATUS EXAMINATION: This is a 68-year-old male. Appearance is disheveled. Attitude, irritable and agitated. Affect, guarded and restricted. Intellect poor. Mood is depressed and anxious. Motor activity, psychomotor agitation. Attention span is poor. Orientation x2. Speech is pressured. Thought process is disorganized and illogical. Thought content, auditory hallucinations and paranoid delusions. Insight and judgment is poor. DIAGNOSIS: Schizoaffective, bipolar type. PLAN: Continue titrating the medications to stabilize his mood. Provided with 20 minutes of cognitive behavioral therapy to help identify automatic negative thoughts and help her to convert the automatic negative thoughts to more positive thoughts in order to reduce depression, anxiety, and mood lability and also continue to take psychotropic medications . Chart reviewed and discussed with staff. Seen and assessed in his room. Shiraz Angel M.D. DR: GLEN JOB#: [id number] CC:
--- NOTE | 2018-10-12 13:59 | Discharge Summary ---
Discharge Summary Discharge Summary _ DATE OF ADMISSION: 10/04/2018 DATE OF DISCHARGE: 10/11/2018 REASON FOR ADMISSION: 68 years old male with past medical history of hypertension, COPD, diabetes mellitus, bipolar disorder, presented to emergency department with vomiting and abdominal pain for the last 3 days. Patient had been vomiting dark material and had difficulty keeping anything down. Patient reported bowel movement, but denied bright red blood per rectum or dark stools. Laboratory workup revealed no leukocytosis stable hemoglobin and hematocrit. Stable electrolytes. BUN 21 creatinine 1.2 AST 202, ALT 465. Troponin negative CK 142 Lipase 109. EKG revealed normal sinus rhythm, no acute ischemic changes . Chest x-ray revealed no acute cardiopulmonary pathology. CT of the abdomen and pelvis revealed cholelithiasis, Cholecystitis was not excluded. Mild perinephric stranding nonspecific. Atherosclerotic disease. Patient started on empiric antibiotic . Patient was provided with analgesia . Patient was admitted for further management with diagnosis of upper GI bleeding , elevated LFT ,abdominal pain. CONSULTANTS: pulmonary Dr. Mojica ID specialist Dr. Vaughn GI specialist Dr. Valdez surgery Dr. Alaniz psychiatrist Dr. Angel [facility]SE: Patient admitted , started on IV fluids and continued on empiric antibiotics. Patient was kept nothing by mouth. ID and surgery consults were requested. Patient subsequently on 10/05 undergone upper endoscopy with findings of gastritis, status post biopsy, irregular Z line and small hiatal hernia. Biopsy of gastric antrum revealed mild chronic gastritis , but no Helicobacter infection. Hemoglobin and hematocrit were closely monitored with goal to keep hemoglobin above 7. Anemia workup revealed low iron. Patient received 1 dose of Venofer. Stool for occult blood was negative. Hepatitis panel was negative. LFT were closely monitored. Abdominal ultrasound revealed cholelithiasis and liver calcification. Patient continued to have nausea and unable to tolerate diet. HIDA scan demonstrated cystic duct obstruction, consistent with acute cholecystitis. Surgeon discussed findings with the patient , who consented for surgery. Patient subsequently undergone laparoscopic cholecystectomy with umbilical hernia repair on 10/07. Pain management was addressed, and pain was controlled . Bowel regimen instituted. Patient had bowel movement . Patient slowly started on diet , and was able to tolerate it. Antiemetics provided as needed. Patient was working with physical and occupational therapists. Supplemental oxygen and pulmonary toilet provided as needed. Incentive spirometry encouraged while in the bed. Blood pressure was managed with ARB. Blood sugar was managed with Januvia and sliding scale of insulin as needed. LFT trended down. GI prophylaxis provided. Psychiatrist seen and evaluated the patient, diagnosed patient with schizoaffective bipolar type . Psychiatric medication regimen was optimized. Supportive therapy provided. Patient clinically stabilized and was ready for discharge back to half-way facility for continuation of care. FINAL DIAGNOSES: Upper GI bleeding Status post EGD with biopsy Gastritis Anemia Acute cholecystitis Umbilical hernia Status post laparoscopic cholecystectomy with umbilical hernia repair COPD Hypertension Diabetes mellitus Schizoaffective disorder bipolar type DISCHARGE MEDICATIONS: See Medication Reconciliation list. DISCHARGE INSTRUCTIONS: Patient was discharged to the half-way facility. Follow up with medical doctor at the facility. Dara Ojeda NP Oct 12, 2018 13:58
== END 2018-10-11 18:57 | DRG 417 ==
LOC: EDBD 09:16 → EMR 10:15 → 4E 10:20 → EDBEDREQ 11:02
PROC: 0DB78ZX Excision of Stomach, Pylorus, Via Natural or Artificial Opening Endoscopic, Diagnostic (ICD-10-PCS; principal; 2018-10-05 12:30)
PROC: 0FT44ZZ Resection of Gallbladder, Percutaneous Endoscopic Approach (ICD-10-PCS; 2018-10-07)
PROC: 0WQF4ZZ Repair Abdominal Wall, Percutaneous Endoscopic Approach (ICD-10-PCS; 2018-10-07)
DX: K81.0 Acute cholecystitis (principal); K29.51 Unspecified chronic gastritis with bleeding; D61.818 Other pancytopenia; J44.9 Chronic obstructive pulmonary disease, unspecified; I10 Essential (primary) hypertension; E11.40 Type 2 diabetes mellitus with diabetic neuropathy, unspecified; F25.0 Schizoaffective disorder, bipolar type; G20 Parkinson's disease; R62.7 Adult failure to thrive; I25.10 Atherosclerotic heart disease of native coronary artery without angina pectoris; K44.9 Diaphragmatic hernia without obstruction or gangrene; K91.5 Postcholecystectomy syndrome
CPT/HCPCS: 36415; 71045; 74177; 76700; 78266; 80048; 80053; 81003; 82150; 82270; 82550; 82607; 82728; 82746; 82962; 83540; 83550; 83690; 83735; 84100; 84484; 85007; 85025; 85610; 85730; 86705; 86709; 86803; 86850; 86900; 86901; 87040; 87081; 87086; 87340; 93005; 93970; 94003; 94150; 96361; 96374; 96375; 97803; 99285; J1815; J2250; J2405; J2710; J2765

== ENCOUNTER 2018-10-15 13:26 | Emergency (ER) | payer MEDICARE, OTHER ==
[~2018-10-15] VITALS: Ht 190.5 cm; Wt 86.2 kg
[~2018-10-15 13:26] MED LIST changes: +JANUVIA25 MG ORAL; +MIRALAX17 GM ORAL
[2018-10-15] MEDS ORDERED: Ketorolac 30mg Inj IV ONE (13:45)
[2018-10-15 13:54] VITALS: BP 156/62
[2018-10-15 14:10] LABS: APPEARANCE,URINE CLEAR; BILIRUBIN, URINE NEGATIVE (NEGATIVE); GLUCOSE, URINE (UA) NEGATIVE (NEGATIVE); KETONES,URINE 1+ (NEGATIVE); LEUKOCYTE ESTERASE ,URINE NEGATIVE (NEGATIVE); NITRITE,URINE NEGATIVE (NEGATIVE); PH,URINE 8 (4.5-8.0); PROTEIN,URINE NEGATIVE (NEGATIVE); UROBILINOGEN,URINE NORMAL MG/DL (0.0-1.0)
[2018-10-15 14:11] LABS: COLOR,URINE YELLOW
[2018-10-15 14:29] LABS: ANION GAP 13 mmol/L (5-15); BLOOD UREA NITROGEN 23 mg/dL (7-18); CALCIUM 9.4 MG/DL (8.5-10.1); CARBON DIOXIDE 25 MMOL/L (21-32); CHLORIDE 104 MMOL/L (98-107); CREATININE 1.1 MG/DL (0.55-1.30); POTASSIUM 4.3 MMOL/L (3.5-5.1); SODIUM 142 MMOL/L (136-145)
[2018-10-15 14:31] LABS: HEMOGLOBIN 12.6 G/DL (14.2-18.0); MEAN CORPUSCULAR VOLUME 89 FL (80-99); PLATELET COUNT 308 K/UL (150-450); RED BLOOD COUNT 4.16 M/UL (4.70-6.10); RED CELL DISTRIBUTION WIDTH 11.3 % (11.6-14.8); WHITE BLOOD COUNT 9.6 K/UL (4.8-10.8)
[2018-10-15 14:35] LABS: ALANINE AMINOTRANSFERASE 45 U/L (12-78); ALBUMIN 3.3 G/DL (3.4-5.0); ALBUMIN/GLOBULIN RATIO 0.6 (1.0-2.7); ALKALINE PHOSPHATASE 152 U/L (46-116); ASPARTATE AMINO TRANSFERASE 28 U/L (15-37); BILIRUBIN,TOTAL 0.7 MG/DL (0.2-1.0)
--- NOTE | 2018-10-15 14:42 | Diagnostic Imaging Report ---
Indication: Right-sided sharp abdominal and flank pain radiating to the right shoulder Technique: Spiral acquisitions obtained through the abdomen and pelvis. No oral contrast utilized, per emergency room physician request No IV contrast utilized, per emergency room physician request.. Multiplanar reconstructions were generated. Total dose length product 779.85 mGycm. CTDIvol(s) 14.12 mGy. Dose reduction achieved using automated exposure control Comparison: 10/04/2018 contrast study Findings: Interim cholecystectomy. There is a fluid collection in the gallbladder fossa which measures 4.9 x 3.8 x 4.3 cm. A small amount of free fluid is seen surrounding the liver. Free fluid is also seen within the pelvis. A few tiny gas bubbles are seen in the right upper quadrant anterior abdominal wall at and below the costal margin. Some inflammatory stranding of the colonic mesentery is noted adjacent to the gallbladder fossa. Lack of IV contrast limits assessment of the solid organs. A calcification is seen within or adjacent to the capsule of the right hepatic lobe segment 8, also evident previously. No focal liver lesions otherwise. No biliary ductal dilatation. The pancreas is unremarkable. The spleen is borderline enlarged, measuring 13.6 cm long axis dimension. The adrenals are unremarkable. The kidneys demonstrate bilateral perinephric fat stranding, as previously. Previously demonstrated hypoattenuating parenchymal lesions are not clearly evident on current noninfused exam. No hydronephrosis, renal or ureteral calculi demonstrated. Not completely excludable but also possible. There is slight bladder wall thickening despite its being distended. No evidence of diverticulosis or diverticulitis. The appendix is normal. No small bowel distention. No free intraperitoneal gas. Distal esophagus, stomach, duodenum are unremarkable. Tiny fat-containing right inguinal hernia again demonstrated The included lung bases are clear except for minimal posterior dependent pulmonary atelectatic changes. There is a small anterior wall pericardial effusion, not clearly evident previously. The bones demonstrate degenerative spondylosis changes. There is again demonstrated is bilateral L4 spondylolysis and resultant grade 1 L4 on L5 spondylolisthesis. There is increased attenuation of the anterior abdominal wall subcutaneous fat Impression: Interim cholecystectomy since previous exam of 10/04/2018 4.9 x 3.8 x 4.3 cm fluid collection within the gallbladder fossa. Most likely represent routine postoperative fluid. Biloma or infected collections cannot completely excludable, however Free intraperitoneal fluid, most likely related to recent surgery. Fluid secondary to bile leak Gas bubbles within the anterior abdominal wall the right upper quadrant, presumably related to recent surgical exposure Slight stranding of the anterior abdominal wall subcutaneous fat, could be related to the recent surgery Borderline splenomegaly New finding of small anterior wall pericardial effusion Bilateral perinephric fat stranding. Nonspecific as regards etiology but unchanged since previous study Bilateral L4 spondylolysis and result in grade 1 L4 and L5 spondylolisthesis, also previously described Incidental findings as noted, including degenerative spondylosis, dependent pulmonary atelectatic changes, hepatic capsular calcification, tiny fat-containing right inguinal hernia The CT scanner at [facility] is accredited by the [employer] and the scans are performed using protocols designed to limit radiation exposure to as low as reasonably achievable to attain images of sufficient resolution adequate for diagnostic evaluation.
--- NOTE | 2018-10-15 14:52 | Emergency Room Report ---
History of Present Illness General Chief Complaint: Abdominal Pain Source: Patient Present Illness HPI This is a 68-year-old male who has had a recent laparoscopic cholecystectomy, who presents with intermittent left upper quadrant abdominal pain that radiates to his chest. He states when he belches it hurts. He describes it as a burning like sensation. He denies any vomiting, diarrhea, fever. No other associated symptoms. Onset this morning. Allergies: Coded Allergies: No Known Allergies (Unverified , 12/26/17) Patient History Past Surgical History: melissa Pertinent Family History: none Nursing Documentation-PMH Past Medical History: No History, Except For Hx Hypertension: Yes Hx COPD: Yes Hx Diabetes: Yes Hx Cancer: No Hx Gastrointestinal Problems: No - gerd Hx Neurological Problems: Yes - PARKINSONS Hx Parkinson's Disease: Yes Hx Seizures: Yes Review of Systems All Other Systems: negative except mentioned in HPI Physical Exam Vital Signs Date Time Temp Pulse Resp B/P (MAP) Pulse Ox O2 Delivery O2 Flow Rate FiO2 10/15/18 13:27 98.2 85 18 155/75 98 Room Air General Appearance: no apparent distress, alert, GCS 15, non-toxic Neck: full range of motion, supple/symm/no masses Respiratory: chest non-tender, lungs clear, normal breath sounds, speaking full sentences Cardiovascular #1: regular rate, rhythm, no edema Gastrointestinal: normal inspection, normal bowel sounds, soft - Very minimum abdominal tenderness on the right upper quadrant, other - Surgical scars are clear, dry, intact Neurologic: alert, oriented x3, responsive, motor strength/tone normal, sensory intact, speech normal Medical Decision Making Diagnostic Impression: Primary Impression: Abdominal pain ER Course Patient presented with significant complexity or wrists requiring multiple bedside evaluations. The patient has absolutely no abdominal tenderness on my repeat examination. He started by mouth challenge. Blood work was reviewed. Differential diagnosis included, appendicitis, diverticulitis, intra-abdominal abscess, wound infection, post surgical consultation. I also considered abdominal aortic aneurysm, mesenteric ischemia, urinary tract infection and sepsis. Patient's blood work was reviewed. At this time, the patient will be started on pain medication at home for close follow-up with his primary care physician and to return if any change in symptoms or worsening symptoms. Laboratory Tests Test 10/15/18 13:50 10/15/18 14:20 Urine Color Yellow Urine Appearance Clear Urine pH 8 (4.5-8.0) Urine Specific Peterson 1.010 (1.005-1.035) Urine Protein Negative (NEGATIVE) Urine Glucose (UA) Negative (NEGATIVE) Urine Ketones 1+ (NEGATIVE) H Urine Blood 1+ (NEGATIVE) H Urine Nitrite Negative (NEGATIVE) Urine Bilirubin Negative (NEGATIVE) Urine Urobilinogen Normal MG/DL (0.0-1.0) Urine Leukocyte Esterase Negative (NEGATIVE) Urine RBC 0-2 /HPF (0 - 0) H Urine WBC 0 /HPF (0 - 0) Urine Squamous Epithelial Cells Occasional /LPF Urine Bacteria None /HPF (NONE) Sodium Level 142 MMOL/L (136-145) Potassium Level 4.3 MMOL/L (3.5-5.1) Chloride Level 104 MMOL/L (98-107) Carbon Dioxide Level 25 MMOL/L (21-32) Anion Gap 13 mmol/L (5-15) Blood Urea Nitrogen 23 mg/dL (7-18) H Creatinine 1.1 MG/DL (0.55-1.30) Estimate Glomerular Filtration Rate > 60 mL/min (>60) Glucose Level 179 MG/DL (74-106) H Calcium Level 9.4 MG/DL (8.5-10.1) Total Bilirubin 0.7 MG/DL (0.2-1.0) Aspartate Amino Transferase (AST) 28 U/L (15-37) Alanine Aminotransferase (ALT) 45 U/L (12-78) Alkaline Phosphatase 152 U/L (46-116) H Total Protein 8.8 G/DL (6.4-8.2) H Albumin 3.3 G/DL (3.4-5.0) L Globulin 5.5 g/dL Albumin/Globulin Ratio 0.6 (1.0-2.7) L Lipase 100 U/L (73-393) White Blood Count 9.6 K/UL (4.8-10.8) Red Blood Count 4.16 M/UL (4.70-6.10) L Hemoglobin 12.6 G/DL (14.2-18.0) L Hematocrit 37.0 % (42.0-52.0) L Mean Corpuscular Volume 89 FL (80-99) Mean Corpuscular Hemoglobin 30.3 PG (27.0-31.0) Mean Corpuscular Hemoglobin Concent 34.0 G/DL (32.0-36.0) Red Cell Distribution Width 11.3 % (11.6-14.8) L Platelet Count 308 K/UL (150-450) Mean Platelet Volume 5.6 FL (6.5-10.1) L Neutrophils (%) (Auto) % (45.0-75.0) Lymphocytes (%) (Auto) % (20.0-45.0) Monocytes (%) (Auto) % (1.0-10.0) Eosinophils (%) (Auto) % (0.0-3.0) Basophils (%) (Auto) % (0.0-2.0) Differential Total Cells Counted 100 Neutrophils % (Manual) 88 % (45-75) H Lymphocytes % (Manual) 7 % (20-45) L Monocytes % (Manual) 3 % (1-10) Eosinophils % (Manual) 1 % (0-3) Basophils % (Manual) 1 % (0-2) Band Neutrophils 0 % (0-8) Platelet Estimate Adequate Platelet Morphology Normal Red Blood Cell Morphology Normal Last Vital Signs Date Time Temp Pulse Resp B/P (MAP) Pulse Ox O2 Delivery O2 Flow Rate FiO2 10/15/18 13:54 98.2 100 16 156/62 98 Room Air Status: improved Disposition: HOME, SELF-CARE Condition: Stable Scripts Famotidine (PEPCID) 40 Mg/5 Ml Oral.susp 40 MG PO DAILY, #20 ML Prov: SILVIANO MADERA 10/15/18 Dicyclomine Hcl (BENTYL) 10 Mg/1 Ml Ampul 10 MG IM TID, #14 AMP Prov: SILVIANO MADERA 10/15/18 Referrals: Sharif Sanabria DO (PCP) Patient Instructions: Abdominal Pain, Adult SILVIANO MADERA Oct 15, 2018 14:52
[2018-10-15 15:29] VITALS: BP 118/45
[2018-10-15] MEDS ORDERED: MILK OF MA400 MG/51 ORAL (16:46)
[2018-10-15 17:18] VITALS: BP 143/74
[2018-10-15] MEDS ORDERED: BENTYL10 MG/1 ML IM (17:43)
[2018-10-15] MEDS ORDERED: PEPCID40 MG/5 ML PO (17:43)
[2018-10-15 20:23] VITALS: BP 132/60
[2018-10-15 20:24] VITALS: BP 132/60
== END 2018-10-15 20:24 | disposition home or self-care (01) ==
LOC: EDBD 13:26 → EDUNIT# 13:26 → EMR 13:46
DX: R10.12 Left upper quadrant pain (principal); I10 Essential (primary) hypertension; E11.9 Type 2 diabetes mellitus without complications; G20 Parkinson's disease
CPT/HCPCS: 36415; 74176; 80053; 81003; 83690; 85007; 85025; 96361; 96374; 99284; J1885